=== PATIENT | female | born 1995 | race Caucasian/White ===

== ENCOUNTER → 2018-05-05 09:45 | Outpatient (CLI) | payer MEDICAID, SELFPAY ==
[2018-05-05 09:43] VITALS: BMI 19.3
[2018-05-05 10:34] LABS: Estradiol 28.1 pg/mL; Follicle Stimulating Hormone 6.5 mIU/mL; Prolactin 93.2 ng/mL; Thyroid Stim Hormone (TSH) 1.49 uIU/mL (0.358-3.74)
[2018-05-05 13:00] LABS: HIV - WCH Non-Reactive (Nonreactive)
[2018-05-05 16:31] LABS: Chlamydia Trachomatis by PCR Negative (Negative); Neisserai gonorrhoeae by PCR Negative (Negative); Probe Check PASS; Sample Adequacy Control PASS; Specimen Processing Control PASS
[2018-05-06 11:20] LABS: HEPATITIS B SURFACE AG Negative (Negative); HSV 1 IgG < 0.91 index (0.00-0.90)
[2018-05-07 15:40] LABS: HPV Reflexed? NOT INDICATED
[2018-05-08 02:05] LABS: Rapid Plasmin Reagin (RPR) NONREACTIVE (NONREACTIVE)
== END ==
PROVIDERS: Referring Provider Nurse Practitioner Women's Health; Visit Provider Nurse Practitioner Women's Health
DX: N91.1 Secondary amenorrhea (principal); Z11.3 Encounter for screening for infections with a predominantly sexual mode of transmission; Z12.4 Encounter for screening for malignant neoplasm of cervix
CPT/HCPCS: 36415; 82670; 83001; 84146; 84443; 86592; 86695; 86696; 86703; 87340; 87491; 87591; 87624; 88175; G0145

== ENCOUNTER → 2018-05-12 15:32 | Outpatient (CLI) | payer MEDICAID, SELFPAY ==
[2018-05-05 09:43] VITALS: BMI 19.3
--- NOTE | 2018-05-12 15:33 | MRI_ITS ---
We are attempting to reach Mavis Sheridan to discuss findings. An addendum with communication details will be sent when the communication is complete. STUDY: MRI BRAIN WITHOUT CONTRAST REASON FOR EXAM: Female, 23 years old. Hyperprolactinemia TECHNIQUE: Standardized multiplanar fat and water weighted pulse sequences were obtained. COMPARISON: None. FINDINGS: There is a large 1.5 x 1.2 cm fairly homogeneous mass originating from the left half of the pituitary gland. The mass is bright on T1, isointense to brain on T2, dark on DWI, very bright on T2 FLAIR. The internal carotid artery is well visualized. There the differential diagnosis to consider would be a pituitary macroadenoma with hemorrhage or necrosis, craniopharyngioma, Rathke's cleft cyst, a lipoma. A repeat study with contrast is suggested for The brainstem is normal. The corpus callosum is normal. The 7th and 8th nerve complexes are normal. Both cerebellopontine angles are clear. The cerebellar vermis and lobes are normal. The ventricles, basal cisterns and cortical sulci are normal with no midline shift and no intra or extra-axial hemorrhage or tumor mass. There is no acute infarction. The calvarium is intact. There are no scalp swelling. The vessels at the base of the brain are normal. The orbits, paranasal sinuses and mastoid air cells are normal.. MRI/Brain without Contrast IMPRESSION: A large 1.5 x 1.2 cm fairly homogeneous mass originating from the left half of the pituitary gland. It is bright on T1 and isointense on T2. The differential diagnosis to consider would be a macroadenoma with hemorrhage, a craniopharyngioma or a Rathke's cleft cyst. A lipoma is possible but less likely. A repeat study with contrast is suggested. Electronically Signed: Bert Herman MD at 6:59 EDT Tel , Service support ,
== END ==
PROVIDERS: Referring Provider Obstetrics & Gynecology; Visit Provider Obstetrics & Gynecology
DX: E22.1 Hyperprolactinemia (principal)
CPT/HCPCS: 70551

== ENCOUNTER → 2018-10-23 | Outpatient (CLI) | payer MEDICAID, SELFPAY ==
[2018-10-20 15:15] VITALS: BMI 19.3
--- NOTE | 2018-10-23 11:08 | US_ITS ---
STUDY: ULTRASOUND BREAST - RIGHT REASON FOR EXAM: Female, 23 years old. Palpable lump in the right breast. TECHNIQUE: Axial and longitudinal images of the RIGHT breast were performed with a high resolution ultrasound transducer. COMPARISON: None. FINDINGS: RIGHT Breast: The inferior half of the right breast was examined by ultrasound. There is a homogeneous thyroid glandular tissue. No sonographic abnormality is seen. US/Breast Limited Unilateral IMPRESSION: No sonographic abnormality is seen. ASSESSMENT CATEGORY: BIRADS Category 1: Negative. A letter regarding these results will be sent to the patient by the facility within 30 days. Electronically Signed: Last Humphreys, at 12:24 EDT , Service support ,
== END | disposition home or self-care (01) ==
PROVIDERS: Referring Provider Nurse Practitioner Women's Health; Visit Provider Nurse Practitioner Women's Health
DX: N63.10 Unspecified lump in the right breast, unspecified quadrant (principal)
CPT/HCPCS: 76642

== ENCOUNTER → 2019-05-12 17:07 | Outpatient (CLI) | payer MEDICAID, SELFPAY ==
[2019-04-13 11:09] VITALS: BMI 19.3
--- NOTE | 2019-05-12 17:08 | MRI_ITS ---
STUDY: MRI BRAIN WITH AND WITHOUT CONTRAST REASON FOR EXAM: Female, 24 years old. macroadenoma 1 YR F/U TECHNIQUE: Standardized multiplanar fat and water weighted pulse sequences were obtained. IV 10CC DOTAREM was administered for the contrast portion of the examination. COMPARISON: May 12, 2018 FINDINGS: Normal size of the ventricles and extra-axial spaces for the patient''s age. Normal white matter tracts of the supratentorial brain. Normal bilateral basal ganglia. Normal thalami. There is no extra-axial fluid accumulation. Normal flow voids within the major intracranial circulation suggesting patency by spin echo criteria. Normal venous enhancement. There is no enhancing intra-axial or extra-axial abnormality. There is a tiny nonenhancing nodule in the pituitary on the left measuring approximately 6.3 x 3.5 mm consistent with adenoma. Normal, infundibular stalk, optic chiasm and hypothalamus. Normal tectal plate and pineal gland. Normal midbrain, rachelle and medulla. Normal cerebellum. Normal basal cisterns. Normal bilateral temporal bones. Normal bilateral internal auditory canals. No demonstrated orbital abnormality, within the constraints of a routine brain study. Large mucous retention cyst in left maxillary sinus. Normal calvarium and skull base. Normal visualized soft tissue structures. Normal visualized upper cervical spine. The pituitary adenoma has decreased in size significantly since previous study. MRI/Brain W/WO Contrast IMPRESSION: Persistent adenoma within the pituitary which has decreased in size significantly since previous exam No other significant change Electronically Signed: Syed Clancy MD at 19:36 EDT , Service support ,
== END ==
PROVIDERS: Referring Provider Internal Medicine Endocrinology, Diabetes & Metabolism; Visit Provider Internal Medicine Endocrinology, Diabetes & Metabolism
DX: D35.2 Benign neoplasm of pituitary gland (principal)
CPT/HCPCS: 70553; A9575

== ENCOUNTER → 2019-06-12 | Outpatient (CLI) | payer MEDICAID, SELFPAY ==
[2019-04-13 11:09] VITALS: BMI 19.3
[2019-06-12 09:30] LABS: Absolute Lymphocyte Count 2.93 X10^3/uL (0.83-4.51); Absolute Neutrophil Count 2.5 X10^3/uL (2.0-7.7); Basophil# 0.07 X10^3/uL; Basophil% 1.1 % (0-1); Eosinophil# 0.16 X10^3/uL; Eosinophils% 2.6 % (0-5); Hemoglobin 15.6 g/dL (12.0-15.0); Lymphocyte # 2.93 X10^3/ul (4.0); Lymphocyte % 47.3 % (19-41); Mean Corp Hgb Conc 32.5 g/dL (32-36); Mean Corpuscular Hgb 29.8 pg (27.0-32.0); Mean Corpuscular Volume 91.8 fL (81-99); Mean Platelet Vol. 10.3 fl (6.2-12.0); Monocyte# 0.49 X10^3/uL; Monocyte% 7.9 % (0-10); NRBC Flagged by Analyzer 0 % (0-5); Neutrophil # 2.53 X10^3/uL (2.7-7.7); Neutrophil % 40.9 % (47-70); Platelet Count 226 K/mm3 (150-450); RBC Distribution Width CV 13.7 % (11.6-14.6); RBC Distribution Width SD 45.9 fl (35.1-43.9); Red Blood Count 5.23 M/mm3 (4.2-5.4); White Blood Count 6.2 K/mm3 (4.4-11.0)
[2019-06-12 10:01] LABS: Prolactin 2.7 ng/mL; T4 Free Direct 0.87 ng/dL (0.76-1.46); Thyroid Stim Hormone (TSH) 1.24 uIU/mL (0.358-3.74)
[2019-06-15 05:57] LABS: Insulin Like Growth Factor 276 ng/mL (93-342)
== END | disposition home or self-care (01) ==
PROVIDERS: Referring Provider Internal Medicine Endocrinology, Diabetes & Metabolism; Visit Provider Internal Medicine Endocrinology, Diabetes & Metabolism
DX: E22.0 Acromegaly and pituitary gigantism (principal); E22.1 Hyperprolactinemia; E23.7 Disorder of pituitary gland, unspecified; D35.2 Benign neoplasm of pituitary gland
CPT/HCPCS: 36415; 84146; 84305; 84439; 84443; 85025

== ENCOUNTER 2019-06-17 16:16 | Emergency (ER) | payer MEDICAID, SELFPAY ==
[2019-04-13 11:09] VITALS: BMI 19.3
[2019-06-17 16:17] VITALS: BP 124/84; PULSE 89; RESP 14; TEMP 36.8; O2SAT 100; BMI 18.0
--- NOTE | 2019-06-17 16:34 | ED.VIS.GEN ---
History of Present Illness Chief Complaint: Lower Extremity Injury Informant: Patient Onset: Weeks - 3 weeks Context: Gradual Onset Timing: Waxes and wanes Current Severity: Mild Maximum Severity: Moderate Narrative: Patient presents with pain to the left calf for the past 3 weeks. She is concerned that she may have a blood clot. She denies any swelling to the leg. She denies risk factors for DVT. She denies chest pain or shortness of breath. - Past Medical History (1) Hyperprolactinemia Status: Chronic (2) Pituitary macroadenoma Status: Chronic Past Medical History - Allergies and Home Meds Allergies/Adverse Reactions: Allergies bees Allergy (Uncoded 06/17/19 16:17) Hives Primary Care Physician: Care Physician,No Primary [Primary Care Provider] - Prior records reviewed: Yes Smoking Status: Former smoker Review of Systems General: Denies: Chills, Fever Eyes: Denies: Visual changes - bilaterally ENT: Denies: Bilateral ear pain Cardiovascular: Denies: Chest pain Respiratory: Denies: Dyspnea Gastrointestinal: Denies: Abdominal pain, Nausea, Vomiting, Diarrhea Musculoskeletal: Reports: Extremity Pain. Denies: Swelling Skin: Denies: Rash Neurological: Denies: Headache, Weakness, Parasthesia Hematologic: Denies: Easy bruising, Easy bleeding Allergy: Denies: Uticaria Physical Exam Vital Signs/Narrative: Vital Signs Temp Pulse Resp BP Pulse Ox 06/17/19 16:17 98.3 F 89 14 124/84 H 100 Inital Vital Signs reviewed: Yes General: Well nourished, Well developed Head: Normocephalic ENT: Dry mucous membranes Neck: Supple Cardiovascular: Regular rate, Regular rhythm Respiratory: No distress, CTA bilaterally Abdomen: Soft, Nontender Extremities: - - Mild tenderness to the proximal left posterior calf. No edema. No erythema or cords. Strong distal pulses. No joint tenderness. Full range of motion. Neurological: Alert, Oriented x3, Normal Strength, Normal Sensation Psychological: Normal affect Diagnostic/Tx/Re-eval Impressions Venous Duplex 06/17/19 16:43 IMPRESSION: Normal venous Doppler ultrasound of the lower extremity. Electronically Signed: John Reyna MD at 17:51 EDT Tel , Service support , - Medical Decision Making Venous ultrasound reveals no evidence of DVT. She will be started on anti-inflammatories. She is referred to abelino Ngo in the no doc list for follow-up. ED Disposition - Plan for ED Patient: Disposition: Home or Assisted Living Diagnosis: Strain of calf muscle Instructions: ED Strain Muscle Ext Prescriptions: Naproxen [Naprosyn] 500 mg PO BID PRN #14 tab PRN Reason: Pain Score 4-10/10 Transmission Status: Pending to [id number] Referrals: Sarabjit Omer MD [STAFF PHYSICIAN] - As Needed
--- NOTE | 2019-06-17 16:43 | US_ITS ---
STUDY: VENOUS DOPPLER ULTRASOUND - LEFT LOWER EXTREMITY REASON FOR EXAM: Female, 24 years old. LEFT LEG PAIN TECHNIQUE: Ultrasound evaluation of the deep vein system to include puente-scale imaging and compression was performed. Puente-scale imaging and Doppler sonographic evaluation, including duplex spectral analysis and qualitative color flow sonography, was performed. COMPARISON: None. FINDINGS: Common Femoral Vein: Normal compression, spontaneity and augmentation. Normal color Doppler. Common Femoral Vein/Greater Saphenous Junction: Normal compression, spontaneity and augmentation. Normal color Doppler. Deep Femoral Vein: Normal compression, spontaneity and augmentation. Normal color Doppler. Femoral Proximal: Normal compression, spontaneity and augmentation. Normal color Doppler. Femoral Middle: Normal compression, spontaneity and augmentation. Normal color Doppler. Femoral Distal: Normal compression, spontaneity and augmentation. Normal color Doppler. Popliteal Vein: Normal compression, spontaneity and augmentation. Normal color Doppler. Posterior Tibial Vein: Normal compression, spontaneity and augmentation. Normal color Doppler. Peroneal Vein: Normal compression, spontaneity and augmentation. Normal color Doppler. US/Venous Duplex Imag/Limited/Uni IMPRESSION: Normal venous Doppler ultrasound of the lower extremity. Electronically Signed: John Reyna MD at 17:51 EDT Tel , Service support ,
[2019-06-17 18:02] VITALS: BP 118/74; PULSE 62; RESP 15; O2SAT 98
== END 2019-06-17 18:02 | disposition home or self-care (01) ==
PROVIDERS: Emergency Provider Emergency Medicine
DX: S86.112A Strain of other muscle(s) and tendon(s) of posterior muscle group at lower leg level, left leg, initial encounter (principal); Z87.891 Personal history of nicotine dependence; X58.XXXA Exposure to other specified factors, initial encounter; Y93.89 Activity, other specified; Y92.89 Other specified places as the place of occurrence of the external cause; Y99.8 Other external cause status
CPT/HCPCS: 93971; 99282

== ENCOUNTER → 2019-08-10 | Outpatient (CLI) | payer MEDICAID, SELFPAY ==
[2019-08-10 10:43] LABS: Prolactin 3.3 ng/mL
[2019-08-10 12:43] LABS: Internal QC Validated? YES +Cl - CLEAR BKGD; Pregnancy, Serum, hCG Quali. NEGATIVE Negative
[2019-08-10 13:00] LABS: Estradiol 58.1 pg/mL; Follicle Stimulating Hormone 6.6 mIU/mL; Luteinizing Hormone 34.4 mIU/mL; T4 Free Direct 0.86 ng/dL (0.76-1.46)
[2019-08-11 18:18] LABS: Somatomedin C 269 ng/mL (101-347)
== END | disposition home or self-care (01) ==
LOC: LAB 09:21
PROVIDERS: Referring Provider Internal Medicine Endocrinology, Diabetes & Metabolism; Visit Provider Internal Medicine Endocrinology, Diabetes & Metabolism
DX: D35.2 Benign neoplasm of pituitary gland (principal); E22.1 Hyperprolactinemia; N91.2 Amenorrhea, unspecified
CPT/HCPCS: 36415; 82670; 83001; 83002; 84146; 84305; 84439; 84703

== ENCOUNTER → 2020-02-09 15:40 | Outpatient (CLI) | payer MEDICAID, SELFPAY ==
[2020-02-09 16:00] LABS: Absolute Lymphocyte Count 2.35 X10^3/uL (0.83-4.51); Absolute Neutrophil Count 5.1 X10^3/uL (2.0-7.7); Basophil# 0.07 X10^3/uL; Basophil% 0.9 % (0-1); Eosinophil# 0.03 X10^3/uL; Eosinophils% 0.4 % (0-5); Hematocrit 46.7 % (37-47); Hemoglobin 15.7 g/dL (12.0-15.0); Lymphocyte # 2.35 X10^3/ul (4.0); Mean Corp Hgb Conc 33.6 g/dL (32-36); Mean Corpuscular Volume 89.1 fL (81-99); Monocyte# 0.54 X10^3/uL; Monocyte% 6.7 % (0-10); NRBC Flagged by Analyzer 0 % (0-5); Neutrophil # 5.09 X10^3/uL (2.7-7.7); Neutrophil % 62.8 % (47-70); Platelet Count 300 K/mm3 (150-450); RBC Distribution Width CV 12.8 % (11.6-14.6); RBC Distribution Width SD 42.3 fl (35.1-43.9); Red Blood Count 5.24 M/mm3 (4.2-5.4); White Blood Count 8.1 K/mm3 (4.4-11.0)
[2020-02-09 17:07] LABS: ALB/GLOB Ratio 1.4 RATIO (0.9-2.4); AST(SGOT) 35 U/L (15-37); Alanine Aminotransfer ALT/SGPT 37 U/L (13-56); Albumin, Serum 4.6 g/dL (3.2-5.0); Alkaline Phosphatase 55 U/L (45-117); Anion Gap 10 (5-15); BUN 13 mg/dL (7-18); BUN/Creat Ratio 17.2 RATIO (10-20); Calcium,Total 9.8 mg/dL (8.5-10.1); Chloride 102 mmol/L (98-107); Creatinine, Serum 0.76 mg/dL (0.55-1.02); EST Glomerular Filtration Rate 99 mL/min (>60); Est Glom Filt Rate - Afr Amer 120 mL/min (>60); Estradiol 48.3 pg/mL; Globulin 3.2 g/dL (2.2-4.2); Glucose 96 mg/dL (74-106); Potassium 3.5 mmol/L (3.5-5.1); Protein, Total 7.8 g/dL (6.4-8.2); Sodium Level 137 mmol/L (136-145); T4 Free Direct 1.09 ng/dL (0.76-1.46); Thyroid Stim Hormone (TSH) 1.41 uIU/mL (0.358-3.74)
== END ==
PROVIDERS: PCP Family Medicine; Visit Provider Internal Medicine Endocrinology, Diabetes & Metabolism
DX: E22.1 Hyperprolactinemia (principal); F32.9 Major depressive disorder, single episode, unspecified; F41.9 Anxiety disorder, unspecified; R25.1 Tremor, unspecified
CPT/HCPCS: 36415; 80053; 82670; 84146; 84439; 84443; 85025

== ENCOUNTER → 2020-12-11 15:50 | Outpatient (CLI) | payer MEDICAID, SELFPAY ==
[2020-12-11 19:12] LABS: Prolactin 8.3 ng/mL; Thyroid Stim Hormone (TSH) 1.09 uIU/mL (0.358-3.74)
== END ==
PROVIDERS: PCP Family Medicine; Visit Provider Internal Medicine Endocrinology, Diabetes & Metabolism
DX: E22.1 Hyperprolactinemia (principal)
CPT/HCPCS: 36415; 84146; 84439; 84443

== ENCOUNTER 2021-04-17 09:49 | Outpatient (CLI) | payer MEDICAID, SELFPAY ==
[2021-04-17 11:12] LABS: Prolactin 8.7 ng/mL
[2021-04-18 22:07] LABS: Chlamydia By Nucleic Acid AMP Negative (Negative)
[2021-04-19 19:12] LABS: Gonococcus By Nucleic Acid AMP Negative (Negative)
[2021-04-20 15:25] LABS: HPV Reflexed? NOT INDICATED
== END 2021-04-17 23:59 | disposition home or self-care (01) ==
LOC: LAB 09:52
PROVIDERS: Nurse Practitioner Women's Health; PCP Family Medicine; Referring Provider Internal Medicine Endocrinology, Diabetes & Metabolism; Visit Provider Internal Medicine Endocrinology, Diabetes & Metabolism
DX: Z12.4 Encounter for screening for malignant neoplasm of cervix (principal); Z11.3 Encounter for screening for infections with a predominantly sexual mode of transmission; N76.0 Acute vaginitis
CPT/HCPCS: 36415; 84146; 87070; 87205; 87491; 87591; 88175; G0145

== ENCOUNTER → 2021-08-22 | Outpatient (CLI) | payer MEDICAID, SELFPAY ==
[2021-08-23 22:07] LABS: Chlamydia By Nucleic Acid AMP Negative (Negative)
[2021-08-23 22:23] LABS: Gonococcus By Nucleic Acid AMP Negative (Negative)
== END | disposition home or self-care (01) ==
LOC: LABSPEC 11:40
PROVIDERS: PCP Family Medicine; Visit Provider Nurse Practitioner Women's Health
DX: N76.0 Acute vaginitis (principal); Z11.3 Encounter for screening for infections with a predominantly sexual mode of transmission
CPT/HCPCS: 87070; 87205; 87491; 87591

== ENCOUNTER → 2022-04-18 | Outpatient (CLI) | payer MEDICAID, SELFPAY ==
[2022-04-18 13:16] LABS: Estradiol 66.5 pg/mL; Prolactin 6.5 ng/mL
== END | disposition home or self-care (01) ==
LOC: LAB 11:39
PROVIDERS: PCP Family Medicine; Referring Provider Internal Medicine Endocrinology, Diabetes & Metabolism; Visit Provider Internal Medicine Endocrinology, Diabetes & Metabolism
DX: D35.2 Benign neoplasm of pituitary gland (principal); E22.1 Hyperprolactinemia
CPT/HCPCS: 36415; 82670; 84146

== ENCOUNTER 2022-07-02 10:08 | Outpatient (RCR) | payer MEDICAID, SELFPAY ==
--- NOTE | 2022-07-02 13:48 | BH.MTP_ITS ---
Master Treatment Plan - Patient Information Program Physician:: Dr. Marce Ma Primary Therapist:: Meka MONTES DE OCA - Psychiatric Diagnoses Psychiatric Diagnoses:: Panic disorder F 41.0; Agoraphobia; Social anxiety disorder Diagnosis Code(s):: F 41.0 - Estimated LOS Estimated LOS (in weeks):: 6 Problem/Goal #1 - Problem/Goal #1 Stated Goal:: Pt will reduce anxiety, avoidance, and panic while increasing ability to function on daily basis Description of Barriers: Pt's anxiety and panic disorder have been impacting pt's social, occupational, and familial functioning. Pt is unable to go to stores or go to stores due to anxiety and panic. Pt is not currently connected with outpatient services. Functional Impact: Pt is a 27-year-old female with a history of panic disorder and agoraphobia who was referred to [facility] tx by her instant potato processor at [facility]. Pt reports severe anxiety and agoraphobia for the past two years. Pt has been unable to work, go to social events with friends and family, and she barely leaves her house. Pt endorses panic attacks, fear of panic attacks, social anxiety, avoidance, ruminations, poor sleep, racing thoughts, and isolation. Goal Relevant Strengths/Supports: Pt is motivated to change and enjoys being in nature. - Objectives Objective #1 Stated Objective: Pt will identify 2-3 anxiety triggers and 2 coping skills to use when feeling anxious to manage anxiety as shown by decreasing DSM-5 scores for anxiety. Interventions: Therapist will provide education on anxiety, avoidance behaviors, and maintenance cycles. Therapist will help pt explore personal symptoms and warning signs of anxiety and panic. Therapist will teach pt coping skills to improve emotional regulation, mindfulness, and distress tolerance to help pt cope with anxiety in the moment. Discharge Criteria: Pt will have accomplished this goal when can identify at least 2 triggers and report using 2 coping skills to manage anxiety. Additionally, pt will have accomplished this goal when DSM-5 scores show a reduction for anxiety. Target Date: 08/13/22 Review Date: 07/23/22 Status: open Objective #2 Stated Objective: Pt will reduce avoidance behaviors that reinforce anxiety by setting 1-2 small exposure goals a week to increase socialization, increase mastery, and reduce anxiety over time. Interventions: Through group and individual sessions, pt will learn about the benefits of setting exposure goals to overcome anxiety-producing situations. Therapist will help pt set SMART goals and challenge barriers. Therapist will use cognitive restructuring techniques and help pt gain awareness of negative thoughts that reinforce avoidance behaviors and fear of judgement. Therapist will help pt incorporate mindfulness, opposite action, and self-talk strategies to manage anxiety. Discharge Criteria: Pt will have accomplished this goal when can report accomplishing at least one small exposure goal a week. Additionally, pt will be able to report decreased avoidance behaviors. Target Date: 08/13/22 Review Date: 07/23/22 Status: open Problem/Goal #2 - Problem/Goal #2 Stated Goal:: Pt will decrease depressive symptoms, lack motivation, isolation, and improve self-care. Description of Barriers: Pt's anxiety and panic disorder have been impacting pt's social, occupational, and familial functioning. Pt is unable to go to stores or go to stores due to anxiety and panic. Pt is not currently connected with outpatient services. Functional Impact: Pt is a 27-year-old female with a history of panic disorder and agoraphobia who was referred to [facility] tx by her instant potato processor at [facility]. Pt reports severe anxiety and agoraphobia for the past two years. Pt has been unable to work, go to social events with friends and family, and she barely leaves her house. Pt endorses panic attacks, fear of panic attacks, social anxiety, avoidance, ruminations, poor sleep, racing thoughts, and isolation. Goal Relevant Strengths/Supports: Pt is motivated to change and enjoys being in nature. - Objectives Objective #1 Stated Objective: Pt will learn and utilize 2-3 healthy coping strategies to better manage depressive symptoms and reduce isolation as shown by a decrease of DMS-5 symptoms for depression. Interventions: Through group and individual sessions, therapist will help pt identify triggers and warning signs of depression and guilt including emotional, physical, and behavioral changes. Therapist will teach pt various coping skills to manage symptoms and give pt tangible resources to use to regulate emotions. Therapist will use cognitive restructuring techniques and help pt gain awareness of negative thoughts that reinforce guilt and depression. Therapist will provide psychoeducation on maintenance cycles and help pt learn ways to break unhealthy maintenance cycles. Therapist will help pt incorporate behavioral activation and assist pt in setting SMART goals. Discharge Criteria: Pt will have met this goal when can report learning and using at least 2 coping skills to manage depressive symptoms and reduce isolation. Additionally, pt will have met this goal when pt's DSM-5 scores for depression decrease. Target Date: 08/13/22 Review Date: 07/23/22 Status: open Objective #2 Stated Objective: Pt will reduce anhedonia and improve mood through setting and accomplishing 2-3 behavioral activation goals a week. Interventions: Through group and individual sessions, pt will learn how to set small SMART goals to promote mood stability. Therapist will provide education on maintenance cycles for depression and help pt learn how to break unhealthy maintenance cycles Discharge Criteria: Pt will have accomplished this goal when can report accomplishing at least two behavioral activation goal a week. Target Date: 08/13/22 Review Date: 07/23/22 Status: open
--- NOTE | 2022-07-02 13:48 | BH.COMM ---
Communication Note - Communication with Client Communication Note: Met with patient to complete initial paperwork. Complete [facility] Suicide Screening. Low risk. Denies active SI, plan, or intent. No history of suicide attempts. History of thoughts of killing herself with a gun, but this was two years ago. No SI or thoughts of within the last month per her report. Protective factors. Future-oriented. Consulted with Dr. Fontanez with plan to admit to IOP level of care with dx F41.0
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
--- NOTE | 2022-07-02 13:49 | BH.PSA ---
Development & Family of Origin - Family History Family History: Family History (Last Reviewed 04/18/22 @ 11:[address] Perez Byrne MD) Grandfather Myocardial infarction Suicide Assessment Treatment Plan Recommendations
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
--- NOTE | 2022-07-03 10:05 | BH.SGPN.GN ---
Behaviors/Verbalizations/Mental Status: []Pt alert and oriented, neatly dressed and groomed. Eye contact good. Motor activity appropriate. Speech within normal limits. Affect constricted, mood anxious. Thoughts linear, logical, no signs of hallucinations or delusions. Client Response/Progress/Benefit: []Pt receptive of session, mostly passively engaged throughout AEB taking notes and listening to discussion. Appeared to connect with group topic of cognitive distortions and the impact of thought patterns on mental health, coping behaviors, and relationships. Pt did a lot of observing and note taking, but pt nodded in connection to the distortion of predicting the future. Pt appeared to benefit from gaining insight on distorted thinking patterns and how this impacts overall mental health. Pt?s second day of IOP tx and pt is highly anxious. Will continue IOP tx to prevent decompensation, gain healthy coping skills, and improve daily functioning. Narrative Note: []
--- NOTE | 2022-07-03 11:12 | BH.SGPN.GN ---
Behaviors/Verbalizations/Mental Status: []Eye contact is good. Motor activity is appropriate. Appearance is casual. Speech is WNL. Mood is depressed and anxious. Affect is congruent. Thoughts are linear and logical. No evidence of psychosis. Client Response/Progress/Benefit: []Pt first day in IOP tx, did well to remain an engaged participant AEB providing input during small group discussion and engaging in activity. Activity involved working with peers to answer questions related to psychoeducation on cognitive distortions and practicing reframing distorted thoughts. Pt collaborated with the group to determine the answers. Identified cognitive distortions pt personally struggles with the most as disqualifying the positives, jumping to conclusions, and all or nothing thinking. Able to identify the impact distortions has on pt?s mental health. Benefited from rehearsing ways to challenge/reframe cognitive distortions and by gaining increased insight into examples/definitions of 10 most common cognitive distortions. Will continue IOP to improve anxiety management, challenge distorted thought patterns, and prevent decompensation. Narrative Note: []
[2022-07-03 11:43] VITALS: BP 112/72; PULSE 71
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
--- NOTE | 2022-07-03 12:43 | BH.DR.ITP ---
Initial Treatment Plan Patient Information Visit Information: ADMISSION DATE: EXPECTED LOS: 4-6 weeks Problems/Symptoms Problem #1:: Anxiety Symptom:: Worry, rumination, panic attacks, avoidance, inability to leave the house Problem #2:: Depression Symptom:: Sadness, low energy, decreased concentration
--- NOTE | 2022-07-08 09:00 | BH.SGPN.GN ---
Behaviors/Verbalizations/Mental Status: []Pt alert and oriented, casually dressed and groomed. Eye contact fair. Motor activity appropriate. Speech within normal limits. Affect constricted, mood anxious. Thoughts linear, logical, no signs of hallucinations or delusions. Reviewed pt?s symptom tracker, indicates suicidal thoughts but reports ability to manage thoughts and maintain safety. Pt has chronic suicidal ideation. Client Response/Progress/Benefit: []Pt responded well to session, attentive and receptive to feedback. Client reported mental positive as cleaning and putting up their new chicken coop. Struggled with identifying additional mental positive but able to do so with assistance from therapist. Client agreed coming to IOP today as a mental health positive because she is feeling anxious about returning and wanting to stay home. Client noted her stressor was worried that the chickens would make it through the night because they had found a whole in the fence right before bed. Client stated that stressor was mitigated when she found the chickens okay this morning. Seemed to benefit from support from peers. Pt will continue IOP tx to improve daily functioning, increase healthy coping skills, and prevent decompensation.
--- NOTE | 2022-07-08 10:10 | BH.SGPN.GN ---
Behaviors/Verbalizations/Mental Status: []Pt alert and oriented, casually dressed and groomed. Eye contact good. Motor activity appropriate. Speech within normal limits. Affect constricted, mood anxious and depressed. Thoughts linear, logical, no signs of hallucinations or delusions. Client Response/Progress/Benefit: []Pt was an active participant in group discussion and activity. Attentive during psychoeducation. Along with peers, pt was able to identify barriers to taking action. Identified several symptoms and stressors that she feels are holding her back from progress such as negative self-talk, anxiety, depression, isolation, and ?assuming the worst?.? Stated these things have kept pt from making healthy changes and led to further isolation and avoidance. Pt shared that she wants to begin addressing the impact negative self-talk has had on her ability to take action. Benefited from increased self-awareness of obstacles. Will continue IOP tx to improve anxiety management, promote consistent skill application, and further reduce negative thinking. Narrative Note: []
--- NOTE | 2022-07-08 11:05 | BH.SGPN.GN ---
Behaviors/Verbalizations/Mental Status: []Pt alert and oriented, casually dressed and groomed. Eye contact good. Motor activity appropriate. Speech within normal limits. Affect constricted, mood anxious. Thoughts linear, logical, no signs of hallucinations or delusions. Client Response/Progress/Benefit: []Pt responded well to session, taking notes and participating in worksheet discussion. Pt connected with the zones of action/change and that making sustainable change comes from stepping out of one?s comfort zone into the learning zone. Pt set a goal to gain control over her avoidance and isolation. Pt reported plans to challenge herself to get out at least once this week and go to [facility]. Pt identified using self-talk, breathing exercises, and going with a support. Appeared to benefit from identifying a small goal to benefit mental health. Will continue IOP tx to prevent decompensation, reduce avoidance, and gain distress tolerance skills. Narrative Note: []
--- NOTE | 2022-07-08 14:08 | BH.MDN ---
Multi-Disciplinary Note - Note 30-min Individual Time Started:: 12:00 Date: 07/08/22 Purpose of session/treatment goals addressed:: To work on goal #1 of pt's tx plan. Eye Contact:: Good Motor Activity:: Appropriate Appearance:: Neat Speech:: Soft Mood:: Anxious, Depressed Affect:: Congruent Thoughts:: Linear, Logical, No evidence of hallucinations/delusions noted Staff Interventions:: thought challenging, psychoeducation on: - ERP, warning signs for anxiety, and the cognitive triangle., CBT techniques, mindfulness skills - practiced PMR, strengths perspective, goal setting - started a fear ladder Client Response:: Pt responded well to session, open to meeting with therapist. Pt is still highly anxious in group, which is to be expected, but pt has been consistent with attendance. Pt got chickens over the weekend which was both a positive and stressor. Pt shared her sleep has also been poor because she is anxious to come to IOP. Pt receptive to learning about maintenance cycles, fear ladders, and the cognitive triangle. Pt able to identify her personal warning signs (physical, cognitive, and behavioral) for anxiety. Practiced progressive muscle relaxation in session as well as deep breathing to help with the physical symptoms. Pt also receptive to starting a fear ladder and identified a long-term goal of being able to go to any store alone. Pt has not been leaving her house much at all which impacts her overall functioning and relationships. Pt identified several other goals for her fear ladder such as going into a gas station, going into a store alone, picking up food from a restaurant, and talking to someone in a store. Pt will work on ordering these for homework. Pt encouraged to practice the mindfulness skills for homework as well. Risks/Concerns:: Pt denies any suicidal ideations, plan, or intent as of 07/08/22. Progress Toward Goals/Plan:: Pt's symptoms have not changed since last week, but pt is demonstrating progress by her consistent attendance. Pt receptive to creating a fear ladder to increase exposure and reduce anxiety over time. Pt continues to endorse severe anxiety with fear of having a panic attack, fear of judgement, and fear of being trapped Pt is still isolating, but coming to IOP three times a week has been helping with this. Pt will continue IOP tx to prevent decompensation, improve distress tolerance skills, and reduce avoidance. Time Stopped:: 12:30
--- NOTE | 2022-07-09 09:05 | BH.SGPN.GN ---
Behaviors/Verbalizations/Mental Status: [] Eye contact is good. Motor activity is appropriate. Appearance is casual. Speech is Appropriate. Mood is anxious. Affect is congruent. Thoughts are linear and logical. No evidence of psychosis. Reviewed daily check in sheet and no reports of suicidal ideations or intent. Client Response/Progress/Benefit: [] Pt participated at times during group discussion. Attentive. Emotion for today is ?happy?. Daily symptom tracker notes 05/22 for axniety. Mental health win was ? I went to the store by myself yesterday?. Reports that she was motivated after IOP and decided to start to begin to work on exposure and her fear ladder. Pt has struggled with leaving the house alone and going shopping by herself. She is proud of herself for starting IOP and for slowly making progress. Benefited from group support, encouragement, and feedback. Will continue in IOP to prevent decompensation, improve functioning, and to increase skills to manage intrusive thoughts. Narrative Note: []
--- NOTE | 2022-07-09 10:20 | BH.SGPN.GN ---
Behaviors/Verbalizations/Mental Status: []Pt alert and oriented, casually dressed and groomed. Eye contact good. Motor activity appropriate. Speech tangential. Affect congruent, mood anxious. Thoughts linear, logical, no signs of hallucinations or delusions. Client Response/Progress/Benefit: []Pt participated in group discussions. Active participant in experiential activity. Attentive during psychoeducation. Attentive as peers shared types of social supports and pt identified own as her boyfriend, IOP, two friends, her mom, and hobbies. Attentive as group identified mental health benefits of social support. Contributed as peers worked together to identify obstacles to utilizing support. Pt identified personal barriers as depending on her supports ?too much? and remembering all the support she has available. Benefited from increased awareness of mental health benefits of social support and obstacles that prevent one from utilizing support. Will continue IOP tx to prevent decompensation, gain distress tolerance skills, and reduce avoidance. Narrative Note: []
--- NOTE | 2022-07-09 11:20 | BH.SGPN.GN ---
Behaviors/Verbalizations/Mental Status: []Client alert and oriented, casually dressed and groomed. Eye contact good. Motor activity appropriate. Speech within normal limits. Affect congruent, mood depressed and anxious. Thoughts linear, logical, no signs of hallucinations or delusions. Client Response/Progress/Benefit: [] Client was an active participant throughout AEB contributing to small group discussion, participating in the activity, and taking notes. Client provided input during discussion on the types of support our supports can provide. Able to identify the types of supports provided by current support system and barriers that get in the way of using those supports. Client reported gaining awareness that they could benefit from more informational supports. Shared this will help to improve her understanding of her anxiety and application of skills to better cope. Client identified steps to achieve this as continuing with IOP tx, talk with her mental health providers, and find books on trauma. Client seemed to benefit from identifying the types of support and areas client could benefit from improving. Recommended to continue IOP tx to increase healthy coping, reduce anxiety/avoidance, and improve overall functioning. Narrative Note: []
--- NOTE | 2022-07-11 09:03 | BH.SGPN.GN ---
Behaviors/Verbalizations/Mental Status: []Pt alert and oriented, casually dressed and groomed. Eye contact good. Motor activity appropriate. Speech within normal limits. Affect congruent, mood depressed and anxious. Thoughts linear, logical, no signs of hallucinations or delusions. Reviewed pt?s symptom tracker, no SI, plan, or intent indicated as of this date. Client Response/Progress/Benefit: []Pt responded well to session, attentive and receptive to feedback. Pt shared mental positive as taking time to practice self-care and reports more consistently going for walks near her house. Additional win identified as sticking with IOP tx despite feeling unsure about the group setting initially. Noted overall she has found the tx environment to be supportive. Shared that outside of feeling tired, she does not have a stressor this morning. Seemed to benefit from support from peers and identifying areas pt is making progress in. Pt will continue IOP tx to continue to promote use of healthy coping skills, challenge negative and anxious thinking, and prevent decompensation. Narrative Note: []
--- NOTE | 2022-07-11 10:10 | BH.SGPN.GN ---
Behaviors/Verbalizations/Mental Status: []Eye contact is good. Motor activity is appropriate. Appearance is casual. Speech is Appropriate. Mood is anxious. Affect is congruent. Thoughts are linear and logical. No evidence of psychosis. Client Response/Progress/Benefit: []Pt was an active participant in group discussions. Attentive during psychoeducation. Engaged and provided feedback along with peers on defining anxiety. Along with peers worked together to identify the benefits of anxiety which included; motivates us, helps us prepare, helps us identify danger, and can keep us safe. Participated during interactive discussion on how anxiety impacts one physically, cognitively, and behaviorally. Completed worksheet on how anxiety impacts her physically, cognitively, and behaviorally. Pt shared physically she experiences sweaty palms, cognitively she thinks worst case scenario, and behaviorally she avoids and drinks if she has to be social. Benefited from increase insight into anxiety's benefits and detriments. Will continue in IOP to prevent decompensation, improve mood stability, and reduce avoidance. Narrative Note: []
--- NOTE | 2022-07-11 11:10 | BH.SGPN.GN ---
Behaviors/Verbalizations/Mental Status: []Pt alert and oriented, casually dressed and groomed. Eye contact good. Motor activity appropriate. Speech within normal limits. Affect congruent, mood anxious. Thoughts linear, logical, no signs of hallucinations or delusions. Client Response/Progress/Benefit: []Pt was an active participant in group discussion AEB providing contributions throughout group and listening attentively to others. Attentive during psychoeducation on mindfulness and ways to utilize mindfulness techniques to improve anxiety management. The group practiced deep breathing and the 5-senses during session. Engaged and attentive during group brainstorm of healthy anxiety reduction skills including thought challenging and behavioral changes. Appeared to benefit from practicing in the moment coping skills and increasing repertoire of anxiety management skills. Pt selected wanting to work on using best case, worst case, and most realistic outcome to challenge anxious thoughts. Pt will continue IOP tx to prevent decompensation, improve daily functioning, and reduce avoidance. Narrative Note: []
--- NOTE | 2022-07-16 09:05 | BH.SGPN.GN ---
Behaviors/Verbalizations/Mental Status: [] Eye contact is good. Motor activity is appropriate. Appearance is casual. Speech is Appropriate. Mood is anxious. Affect is congruent. Thoughts are linear and logical. No evidence of psychosis. Reviewed daily check in sheet and no reports of suicidal ideations or intent. Client Response/Progress/Benefit: [] Pt participated when prompted. Emotion for today is ?happy?. Pt has a very brief and superficial check-in. Share that overall her mood has improved. Decreased anxiety and increased confidence. Her mental health wins include leaving the house more by herself. Benefited from group support and praise. Will continue in IOP to maintain gains, improve functioning, and decrease intrusive thoughts Narrative Note: []
--- NOTE | 2022-07-16 11:10 | BH.SGPN.GN ---
Behaviors/Verbalizations/Mental Status: []Client alert and oriented, casually dressed and groomed. Eye contact good. Motor activity appropriate. Speech within normal limits. Affect congruent, mood depressed and anxious. Thoughts linear, logical, no signs of hallucinations or delusions. Client Response/Progress/Benefit: []Client responded well to session, engaged and taking notes. Worked with group to identify characteristics of healthy and unhealthy relationships. Attentive during psychoeducation about characteristics of healthy, unhealthy, and abusive relationships. Client identified healthy areas of a current relationship to include: supporting each other?s goals, feel emotionally validated, and can speak without feeling judged. Shared wanting to work on addressing her over reliance on this relationship by reaching out to other supports more often to begin expanding her emotional support system. Appeared to benefit from identifying areas they are doing well in as well as areas client wants to work on to build healthier relationships. Client to continue IOP to increase healthy coping, improve daily functioning, and prevent decompensation. Narrative Note: []
--- NOTE | 2022-07-16 13:40 | BH.MDN ---
Multi-Disciplinary Note - Note 30-min Individual Time Started:: 12:05 Date: 07/16/22 Purpose of session/treatment goals addressed:: To work on goal #1 of pt's tx plan. Eye Contact:: Good Motor Activity:: Appropriate Appearance:: Neat Speech:: Appropriate Mood:: Anxious Affect:: Congruent Thoughts:: Linear, Logical, No evidence of hallucinations/delusions noted Staff Interventions:: thought challenging, psychoeducation on: - social anxiety and ERP, CBT techniques, mindfulness skills, strengths perspective, goal setting, taught coping skills Client Response:: Pt responded well to session, open to meeting with therapist. Pt shared she had an okay weekend as pt got to be outside with her dog. Pt is still unable to function at her baseline, so she is not spending time with friends and going to events. Pt completed her homework which was to identify steps on her fear ladder. Pt also discussed what her IOP goal could be as pt wants to make it realistic. Pt decided that it could be a good goal to either begin volunteering or apply for a part-time job by the time she completes IOP. Pt completed her fear ladder with low-level anxiety tasks at the bottom up to high-level anxiety tasks at the top. At the top of pt's fear ladder she had have a conversation with someone she knows and going to work. Pt reports that she worries about being trapped in situations, which is why talking to people and having a job triggers so much anxiety. Pt feels that she will not be able to get out of a conversation or leave work. Pt receptive to practicing distress tolerance tolerance and managing anxiety while at IOP. Discussed how working on managing her anxiety and overcoming her fear of embarrassment at IOP can help pt in the work environment. Pt practiced sitting in silence for 15 seconds in session as this was identified as anxiety producing. Pt shared that it made her anxious, but it wasn't as bad as I thought. Pt also practiced deep breathing. Risks/Concerns:: No report of SI or thoughts of . Progress Toward Goals/Plan:: Pt continues to make progress towards her tx goals AEB pt's consistent attendance and increasing participation in group sessions. Pt is still quiet and highly anxious in group, but she is sharing when prompted. Pt followed through with her homework to complete her fear ladder and pt is willing to work on sitting with the uncomfortable at [facility] as well. Pt continues to endorse severe anxiety, avoidance, ruminations, fear of judgement, panic, and a depressed mood. Pt is still unable to function at her baseline. Pt will continue IOP tx to prevent decompensation and gain healthy coping skills to improve functioning. Time Stopped:: 12:35
--- NOTE | 2022-07-17 09:00 | BH.SGPN.GN ---
Behaviors/Verbalizations/Mental Status: [] Eye contact good. Motor activity appropriate. Speech within normal limits. Affect congruent, euthymic. Thoughts linear, logical, no signs of hallucinations or delusions. Reviewed client?s symptom tracker, no risk for suicidal ideation, plan, or intent. Client Response/Progress/Benefit: [] Client responded well to session, attentive and willing to process with group. Client reported mental health positive as going to the store yesterday to face her anxiety. Client stated additional mental health positive as being in IOP. Client stated current stressor as struggling with getting things done around the house. Client reported she easily gets overwhelmed and then she gives up and does nothing. Client receptive to feedback from peers about ideas on how to make chores more manageable and increase productivity. Client appeared to benefit from group support and encouragement. client to continue IOP to increase healthy coping skills, decrease avoidant behavior, and prevent decompensation.
--- NOTE | 2022-07-17 10:10 | BH.SGPN.GN ---
Behaviors/Verbalizations/Mental Status: []Eye contact is good. Motor activity is appropriate. Appearance is casual. Speech is Appropriate. Mood is depressed and anxious. Affect is congruent. Thoughts are linear and logical. No evidence of psychosis. Client Response/Progress/Benefit: []Pt was attentive throughout group discussion and experiential activity, though remaining mostly passive throughout. Actively listening and taking notes during psychoeducation on resilience. Participated in interactive discussion with peers on the definition of resilience and where it comes from. Group identified that resiliency can be impacted by; past experiences, learned behaviors, and current mental health state. Group also worked together to identify the benefits of being resilient and how it is related to mental health. Pt shared that one's ability to be resilient improves or gets easier with time and new experiences. Able to relate experiential activity of group juggle to topics of resilience. Worked well with peers in small group in which they identified factors that contribute to resilience. Benefited from increased awareness of resilience and the factors that contribute to building resilience. Will continue in IOP to prevent decompensation and further promote mood stability, as well as improve ability to manage daily living stressors and further reduce depressive sx. Narrative Note: []
--- NOTE | 2022-07-17 11:10 | BH.SGPN.GN ---
Behaviors/Verbalizations/Mental Status: []Pt alert and oriented, neatly dressed and groomed. Eye contact good. Motor activity appropriate. Speech within normal limits. Affect congruent, mood anxious. Thoughts linear, logical, no signs of hallucinations or delusions Client Response/Progress/Benefit: []Pt responded well to session AEB completing the resilience worksheet provided. Pt participated in the discussion and worked cooperatively with group to identify strategies to enhance each of the components discussed. Pt reports belief they already use resilience trait of??taking care of myself.? Pt shared she tries to practice self-care which has helped pt feel more rashaad. Pt stated they would like to continue to develop resilience trait of ?moving towards my goals.? Pt seemed to benefit from discussing strategies for improving personal resilience and identifying resilience traits pt already possesses. Progress reported in pt?s reducing avoidance of places. Will continue IOP tx to further improve mood stability, reduce avoidance and increase self-confidence. Narrative Note: []
== END 2022-07-17 23:59 ==
LOC: BHIOP 10:08
PROVIDERS: PCP Family Medicine; Referring Provider Psychiatry & Neurology Psychiatry; Visit Provider Psychiatry & Neurology Psychiatry
DX: F41.0 Panic disorder [episodic paroxysmal anxiety] (principal); F40.00 Agoraphobia, unspecified; F41.9 Anxiety disorder, unspecified
CPT/HCPCS: 90792; H2012; H2020; S9480; T1002; 90832

== ENCOUNTER 2022-07-18 07:43 | Outpatient (RCR) | payer MEDICAID, SELFPAY ==
[2022-07-18 00:48] VITALS: BP 112/72; PULSE 71
--- NOTE | 2022-07-24 09:00 | BH.SGPN.GN ---
Behaviors/Verbalizations/Mental Status: [] Eye contact is good. Motor activity is appropriate. Appearance is casual. Speech is Appropriate. Mood is anxious. Affect is congruent. Thoughts are linear and logical. No evidence of psychosis. Reviewed daily check in sheet and no reports of suicidal ideations or intent. Client Response/Progress/Benefit: [] Pt participated at times during the group discussion. Attentive. Daily symptom tracker notes 04/21 for depression. Emotion for today is tired. Mental health win was that she impulsively decided to go to [employer] yesterday with his BF. Due to her social anxiety and significant isolation in the past year this was a very impactful mental health win. States that she has panic a few times however overall the trip was a success. 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 Insight that initially her anxiety was high however it got easier. Progress noted. Benefited from group support, encouragement, and feedback. Will continue in IOP to prevent decompensation, decrease intrusive thoughts, and improve functioning. Narrative Note: []
--- NOTE | 2022-07-24 10:15 | BH.SGPN.GN ---
Behaviors/Verbalizations/Mental Status: []Eye contact is good. Motor activity is appropriate. Appearance is casual. Speech is Appropriate. Mood is anxious. Affect is congruent. Thoughts are linear and logical. No evidence of psychosis. Client Response/Progress/Benefit: []Pt was engaged at times AEB providing input, listening to others, and taking notes. Participated in interactive group discussion on internal and external barriers to mental health progress. Pt described current reality using a mountain metaphor. Pt shared feeling like ?I?m on this constant uphill climb dealing with anxiety, panic, and fear?. Reported desired reality is being on top of her emotions and using healthy coping skills. Pt shared personal barrier to desired realty include self-doubt, what if thoughts, and avoidance. ?Benefited from increased awareness of current barriers to progress as well as current/desired realities. Pt will continue IOP tx to prevent decompensation, increase distress tolerance skills, and improve daily functioning. Narrative Note: []
--- NOTE | 2022-07-24 11:10 | BH.SGPN.GN ---
Behaviors/Verbalizations/Mental Status: []Client alert and oriented, casually dressed and groomed. Eye contact fair. Motor activity appropriate. Speech within normal limits. Affect constricted, mood anxious. Thoughts linear, logical, no signs of hallucinations or delusions. Client Response/Progress/Benefit: []Client an active participant, encouraging peers and contributed as group brainstormed ideas on how to cope with internal barriers that keep clients stuck from moving towards goals. Able to identify barriers to desired reality. Worked with group to identify strategies to help overcome barriers. Identified personal barriers to desired reality. Client wants to work on overcoming the barrier of avoidance of anxious situations by using opposite action to go through her fear ladder. Benefited from group by identifying obstacles and solutions to desired reality. Client to continue IOP to continue working on fear ladder, improve distress tolerance, and prevent decompensation.
--- NOTE | 2022-07-24 12:28 | PCM.BH.PN_ITS ---
Progress Note Progress Note: And history of Present Illness/Interim History: The patient is a 27-year-old single, female with a history of social anxiety, panic attacks and agoraphobia. She is seen in follow-up at the [facility] behavioral health IOP program where I last saw the patient 3 weeks ago. The patient states that she feels she is learning valuable skills in the IOP program. Her panic attacks are less than before occurring about once a week now. She feels she is doing okay overall and feels that her mood is little better and her energy level is a little better but is still difficult for her to feel motivated and accomplish tasks. She remains tired most of the time. She is getting about 8 hours of sleep at night. She denies passive thoughts of , hopelessness, suicidal ideation, homicidal ideation, plan for suicide, hallucinations or delusions. Current Psychiatric Medications: [] Lexapro 20 mg p.o. daily (x5 months); Wellbutrin SR 75 mg p.o. twice daily (on this dose 3 weeks now); Xanax 0. 25 mg p.o. as needed for panic attack in the patient's takes this about 4 times a week overall. Once for panic attack and 3 times she takes it a week in order to allow her self to come to the IOP program. Mental Status Examination: [] Patient is a 27-year-old female who appears normal for stated age and is casually dressed and groomed with good hygiene. She has no psychomotor agitation or retardation and is ambulatory with a normal gait. Eye contact is good and speech is normal rate and rhythm and fluent with no pressure. Mood is anxious. Affect is constricted. Thought process is goal-directed and organized. Thought content: The patient is hopeful that she can improve her anxiety without any changes in medication. There is no evidence of passive thoughts of , plan for suicide, suicidal ideation, homicidal ideation or hallucinations or delusions. There is evidence that the patient is still afraid to leave the house and has significant social anxiety. Reality testing is intact. Judgment is intact. Insight is fair. Impulsivity is low. Diagnoses: [] 1. Panic disorder 2. Agoraphobia 3. Social anxiety disorder 4. Work and primary support issues Plan: [] Patient will continue the IOP program at [facility] as the structure, support, education and group therapy will hopefully prevent worsening of the patient's symptoms. She felt safe during the interview and if it anytime she does not feel safe she will let us know or go to the emergency room. Discussed with the patient increasing the Lexapro to help with her anxiety which remains significant. The patient refuses to increase Lexapro as she would like to leave the medications as is and manage her issues with therapy only. She is afraid that increasing any medication for anxiety will make her more tired. Discussed with the patient that the Wellbutrin will help with depression and give her motivation but is unlikely to help significantly with her anxiety. she will continue to follow-up with her outpatient doctors and I will see the patient in follow-up in 2 weeks.
--- NOTE | 2022-07-25 10:10 | BH.SGPN.GN ---
Behaviors/Verbalizations/Mental Status: [] Eye contact is good. Motor activity is appropriate. Appearance is casual. Speech is Appropriate. Mood is anxious. Affect is congruent. Thoughts are linear and logical. No evidence of psychosis. Client Response/Progress/Benefit: [] Pt participated at times during group discussions. Attentive. Participated in and was engaged during experiential activity. Attentive and participated at times during interactive discussion on what failure means to the group in which peers identified that failure is ... not meeting expectations, not having a desired outcome, and not succeeding in a task. Group was able to identify how fear of failure can lead to inaction, not trying, avoiding, giving up, lowering expectations, and remaining stuck. Participated at times and was attentive during interactive discussion on the role that FOF plays in mental wellness, depression, anxiety, and growth. Able to connect the experiential activity to FOF. Benefited from increased awareness of how the role that FOF plays in mental health and decision-making. Will continue in IOP to prevent decompensation, decreased isolation, and improve functioing. Narrative Note: []
--- NOTE | 2022-07-25 10:11 | BH.MDN ---
Multi-Disciplinary Note - Note 30-min Individual Time Started:: 09:30 Date: 07/25/22 Purpose of session/treatment goals addressed:: To review pt's progress at review and to work on goal #1 of pt's tx plan. Eye Contact:: Good Motor Activity:: Appropriate Appearance:: Casual Speech:: Appropriate Mood:: Euthymic, Anxious Affect:: Full Thoughts:: Linear, Logical, No evidence of hallucinations/delusions noted Staff Interventions:: thought challenging, CBT techniques, mindfulness skills, strengths perspective, reviewed DSM-5, goal setting Client Response:: Pt responded well to session, open to meeting with therapist. Pt stated she has been doing better and she is accomplishing goals from her fear ladder. Pt shared she went to [facility] by herself recent and I almost cried because I didn't think I'd be able to do that again. Pt reports finding the accountability and guidance of the fear ladder highly beneficial. Reviewed pt's DSM-5 scores since admission and pt stated she is noticing a change in mood and functioning. Pt's goal for the upcoming week is to reduce her prescribed Xanax before IOP, continue to share once in group, and to go into a gas station again and pay in monge. Pt shared doing the fear ladder has helped pt feel more confidence and challenge her fear of judgement. Pt stated she has been telling herself that other people are in their own bubble and this has helped pt focus less on what others are doing. Pt also practiced sitting in silence during session and she is now up to 20 seconds. Pt receptive to praise and will continue to work on her exposure goals. Risks/Concerns:: No SI or thoughts of noted. Progress Toward Goals/Plan:: Pt continues to make progress towards her tx goals AEB pt's consistent attendance and increasing participation in group sessions. Pt is becoming more engaged in group sessions and beginning to shared without being prompted. Pt has accomplished several things from her fear ladder and is finding benefit in this so far AEB her reducing depression (50% since admission) and reducing anxiety (25% since admission). Pt continues to endorse severe anxiety, avoidance, ruminations, fear of judgement, and panic. Pt is still unable to function at her baseline, but she is seeing progress. Pt will continue IOP tx to promote mood stability, combat anxious thought patterns and improve daily functioning. Time Stopped:: 10:00
--- NOTE | 2022-07-25 10:12 | BH.MTP_ITS ---
Treatment Plan Review Date of Admission:: 07/02/22 Date of Treatment Plan Review:: 07/25/22 Admitting Diagnoses:: Panic disorder F 41.0; Agoraphobia; Social anxiety disorder Current Diagnoses:: Panic disorder F 41.0; Agoraphobia; Social anxiety disorder Patient's Response to Treatment:: Pt has responded well to treatment AEB pt consistently attending IOP sessions and reduction of overall DSM-5 symptoms by 40% since admission. Pt contributes well during individual sessions and she is becoming more engaged during group sessions. Pt applies coping skills outside of IOP and reports overall mood is improved and that she is working on her fear ladder. Status of Current Problems and Symptoms: Pt continues to struggle with social anxiety, ruminations, avoidance, and negative self-talk. Pt is still not back to functioning at her baseline. Pt is working on facing things that make pt anxious using a fear ladder, so it is to be expected that pt's anxiety scores are not as significantly decreased as her scores for depression. Pt has a goal of not needing her Xanax by the end of IOP, so there is also a chance her anxiety will increase short-term while she is weaning off of this. Problem #1 Problem Name:: Anxiety, avoidance, and panic Status of Goals:: Objective 1-in progress. Pt?s DSM-5 scores for anxiety have decreased by 25% since admission and pt repots she is increasing confidence in her ability to challenge thoughts and manage physical symptoms. Objective 2- in progress. Pt is actively working on her ashley ladder of exposure goals and has been able to accomplish three of her goals so far. Pt has several to go to reach her end of IOP goal. Team Recommendations:: Treatment tx encourages pt to continue working on this treatment goal to further reduce avoidance, increase self-confidence and mastery, and gain positive feedback. Discussed reducing her use of her prescribed Xanax in addition to working on her fear ladder. Problem #2 Problem Name:: depressive symptoms, lack motivation, isolation Status of Goals:: Objective 1- complete with ongoing work encouraged. Pt?s DSM-5 scores for depression have decreased by 50% since admission. Pt reports improved mood and more hopefulness. Objective 2-complete with ongoing work encouraged. Pt is working on increasing self-care, getting out of the house, and she is doing more things independently. Team Recommendations:: Treatment tx encourages pt to continue working on this tx goal as pt has made progress, but she can continue to improve her self- confidence and challenge distortions. Pt is also working on reaching out to supports.
--- NOTE | 2022-07-25 11:10 | BH.SGPN.GN ---
Behaviors/Verbalizations/Mental Status: []Client alert and oriented, casually dressed and groomed. Eye contact good. Motor activity appropriate. Speech within normal limits. Affect congruent, mood anxious. Thoughts linear, logical, no signs of hallucinations or delusions. Client Response/Progress/Benefit: []Client responded well to session, engaged in the experiential activity and attentive throughout group processing. Client reported fear of failure has kept client from achieving goals, maintaining friendships, and having a job. Client completed fear of failure worksheet and was able to identify thoughts and behaviors that reinforce personal fear of failure including: past experiences, avoidance, and predicting the worst will happen. Client participated in small group discussion regarding strategies to overcome fear of failure. Identified wanting to work on positive affirmations, opposite action, and setting realistic expectations. Appeared to benefit from increased knowledge of strategies to combat fear of failure and gaining self-awareness. Client will continue IOP tx to increase self-worth, improve throughout challenging, and to reduce avoidance. Narrative Note: []
--- NOTE | 2022-07-30 09:00 | BH.SGPN.GN ---
Behaviors/Verbalizations/Mental Status: [] Eye contact is fair. Motor activity is appropriate. Appearance is casual. Speech is Appropriate. Mood is anxious. Affect is constricted. Thoughts are linear and logical. No evidence of psychosis. Reviewed daily check in sheet and no reports of suicidal ideations or intent. Client Response/Progress/Benefit: [] Pt engaged in group session AEB sharing thoughts and feelings and listening attentively to others. Pt reported mental health positive as goign outside and painting for the first time in awhile. Pt stated she was able to enjoy herself while engaging in an activity she used to really enjoy. Pt stated additional positive as challenging her anxious thoughts by asking herself what is the worst thing that can happen and what is the best thing that can happen. Pt reported this has been helping her while she works through her fear ladder. Pt reported current stressor as having some physical pain with no known medical cause. Seemed to benefit from support from peers. Will continue in IOP to continue working on fear ladder, continue use of healthy coping, and prevent decompensation.
--- NOTE | 2022-07-30 10:05 | BH.SGPN.GN ---
Behaviors/Verbalizations/Mental Status: []Eye contact is good. Motor activity is appropriate. Appearance is casual. Speech is Appropriate. Mood is dysthymic and anxious. Affect is congruent. Thoughts are linear and logical. No evidence of psychosis. Client Response/Progress/Benefit: []Pt did well to engage and was an active participant in group discussion. Attentive during psychoeducation on the CBT [place] (Thoughts, Behaviors, Emotions). Involved in group discussion on how thoughts and behaviors can contribute to maintaining adverse feelings, such as depression, anxiety, and irritability. Completed worksheet in which pt identified a thought that is keeping them stuck or is in obstacle to increased mental wellness. The thoughts that pt identified were ?something bad is going to happen?, ?I?m going to have a panic attack or embarrass myself?, ?I can?t do this?, and ?what if? thoughts. Shared this maintains anxiety cycle. Pt benefited from increased awareness of the basis of CBT therapy as well as specific thoughts that are impacting pt's progress. Will continue in IOP to improve mood stability and reduce isolation/avoidance, prevent decompensation, and to increase healthy coping skills. Narrative Note: []
--- NOTE | 2022-07-30 11:06 | BH.SGPN.GN ---
Behaviors/Verbalizations/Mental Status: []Pt alert and oriented, neatly dressed and groomed. Eye contact good. Motor activity appropriate. Speech within normal limits. Affect congruent, mood anxious and dysthymic. Thoughts linear, logical, no signs of hallucinations or delusions. Client Response/Progress/Benefit: []Pt responded well to session, contributing to discussion when prompted, and attentive throughout discussion. Pt identified a negative thought that has kept them stuck. Pt's thought was I can?t do this.? Pt reported when they think this way, pt gets anxious and shuts down which results in pt not trying and feeling bad about herself. Pt worked to reframe the thought by finding more rational, realistic ways to look at the thoughts and then processed within group setting. Pt reframed the thought to ?I have done hard things before. I don?t know if I can do this until I try.? Pt appeared to benefit from practicing challenging negative thinking. Pt will continue IOP tx to prevent decompensation, increase self-compassion, and maintain gains made. ? Narrative Note: []
--- NOTE | 2022-08-01 09:00 | BH.SGPN.GN ---
Behaviors/Verbalizations/Mental Status: []Pt alert and oriented, neatly dressed and groomed. Eye contact good. Motor activity appropriate. Speech within normal limits. Affect congruent, mood euthymic and anxious. Thoughts linear, logical, no signs of hallucinations or delusions. Reviewed pt?s symptom tracker, no risk for suicidal ideation, plan, or intent as 08/01/22 Client Response/Progress/Benefit: []Pt responded well to session, attentive and engaged. Pt reports feeling hopeful today as pt successfully took her PRN anxiety medication later today to practice sitting with her anxiety during group. Pt has been working on a fear ladder for exposure and pt wants to eventually not have to take her PRN medication at all. Pt stated she is noticing progress in her increased engagement in group by sharing and that pt is able to go more places alone. Pt's stressor today is that her old boss reached out to pt to get lunch and pt does not know how to respond, so she has been avoiding. Group offered suggestions and feedback on how to handle this stressor which pt appeared to benefit from. Pt will continue IOP tx to promote mood stability, further reduce avoidance, and improve self-confidence. Narrative Note: []
--- NOTE | 2022-08-01 10:05 | BH.SGPN.GN ---
Behaviors/Verbalizations/Mental Status: []Pt alert and oriented, casually dressed and groomed. Eye contact fair. Motor activity appropriate. Speech within normal limits. Affect constricted, mood anxious. Thoughts linear, logical, no signs of hallucinations or delusions. Client Response/Progress/Benefit: []Pt responded well to session AEB contributing to discussion, taking notes, and listening attentively to others. Group discussed the benefits of managed anger and anger as a secondary emotion. Pt completed worksheet on anger triggers and personal warning signs of anger. Pt identified their biggest triggers as rude/unkind people, not being able to function at baseline, and feeling like she's not being heard. Appeared to benefit from increased knowledge of the anger cycle as well as personal triggers. Pt to continue IOP to continue working on fear ladder, continue use of healthy coping skills, and prevent decompensation.
--- NOTE | 2022-08-01 11:05 | BH.SGPN.GN ---
Behaviors/Verbalizations/Mental Status: []Client alert and oriented, casually dressed and groomed. Eye contact good. Motor activity appropriate. Speech within normal limits. Affect constricted, mood anxious. Thoughts linear, logical, no signs of hallucinations or delusions. Client Response/Progress/Benefit: []Pt was engaged throughout AEB contributing to group discussion and self-reflection. Group finished processing cues to anger worksheet. Pt contributed as group brainstormed healthy coping skills for better managing anger which included: music, walking/exercise, taking a break, grounding tools, reflection, and journaling. Pt identified personal anger cycle and reported changing her expectations can interrupt unhealthy anger resposne. Pt appeared to benefit from identifying different techniques to manage anger as well as gaining awareness of potential consequences of unmanaged anger. Pt to continue IOP to decrease anxiety, increase healthy coping skills, and prevent decompensation.
--- NOTE | 2022-08-02 09:02 | BH.SGPN.GN ---
Behaviors/Verbalizations/Mental Status: []Eye contact good. Motor activity appropriate. Speech within normal limits. Affect congruent, mood anxious and content. Thoughts linear, logical, no signs of hallucinations or delusions. Reviewed client?s symptom tracker, no risk for suicidal ideation, plan, or intent as of 08/02/2022. Client Response/Progress/Benefit: []Client responded well to session, attentive and willing to process with group. Identified current mental health wins as managing her anxiety this morning and successfully getting to group without needing to use a Xanax. Expressed however struggling with self-critical thoughts of ?I should?ve been able to do it earlier than this?. Did well to apply self-compassion and challenge these thoughts. 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 Client appeared to benefit from group support and encouragement. Client gave positive feedback to other group members as they shared. Recommended continued IOP tx to continue to increase overall functioning, reduce avoidance, and increase thought challenging. Narrative Note: []
--- NOTE | 2022-08-02 10:10 | BH.SGPN.GN ---
Behaviors/Verbalizations/Mental Status: []Pt alert and oriented, casually dressed and groomed. Eye contact good. Motor activity appropriate. Speech within normal limits. Affect congruent, mood anxious. Thoughts linear, logical, no signs of hallucinations or delusions. Client Response/Progress/Benefit: []Pt was a passive participant in group discussion and more active in experiential activity. Attentive during psychoeducation on possible causes to developing and maintain unhealthy coping skills which can impact mental health. Pt contributed during interactive discussion identifying common unhealthy coping skills and identified personal ones as avoiding, canceling plans, and isolating. Able to make connections between experiential activity (folder towers) and importance of having a solid base of internal and external coping skills. Benefited from increased awareness of internal and external coping skills and identifying unhealthy coping skills. Pt will continue IOP tx to increase confidence, further decrease anxiety and avoidance, and improve daily functioning. ??? Narrative Note: []
--- NOTE | 2022-08-02 11:00 | BH.SGPN.GN ---
Behaviors/Verbalizations/Mental Status: []Pt alert and oriented, casually dressed and groomed. Eye contact good. Motor activity appropriate. Speech within normal limits. Affect congruent, mood anxious. Thoughts linear, logical, no signs of hallucinations or delusions Client Response/Progress/Benefit: []Pt responded well to session, taking notes and contributing. Group discussed the different categories of coping skills which included distraction, emotional release, grounding, self-love, and thought challenging.? Pt participated in creating a coping skills ?menu? from the five categories of coping skills. Pt's coping skill menu included: reading, here and now, exercise, drinking water/engaging in hobbies, and reminding self a thought is a thought not a fact. Appeared to benefit from increasing repertoire of healthy coping skills. Will continue IOP tx to continue working on fear ladder, decreasing anxiety, and prevent decompensation.
--- NOTE | 2022-08-02 14:32 | BH.MDN ---
Multi-Disciplinary Note - Note 45-min Individual Time Started:: 12:00 Date: 08/02/22 Purpose of session/treatment goals addressed:: To work on goal #1 of pt's tx plan and to challenge negative self-talk. Eye Contact:: Good Motor Activity:: Appropriate Appearance:: Casual Speech:: Appropriate, Soft Mood:: Anxious, Other - frustrated Affect:: Congruent Thoughts:: Linear, Other - ruminations, No evidence of hallucinations/delusions noted Staff Interventions:: thought challenging - practiced thought challenging using blount mind, psychoeducation on: - blount mind, CBT techniques, strengths perspective, goal setting, taught coping skills Client Response:: Pt responded well to session, open to meeting with therapist. Pt shared she did not take her Xanax this morning before group which was a significant accomplishment for pt. However, because she did not take it, pt was more anxious, which triggered negative self-talk. Pt shared she feels angry with herself for experiencing the anxiety and she has thoughts of I'm not making progress. Pt processed her frustrations and was receptive to thought challenging. Used blount mind technique to help pt look at her situation with a more balanced lens. Pt noted that four weeks ago she would have never imaged not taking a Xanax before group and she would have completely shut down. Pt also noted progress in her increasing socialization and ability to interact with others. Pt did well with challenging negative self-talk and was encouraged to continuing practicing blount mind. Risks/Concerns:: No SI or thoughts of reported. Progress Toward Goals/Plan:: Pt continues to make progress towards her tx goals AEB pt's self-report of going into stores alone and weaning off of her Xanax. Pt is also reporting less anxiety in social situations that once caused significant anxiety. Pt continues to experience panic symptoms and anxiety, but her symptoms are resolving. Pt is frustrated with herself for having a setback today, which triggered negative self-talk and self-doubt. Pt still does not feel able to get a job, but pt is getting closer to this goal. Pt will continue IOP tx to promote mood stability, further reduce avoidance, and increase self-confidence. Time Stopped:: 12:45
--- NOTE | 2022-08-06 09:02 | BH.SGPN.GN ---
Behaviors/Verbalizations/Mental Status: []Eye contact good. Motor activity appropriate. Speech within normal limits. Affect congruent, mood anxious. Thoughts linear, logical, no signs of hallucinations or delusions. Reviewed client?s symptom tracker, no risk for suicidal ideation, plan, or intent as of 08/06/2022. Client Response/Progress/Benefit: []Client responded well to session, attentive and willing to process with group. Identified current mental health wins as making progress on her ?fear ladder? and accomplishing two of the associated goals. Shared positive self-talk and opposite action aided in her success. Additional win is continuing to make small improvements in her nutrition and increased water intake. Current stressor identified as feeling pressure to find a job and struggling with uncertainty of her ability to be successful in doing so. Responded well to encouragement and suggestions on easing back into employment provided by the group. Client appeared to benefit from group support and encouragement. Recommended continued IOP tx to continue to increase overall functioning, improve stress and anxiety management, and promote mood stability. Narrative Note: []
--- NOTE | 2022-08-06 10:15 | BH.SGPN.GN ---
Behaviors/Verbalizations/Mental Status: []Pt alert and oriented, casually dressed and groomed. Eye contact good. Motor activity appropriate. Speech within normal limits. Affect congruent, mood anxious. Thoughts linear, logical, no signs of hallucinations or delusions. Client Response/Progress/Benefit: []Pt was a passive participant during interactive group discussions, but was taking notes. Attentive during psychoeducation on the six types of boundaries. Pt listened attentively as peers contributed to interactive discussion on defining what a boundary is and group identified challenges to setting boundaries. Group discussed barriers of fear of hurting others, not feeling worth the boundary, and risk of losing relationships. Group reviewed the 6 types of boundaries. Benefited from increased awareness and insight on the importance/benefit to setting health boundaries. Pt sat in the front of the room today which was a significant sign of progress as pt self-reported severe anxiety would keep her from this in the past. Will continue IOP tx to improve mood stability, further decrease avoidance, and improve self-compassion. Narrative Note: []
--- NOTE | 2022-08-06 11:20 | BH.SGPN.GN ---
Behaviors/Verbalizations/Mental Status: []Pt alert and oriented, neatly dressed and groomed. Eye contact good. Motor activity appropriate. Speech within normal limits. Affect flat, mood irritable. Thoughts linear, logical, no signs of hallucinations or delusions. Client Response/Progress/Benefit: []Pt passive participant AEB limited contributions to discussion, however did appear to be listening attentively to peers. Pt attentive during psychoeducation on the different boundary styles. Pt identified she has healthy boundaries in most areas of her life. Stated she has more porous boundaries with time boundaries and rigid with emotional boundaries. Pt was given a handout on strategies for healthy boundary setting. Appeared to benefit from increasing insight to boundary setting and the impacts on mental health. Seemed to benefit from increased awareness of boundary styles and strategies to improve setting boundaries. Will continue IOP tx to continue to decrease avoidance behavior, continue to use healthy coping skills, and prevent decompensation.
--- NOTE | 2022-08-07 09:00 | BH.SGPN.GN ---
Behaviors/Verbalizations/Mental Status: [] Pt alert and oriented, neatly dressed and groomed. Eye contact good. Motor activity appropriate. Speech within normal limits. Affect congruent, mood euthymic. Thoughts linear, logical, no signs of hallucinations or delusions. Reviewed pt?s symptom tracker, no risk for suicidal ideation, plan, or intent 08/07/22 Client Response/Progress/Benefit: []Pt responded well to session, attentive and engaged. Pt reports feeling happy this morning as pt continues to see progress in her ability to manage anxiety. Pt shared she recently went into a store she has been avoiding, went for a hike with her dog, and plans to see her grandmother soon. Pt reflected on her reduced avoidance and how facing anxiety-producing things has helped pt overall. Pt's stressor today is that she is having car issues. Pt appeared to benefit from connecting with peers and gaining supportive feedback. Pt will continue IOP tx to promote mood stability, further increase ability to manage anxiety, and reduce negative thinking patterns. Narrative Note: []
--- NOTE | 2022-08-07 15:36 | BH.MDN ---
Multi-Disciplinary Note - Note 45-min Individual Time Started:: 10:40 Date: 08/07/22 Eye Contact:: Good Motor Activity:: Appropriate Appearance:: Casual Speech:: Soft Mood:: Euthymic Affect:: Congruent Thoughts:: Linear, Logical, No evidence of hallucinations/delusions noted Staff Interventions:: thought challenging, CBT techniques, discharge planning, strengths perspective, goal setting Time Stopped:: 11:25
--- NOTE | 2022-08-14 10:15 | BH.SGPN.GN ---
Behaviors/Verbalizations/Mental Status: [] Client alert and oriented, casually dressed and groomed. Eye contact fair. Motor activity appropriate. Speech within normal limits. Affect constricted, mood anxious. Thoughts linear, logical, no signs of hallucinations or delusions. Client Response/Progress/Benefit: [] Client responded session by being attentive and taking notes. Client did not share input or reflect with group. Group identified the benefits of change which included: personal growth, positive perspective, increased confidence and increased autonomy. Worked with the group to identify barriers to change, which included: uncomfortable emotions such as anxiety, lack of awareness, low motivation, negative support system, and negative thinking. Client attentive in activity where they identified and discussed the emotions related to change. Appear to benefit from increased awareness and understanding of emotions, benefits, and barriers related to change. Will continue IOP tx to continue to decrease anxiety, continue use of healthy skills, and prevent decompensation. Behaviors/Verbalizations/Mental Status: [] Client alert and oriented, casually dressed and groomed. Eye contact fair. Motor activity appropriate. Speech within normal limits. Affect constricted, mood anxious. Thoughts linear, logical, no signs of hallucinations or delusions. Client Response/Progress/Benefit: [] Client responded session by being attentive and taking notes. Client did not share input or reflect with group. Group identified the benefits of change which included: personal growth, positive perspective, increased confidence and increased autonomy. Worked with the group to identify barriers to change, which included: uncomfortable emotions such as anxiety, lack of awareness, low motivation, negative support system, and negative thinking. Client attentive in activity where they identified and discussed the emotions related to change. Appear to benefit from increased awareness and understanding of emotions, benefits, and barriers related to change. Will continue IOP tx to continue to decrease anxiety, continue use of healthy skills, and prevent decompensation.
--- NOTE | 2022-08-14 11:15 | BH.SGPN.GN ---
Behaviors/Verbalizations/Mental Status: []Pt alert and oriented, casually dressed and groomed. Eye contact good. Motor activity appropriate. Speech within normal limits. Affect congruent, mood anxious. Thoughts linear, logical, no signs of hallucinations or delusions. Client Response/Progress/Benefit: [] Pt responded well to session, attentive AEB participating in activity and actively engaging in group discussion. Group processed activity to relate the strategies used to overcome barriers in the activity to managing change in own life. Discussed and set SMART goal in group as it relates to change group members are wanting to make. Pt identified change they want as hanging out with friends or family once a week by herself. Identified being in the preparation/action stage but anxiety can keep pt from following through consistently. Pt stated to get to the action stage consistently, she will need to use opposite action and schedule in advance. Appeared to benefit from identifying a small goal to work towards. Pt will continue IOP tx to further increase self-confidence, further reduce avoidance, and reinforce healthy coping skills. Narrative Note: []
--- NOTE | 2022-08-14 11:59 | PCM.BH.PN_ITS ---
Progress Note Progress Note: History of Present Illness/Interim History: The patient is a 27-year-old single female with a history of social of anxiety panic attacks and agoraphobia. She is seen in follow-up at the [facility] behavioral health IOP program and I last saw the patient 3 weeks ago. According to the staff the patient is responding well to therapy using a fair letter and is able to apply the skills. She is having an easier time leaving the house although it is still not which she would call it easy. She states that her panic attacks are less frequent and occur only about once a week now. Her mood is a little better also and her energy level has improved but is still not where she wants it. She has still some trouble getting motivated and accomplishing tasks at home. Energy level is sometimes low. Sleep is okay at 8 hours a night. She denies passive thoughts of , hopelessness, suicidal ideation, homicidal ideation, plan for suicide, hallucinations or delusions. Current Psychiatric Medications: [] Lexapro 20 mg p.o. daily; Wellbutrin SR 75 mg p.o. twice daily; Xanax 0.25 mg p.o. as needed for panic attack (takes this about 4 times a week). Mental Status Examination: [] The patient is a 27-year-old female who appears normal for stated age and is casually dressed and groomed with good hygiene. She is ambulatory with a normal gait and has no psychomotor agitation or retardation. Eye contact is good and speech is normal rate and rhythm and fluent with no pressure. Mood is euthymic but anxious. Affect is constricted. Thought process is goal-directed and organized. Thought content: The patient is hopeful that she can continue to improve her anxiety without making any changes in medications. There is no evidence of passive thoughts of , plan for suicide, suicidal ideation, homicidal ideation, hallucinations or delusions. She remains afraid to leave the house somewhat. Reality testing is intact. Judgment is intact. Insight is fair and improving. Impulsivity is low. Diagnoses: [] 1. Panic disorder 2. Agoraphobia 3. Social anxiety disorder 4. Work and primary support issues Plan: [] The patient will continue the IOP program at [facility] as the structure, support, education and group therapy will hopefully prevent worsening of the patient's symptoms. She felt safe during the interview and if it anytime she does not feel safe she will let us know or go to the emergency room. The risk, options, possible complications and side effects of the medications were again discussed with the patient and she understands and accepts these. The patient again does not wish and refuses to have any of her medications changed or increased as she wants to work on her issues through therapy with the existing medication doses. She will continue to follow-up with her outpatient providers and I will see the patient in follow-up while she is in the IOP program.
--- NOTE | 2022-08-14 15:23 | BH.MDN ---
Multi-Disciplinary Note Note 45-min Individual: Time Started:: 09:05 Date: 08/14/22 Purpose of session/treatment goals addressed:: To work on goal #1 of pt's tx plan by practicing in the moment grounding and distress tolerance skills while working on exposure therapy. Eye Contact:: Good Motor Activity:: Appropriate Appearance:: Casual Speech:: Soft Mood:: Anxious Affect:: Congruent Thoughts:: Linear, Logical and No evidence of hallucinations/delusions noted Staff Interventions:: thought challenging, CBT techniques, mindfulness skills, discharge planning and goal setting Client Response:: Pt responded well to session, open to meeting with therapist. Pt came in to [facility] today with the goal of not taking her Xanax and pt accomplished this goal. Pt reports that first group is the hardest group for pt without her anxiety med, so pt was willing to have session in an empty first group room. Pt reported feeling anxious, but it was more manageable. Pt used positive self-talk and deep breathing on her drive in today. Pt also has been consistently accomplishing goals on her fear ladder such as going into gas stations, ordering food at restaurants, and even talking to people she knows. Pt is anxious and currently avoiding meeting with her grandmother, but pt is willing to set a goal to meet with her in the next two weeks. Pt shared her biggest worry is that pt's grandmother does not know that pt has been struggling with anxiety and pt is anxious to tell her. Pt stated belief that her grandmother would be understanding and supportive, so it would be helpful in combatting negative thinking and stigma if pt communicated this with grandma. Pt receptive to this and pt receptive to continuing to work on attending IOP tx without Xanax which is pt's goal for the rest of the week. Risks/Concerns:: No SI or thoughts of reported. No HI. Progress Toward Goals/Plan:: Pt continues to make progress towards her tx goals AEB her report of ongoing progress with accomplishing goals on her fear ladder, not taking a Xanax today before coming to IOP, and increased self-confidence. Pt feels she still has work to do on reducing her anxiety, but pt's avoidance and anxiety have significantly decreased since IOP admission. Pt still needs an outpatient therapist and can benefit from reinforcing healthy coping skills, so pt will continue with IOP tx for another week. Time Stopped:: 09:55
--- NOTE | 2022-08-15 09:00 | BH.SGPN.GN ---
Behaviors/Verbalizations/Mental Status: [] Eye contact is good. Motor activity is appropriate. Appearance is casual. Speech is Appropriate. Mood is anxious. Affect is congruent. Thoughts are linear and logical. No evidence of psychosis. Reviewed daily check in sheet and no reports of suicidal ideations or intent. Client Response/Progress/Benefit: [] Pt participated at times during the group discussion. Attentive. Emotion for today is anxious. Daily symptom tracker notes 04/21 for anxiety. Mental health win is that she has shown up to IOP for the third day in a row w/o taking a Xanax before showing up. Discussed how she is attempting to utilizing skills learned in IOP rather than medications to manage her anxiety. Admits that this has been very challenging and has impacted her engagement at times. She shared another mental health win regarding setting up a dentist appointment which is another scenario which is anxiety-producing for her. Progress noted per pt report. Continues to work on her 'fear ladder' and exposure to increase confidence and decrease social anxiety. Benefited from group support, encouragement, and feedback. Will continue in IOP to maintain gains, decrease intrusivce thoughts, and improve functioning. Narrative Note: []
--- NOTE | 2022-08-15 10:15 | BH.SGPN.GN ---
Behaviors/Verbalizations/Mental Status: []Pt alert and oriented, casually dressed and groomed. Eye contact good. Motor activity appropriate. Speech within normal limits. Affect congruent, mood anxious. Thoughts linear, logical, no signs of hallucinations or delusions. Client Response/Progress/Benefit: []Pt receptive to session AEB contributing to discussion, as well listening attentively to others, and taking notes. Worked with group to brainstorm the positive and negative aspects of stress on physical and mental health. Group did well to identify the benefits of stress as well as the impact of distress on performance, relationships, and mental health. Pt identified their personal top stressors as: managing her mental health, vehicle issues, and maintaining relationships with friends and family. Pt seemed to benefit from increased awareness of current stressors and impact stress has on mental health. Pt making progress AEB her reduced anxiety, reduced use of Xanax, and improving self-confidence. Recommended to continue IOP tx to promote gains, increase self-confidence, and further reduce anxiety. ? Narrative Note: []
--- NOTE | 2022-08-15 11:15 | BH.SGPN.GN ---
Behaviors/Verbalizations/Mental Status: [] Eye contact is good. Motor activity is appropriate. Appearance is casual. Speech is Appropriate. Mood is anxious and euthymic. Affect is congruent. Thoughts are linear and logical. No evidence of psychosis. Client Response/Progress/Benefit: []Pt was an active participant in group discussions and experiential activity. Attentive during psychoeducation on the 4 A's (Avoid, adapt, alter, accept) of coping with stress as well as strategies to identify stressors in which one has no control, little control, or a great deal of control over. Shared that she would benefit most from working on adapt in regards to coping with stress of managing her anxiety. Was able to identify the connection between the experimental activity and utilization of stress management skills. Benefited from increased awareness of stress management strategies. Will continue in IOP to maintain progress, prevent decompensation, and to increase healthy coping skill application. Narrative Note: []
--- NOTE | 2022-08-16 09:00 | BH.SGPN.GN ---
Behaviors/Verbalizations/Mental Status: [] Eye contact is fair. Motor activity is appropriate. Appearance is casual. Speech is Appropriate. Mood is anxious. Affect is constricted. Thoughts are linear and logical. No evidence of psychosis. Reviewed daily check in sheet and no reports of suicidal ideations or intent. Client Response/Progress/Benefit: [] Pt participated at times during the group discussion. Attentive. Client stated mental positive as working on her fear ladder today by going into a gas station and coming to [facility] without her Xanax. Client noted additional mental positive as completing yard work yesterday. Noted stressor is feeling anxious because she is not on Xanax this morning. Benefited from group support, encouragement, and feedback. Progress noted as client reporting consistently facing her fear ladder and using skills to manage anxious symptoms without needing her Xanax. Will continue in IOP to prevent decompensation, continue use of skills, and challenge negative thoughts.
--- NOTE | 2022-08-16 10:10 | BH.SGPN.GN ---
Behaviors/Verbalizations/Mental Status: [] Eye contact is fair to good. Alert and oriented. Motor activity is appropriate. Appearance is casual. grooming is appropriate. Speech is Appropriate. Mood is dysthymic. Affect is constricted. Thoughts are linear and logical. No evidence of psychosis or hallucinations. Client Response/Progress/Benefit: []Client passive participate AEB providing no contributions, however did appear to listen attentively to others. The group identified the impact of emotions on communication such as change in tone, body language, shutting down, misperceiving the communication, and reassurance seeking. During group activity, client mostly quiet. Client benefited from session by gaining an increased understanding on the importance of managing emotions to improve daily functioning. Client will continue IOP to maintain gains made, improve anxiety management, and prevent decompensation. Narrative Note: []
--- NOTE | 2022-08-16 11:10 | BH.SGPN.GN ---
Behaviors/Verbalizations/Mental Status: []Pt alert and oriented, neatly dressed and groomed. Eye contact good. Motor activity appropriate. Speech within normal limits. Affect congruent, mood euthymic and anxious. Thoughts linear, logical, no signs of hallucinations or delusions. Client Response/Progress/Benefit: [] Pt engaged in session AEB Pt listening attentively to peers and providing input. Attentive during psychoeducation on 4 zones of regulation. Pt able to identify feelings and behaviors for each zone. Pt identified coping skills one can use to support self in each zone. Pt reports belief they are in the ?green? zone today and pt wants to focus on continuing to create goals and work on her fear ladder to help pt in this zone. Progress noted as pt reports feeling more confident and less anxious. Benefited from increased education on zones of regulation or stages of alertness for emotions and healthy coping skills to use for each zone. Will continue IOP tx to promote the use of healthy coping skills, further improve mood stability, and increase self-confidence. Narrative Note: []
== END 2022-08-16 23:59 ==
LOC: BHIOP 07:43
PROVIDERS: PCP Family Medicine; Referring Provider Psychiatry & Neurology Psychiatry; Visit Provider Psychiatry & Neurology Psychiatry
DX: F41.0 Panic disorder [episodic paroxysmal anxiety] (principal); F40.01 Agoraphobia with panic disorder; F10.91 Alcohol use, unspecified, in remission
CPT/HCPCS: 99213; 99214; H2012; H2020; S9480; 90832; 90834

== ENCOUNTER 2022-08-19 07:15 | Outpatient (RCR) | payer MEDICAID, SELFPAY ==
[2022-08-17 01:34] VITALS: BP 112/72; PULSE 71
--- NOTE | 2022-08-22 09:00 | BH.SGPN.GN ---
Behaviors/Verbalizations/Mental Status: []Pt alert and oriented, disheveled appearance, well groomed. Eye contact good. Motor activity appropriate. Speech within normal limits. Affect flat, mood content but tired. Thoughts linear, logical, no signs of hallucinations or delusions. Reviewed pt?s symptom tracker, no risk for suicidal ideation, plan, or intent as 08/22/22 Client Response/Progress/Benefit: []Pt responded well to session, attentive and engaged. Pt reports feeling tired and a little anxious this morning. Pt stated she is feeling nervous about leaving IOP tx and finding a new mental health provider. Group offered her assurance and reminded pt of her strengths. Pt identified several mental health wins which included plans to go kayaking today and looking up potential outpatient therapists. Pt also shared she continues to work on her fear ladder and will keep doing this even after she discharges. Pt will continue IOP tx for one more day to reinforce healthy coping skills and establish aftercare. Narrative Note: []
--- NOTE | 2022-08-22 10:15 | BH.SGPN.GN ---
Behaviors/Verbalizations/Mental Status: []Client alert and oriented, casual dress, hygiene tended to. Eye contact fair. Motor activity appropriate. Speech within normal limits. Affect constricted, mood anxious. Thoughts linear, logical, no signs of hallucinations or delusions. Client Response/Progress/Benefit: []Client responded well to session, attentive to discussions, taking notes. Did not provide input throughout group discussions. Client worked cooperatively with the group to identify factors that contributed to how we define ourselves which included: upbringing, societal expectations, labels, failures, trauma, shame/guilt, others opinions, and diagnosis. Attentive during group discussion about social and perceived stigma. Client seemed to benefit from increased awareness of how mental health stigma can impact progress and self-worth. Client to continue IOP tx to promote gains, continue to work on fear ladder, and use healthy coping skills.
--- NOTE | 2022-08-22 11:16 | BH.SGPN.GN ---
Behaviors/Verbalizations/Mental Status: []Client alert and oriented, casually dressed and groomed. Eye contact good. Motor activity appropriate. Speech within normal limits. Affect constricted, mood anxious and dysthymic. Thoughts linear, logical, no signs of hallucinations or delusions. Client Response/Progress/Benefit:?[]Client engaged participant AEB client participating in the activity, providing some input during small group discussion, and listening attentively to others. Client appeared to connect with discussion in the benefits of addressing mental health stigma which included: improved relationships, validation, increased happiness, and improved confidence. Group brainstormed strategies to combat social and perceived stigma. ?Client shared one thing she can personally do to combat stigma is to challenge herself to look at the evidence against the stigmatizing language and labels she is feeding into when struggling. Appeared to benefit from increasing awareness of strategies to combat stigma. Will continue IOP tx to continue to reduce anxiety, improve consistent skill application and prevent decompensation. Narrative Note: []
--- NOTE | 2022-08-23 09:00 | BH.SGPN.GN ---
Behaviors/Verbalizations/Mental Status: [] Eye contact is good. Motor activity is appropriate. Appearance is casual. Speech is Appropriate. Mood is anxious. Affect is congruent. Thoughts are linear and logical. No evidence of psychosis. Reviewed daily check in sheet and no reports of suicidal ideations or intent. Client Response/Progress/Benefit: [] Pt participated when prompted. Attentive. Daily symptom tracker notes 04/21 for anxiety. Able to identify mental health wins which included hanging out with friend. Increased socialization and decreased isolation since entering the program. Shared with the group that today is her last day in [facility] level of care. She briefly shared her progress and reports that she benefited most from the psychoeducation groups specifically on anxiety. Overall improved functioning, decreased isolation, and is able to participated in social events. Progress noted. Benefited from group support and praise. Will be discharged from [facility] today. Narrative Note: []
--- NOTE | 2022-08-23 09:12 | BH.IGGP_ITS ---
Aftercare Plan Demographics Treatment End Date:: 08/23/22 Psychiatrist:: Marce Ma Psychiatrist Office #:: [phone] [facility] Therapist:: Meka Mejia Therapist Phone #:: [phone] Medications Home Medications alprazolam 0.25 mg tablet (Xanax) 0.25 mg PO QHS PRN Anxiety 04/18/22 escitalopram oxalate 20 mg tablet (Lexapro) 20 mg PO DAILY 04/18/22 bupropion HCl 75 mg tablet 75 mg PO BID 07/03/22 Plan Details Progress/Aftercare Plan Details:: Mathew has responded well to treatment as evidenced by Mathew consistently attending IOP sessions and his reduction of DSM-5 scores since admission. Mathew was always attentive and receptive to learning during group and individual sessions. Mathew actively applied coping skills outside of IOP, reports overall her mood is improved, and she is functioning better than she was several months ago. Mathew?s overall symptom reduction is 63% since admission with anger decreasing by 100%, depression decreasing by 50%, and anxiety decreasing by 67%. Mathew has increased self- confidence in her ability to manage anxiety overcoming fears. Mathew did well with the fear ladder and has significantly improved her social functioning and reduced avoidance. Mathew will continue seeing her psychiatrist through [facility] and has been referred to [id number] for individual counseling. Strategies for Success:: 1. Opposite action! Continue to break that cycle of anxiety and depression by not letting emotions be the only drivers of your bu s. 2. Remember that thoughts are thoughts NOT facts! You have power in if you give thoughts the time of day or not. 3. self-care! You deserve to take time for you and you also deserve to face the not so fun self-care like sitting with the uncomfortable 4. Self-compassion! You are human and you will make a mistake?BUT that doesn?t mean you are a failure or not good enough. Give yourself credit for all the wonderful things you do. 5. continue working on your fear ladder! You have done so well with it. 6. Practice positive self-talk and keep track of your wins. 7. Remember progress isn?t linear! You may have a setback or bump in the road, but that doesn?t mean you?ve lost all progress. 8. self-reflection and self-awareness. 9. Delay, Distract, Decide 10. Live in the [place]!! Appointments Appointments/Referrals to Other Services:: 1. [id number] referral for outpatient counseling. 2. Dr. Viveros for medication management. Next appointment is in Se ptember. 3. IOP aftercare (if preferred) starting on 08/29/22 from 2:00-3:30pm for up to 8 weeks.
--- NOTE | 2022-08-23 10:10 | BH.SGPN.GN ---
Behaviors/Verbalizations/Mental Status: []Client alert and oriented, casually dressed and groomed. Eye contact good. Motor activity appropriate. Speech within normal limits. Affect congruent, mood anxious, euthymic. Thoughts linear, logical, no signs of hallucinations or delusions. Client Response/Progress/Benefit: []Client receptive to session AEB providing input throughout, listening attentively to others, and taking notes. Attentive throughout psychoeducation on the cognitive triangle and maintenance cycles. Engaged in group discussion reviewing the impact of daily activities and behaviors in either reinforcing unhealthy maintenance cycles and depression or assisting in reducing symptoms (?down? vs ?up? activities). Client identified common ?down? activities they engage in as: staying inside, avoiding self-care, avoiding being active, and not doing chores. Common ?Up? activities client identified included: hiking, walking dog, getting outside near water, camping, and art. Appeared to benefit from increased awareness of current behaviors and impact these have on mental health. Pt has made significant treatment progress and will discharge from [facility] today.
--- NOTE | 2022-08-23 11:15 | BH.SGPN.GN ---
Behaviors/Verbalizations/Mental Status: []Pt alert and oriented, neatly dressed and groomed. Eye contact good. Motor activity appropriate. Speech within normal limits. Affect congruent, mood euthymic. Thoughts linear, logical, no signs of hallucinations or delusions. Client Response/Progress/Benefit: []Pt responded well to session, attentive and engaged in activity. Group shared having patience and being willing to re-evaluate helped the group be success. Group discussed values and the benefits that knowing one's values can have on one's mental health. These included: increasing motivation, resolved cognitive dissonance, and less stress. Pt explored own values and identified physical wellbeing and hobbies as their top two values. Pt set a goal to go on a walk twice a week and limit pop to once a week to live according to values. Pt appeared to benefit from exploring values and creating a weekly goal. Pt will discharge from IOP tx as pt has made significant progress and no longer meets criteria for IOP level of care. Narrative Note: []
--- NOTE | 2022-08-23 14:10 | BH.DS_ITS ---
Discharge Summary Demographics Date of Admission:: 07/02/22 Discharge Date: 08/23/22 Presenting Problems at Admission:: Pt is a 27-year-old female with a history of panic disorder and agoraphobia who was referred to [facility] tx by her medical collector at [facility]. Pt reports severe anxiety and agoraphobia for the past two years. Pt has been unable to work, go to social events with friends and family, and she barely leaves her house. Pt endorses panic attacks, fear of panic attacks, social anxiety, avoidance, ruminations, poor sleep, racing thoughts, and isolation. Discharge Diagnoses:: Panic disorder F 41.0; Agoraphobia; Social anxiety disorder Reason for Discharge:: Pt has accomplished her tx goals AEB pt's overall reduction of DSM-5 scores and self-report of improved functioning. Pt no longer meets criteria for [facility] level of care and will discharge to outpatient counseling. Treatment Progress During Treatment & Response: Pt has responded well to treatment as evidenced by Pt consistently attending IOP sessions and his reduction of DSM-5 scores since admission. Pt was always attentive and receptive to learning during group and individual sessions. Pt actively applied coping skills outside of [facility], reports overall her mood is improved, and she is functioning better than she was several months ago. Pt?s overall symptom reduction is 63% since admission with anger decreasing by 100%, depression decreasing by 50%, and anxiety decreasing by 67%. Pt has increased self-confidence in her ability to manage anxiety overcoming fears. Pt did well with the fear ladder and has significantly improved her social functioning and reduced avoidance. Pt will continue seeing her psychiatrist through [facility] and has been referred to [place] [id number] for individual counseling. Issues Still to be Addressed:: Improving work-related functioning, further increasing self-confidence, reducing negative self-talk, and further reducing avoidance caused by anxiety. Additionally, pt has mentioned issues with lack of motivation, fatigue, and lack of energy that could be medication related. Discharge Recommendations/Instructions:: Pt was referred to [place] [id number] for individual counseling and pt is working on completing the intake paperwork. Pt has a psychiatrist through [facility], Dr. Viveros, and pt sees her again in October. Pt will start [facility] aftercare group on 08/29/22 on a trial basis to see if pt finds benefit. Discharge Handout
--- NOTE | 2022-08-23 14:10 | BH.MDN ---
Multi-Disciplinary Note Note 30-min Individual: Time Started:: 12:05 Date: 08/23/22 Purpose of session/treatment goals addressed:: To address current stressors and discuss strategies to help cope with these stressors. Another goal was to discuss discharge and aftercare. Eye Contact:: Good Motor Activity:: Appropriate Appearance:: Neat Speech:: Appropriate Mood:: Euthymic and Anxious Affect:: Congruent Thoughts:: Linear, Logical and No evidence of hallucinations/delusions noted Staff Interventions:: discharge planning, strengths perspective and reviewed DSM-5 Client Response:: Pt responded well to session, open to meeting with therapist. Pt reflected on her progress and reviewed her DSM-5 scores. Pt shared she still has work to do, but she notices how much her functioning and mood have improved. Pt stated she will continue to work on creating fear ladders to further improve her functioning and confidence. Pt stated her anxiety has decreased so much that I almost get embarrassed by how bad it was. Pt identified strategies to keep pt well and discussed aftercare options. Pt is hesitant, but willing to try [facility] aftercare group and pt is also receptive to filling out paperwork for new pts at [place] [id number]. Pt appeared to benefit from reflecting on her progress and growth over the past six weeks. Risks/Concerns:: No SI or thoughts of . Progress Toward Goals/Plan:: Pt has responded well to treatment as evidenced by Pt consistently attending IOP sessions and his reduction of DSM-5 scores since admission. Pt was always attentive and receptive to learning during group and individual sessions. Pt actively applied coping skills outside of [facility], reports overall her mood is improved, and she is functioning better than she was several months ago. Pt?s overall symptom reduction is 63% since admission with anger decreasing by 100%, depression decreasing by 50%, and anxiety decreasing by 67%. Pt has increased self-confidence in her ability to manage anxiety overcoming fears. Pt will discharge from [facility] tx today. Time Stopped:: 12:25
== END 2022-08-23 12:36 | disposition home or self-care (01) ==
LOC: BHIOP 07:15
PROVIDERS: PCP Family Medicine; Referring Provider Psychiatry & Neurology Psychiatry; Visit Provider Psychiatry & Neurology Psychiatry
DX: F41.0 Panic disorder [episodic paroxysmal anxiety] (principal); F41.9 Anxiety disorder, unspecified
CPT/HCPCS: H2020; S9480; 90832

== ENCOUNTER 2022-09-05 14:19 | Outpatient (RCR) | payer MEDICAID, SELFPAY ==
--- NOTE | 2022-09-05 14:00 | BH.SGPN.GN ---
Behaviors/Verbalizations/Mental Status: []Pt alert and oriented, neatly dressed and groomed. Eye contact good. Motor activity appropriate. Speech within normal limits. Affect congruent, mood euthymic and anxious. Thoughts linear, logical, no signs of hallucinations or delusions. Client Response/Progress/Benefit: []Pt responded well to session, attentive and engaged. Pt reports she has been taking her medications consistently, but she did not have appointments with a counselor or psychiatrist this week. Pt states she has been using sitting with the uncomfortable, deep breathing, and setting goals for her fear ladder to promote gains made in IOP. Pt receptive to discussion and reading of the Chapters of My Life handout. Pt able to connect with the chapters and stated belief she is in chapter 4 which means pt is changing old, unhelpful behaviors, but sometimes still struggles with avoidance and negative thinking. Pt shared to keep moving forward, she wants to remind herself to use opposite action. Pt appeared to benefit from connecting with peers and reflecting on her application of coping skills. Pt will continue IOP aftercare to promote gains made in IOP and reinforce healthy coping skills. Narrative Note: []
--- NOTE | 2022-09-05 14:22 | BH.COMM ---
Communication Note Communication with Client Communication Note: Patient completed IOP and presents today to start relapse prevention group which meets once weekly (1.5 hours) for 8 weeks. Case discussed with Dr. Fontanez with plan to admit with dx of F41.0
--- NOTE | 2022-09-05 15:33 | BH.MTP_ITS ---
Master Treatment Plan Patient Information Program Physician:: Dr. Fontanez Primary Therapist:: Ila Hahn [facility] Psychiatric Diagnoses Psychiatric Diagnoses:: Panic disorder F 41.0; Agoraphobia; Social anxiety disorder Diagnosis Code(s):: F41.0 Estimated LOS Estimated LOS (in weeks):: 8 Problem/Goal #1 Problem/Goal #1 Stated Goal:: client will maintain or see a reduction in symptoms AEB client score on the DSM 5 cross-cutting measure and improve client's daily functioning. Objectives Objective #1: Stated Objective: Client will continue to consistently apply healthy coping skills to maintain progress made in IOP tx. Interventions: Through group therapy, client will review warning signs and triggers as well as healthy coping skills learned in IOP tx to successfully maintain gains while transitioning into outpatient therapy. Discharge Criteria: Client will have accomplished this goal when client's score on the DSM-5 cross-cutting measure has maintained or reduced over a 8 week period. Target Date: 10/31/22 Review Date: 10/03/22 Objective #2: Stated Objective: Client will learn and utilize 2-3 maintenance strategies to prevent decompensation from original IOP DSM-5 scores. Interventions: Through group therapy, client will be provided with education on healthy maintenance behaviors, relapse prevention techniques, and healthy coping strategies. Discharge Criteria: Client will have accomplished this goal when can report using at least 2 maintenance skills to prevent decompensation compared to original IOP DSM-5 scores Target Date: 10/31/22 Review Date: 10/03/22
--- NOTE | 2022-09-12 14:00 | BH.SGPN.GN ---
Behaviors/Verbalizations/Mental Status: []Pt alert and oriented, neatly dressed and groomed. Eye contact good. Motor activity appropriate. Speech within normal limits. Affect congruent, mood euthymic. Thoughts linear, logical, no signs of hallucinations or delusions. Client Response/Progress/Benefit: [] Pt receptive of session, engaged throughout. Pt reports she is consistent with medications but she still has not seen a therapist as pt is waiting to get scheduled. Pt reports getting out in nature, working on her fear ladder, and breathing helped with recent stressors. ?Receptive of discussion on personal accountability and its importance in maintaining mental health stability. Engaged in brainstorming strategies for improving ability to hold themselves accountable. Reported wanting to work on looking for a job this week by researching different jobs online. Pt shared she is dialogue driven, so asking her boyfriend to remind pt will hold her accountable. Pt seemed to benefit from support from peers and increasing understanding of personal accountability benefits and strategies. Will continue IOP aftercare group to maintain gains and prevent decompensation. Narrative Note: []
== END 2022-09-16 23:59 ==
LOC: BHOG 14:19
PROVIDERS: PCP Family Medicine; Referring Provider Psychiatry & Neurology Psychiatry; Visit Provider Psychiatry & Neurology Psychiatry
DX: F41.0 Panic disorder [episodic paroxysmal anxiety] (principal); F40.01 Agoraphobia with panic disorder; F41.8 Other specified anxiety disorders
CPT/HCPCS: 90853

== ENCOUNTER → 2022-09-12 | Outpatient (CLI) | payer MEDICAID, SELFPAY ==
[2022-09-12 17:17] LABS: Prolactin 22.9 ng/mL
== END | disposition home or self-care (01) ==
LOC: LAB 15:27
PROVIDERS: Nurse Practitioner Family; PCP Family Medicine; Referring Provider Internal Medicine Endocrinology, Diabetes & Metabolism; Visit Provider Internal Medicine Endocrinology, Diabetes & Metabolism
DX: E22.1 Hyperprolactinemia (principal)
CPT/HCPCS: 36415; 84146

== ENCOUNTER 2022-09-17 07:14 | Outpatient (RCR) | payer MEDICAID, SELFPAY ==
--- NOTE | 2022-09-26 14:00 | BH.SGPN.GN ---
Behaviors/Verbalizations/Mental Status: []Client alert and oriented, casually dressed and groomed. Eye contact fair to good. Motor activity appropriate. Speech within normal limits. Affect congruent, mood dysthymic and anxious. Thoughts linear, logical, no signs of hallucinations or delusions. Client Response/Progress/Benefit: []Receptive of session, engaged throughout. Pt reports she is continuing to work on finding an outpatient counselor and has been maintaining medication compliance. Noted use of positive self-talk, opposite action, and small exposure goals as coping skills aiding in ongoing mental health maintenance. Engaged and attentive during discussion of vulnerability and benefits of practicing vulnerability. Shared being vulnerable has not been easy for her as she struggles with uncomfortable feelings and fear of embarrassment. Group discussed ways we avoid feeling vulnerable and how this negatively affects mental health and relationships. Appeared to benefit from group support and discussion reflecting on the positive impact vulnerability can have on mental health. Identified plans to challenge herself to go to the park and watch the sunset by herself as a way in which she could practice being vulnerable in the next week. Pt will continue with aftercare tx to maintain gains and prevent decompensation. Narrative Note: []
--- NOTE | 2022-09-26 16:26 | BH.TPR ---
Treatment Plan Review Demographics Date of Admission:: 09/05/22 Date of Treatment Plan Review:: 09/26/22 Admitting Diagnoses:: Panic disorder F 41.0; Agoraphobia; Social anxiety disorder Current Diagnoses:: Panic disorder F 41.0; Agoraphobia; Social anxiety disorder Patient Status Patient's Response to Treatment:: Pt continues to respond well to treatment AEB pt's consistent attendance, ongoing attentiveness and engagement in group discussions, and continued reporting use of skills outside treatment environment. Pt's symptoms are down an additional 47% since IOP admission. Status of Current Problems and Symptoms: Per pt's DSM-5, pt is still experiencing depressive symptoms, feeling nervous/on edge more than half the days, and having issues with sleep. Pt's avoidance is much less, but pt still has not felt ready to apply for jobs. Progress Problem #1: Problem Name:: Pt will maintain or see a reduction in sx Status of Goals:: Obj 1 - complete with ongoing work encouraged. Pt's DSM 5 scores for anxiety have decreased by 42% since IOP admission. Pt reports actively using healthy coping skills. Obj 2 - complete with ongoing work encouraged. Pt had been reporting using opposite action, working on her fear ladder, and spending a lot more time with friends. Team Recommendations:: Recommended client continue IOP aftercare group in addition to attending regular outpatient counseling in order to maintain gains. Pt also recommended to continue working on her fear ladder which has been helping pt reduce avoidance caused by anxiety.
== END 2022-10-17 23:59 ==
LOC: BHOG 07:14
PROVIDERS: PCP Family Medicine; Referring Provider Psychiatry & Neurology Psychiatry; Visit Provider Psychiatry & Neurology Psychiatry
DX: F41.0 Panic disorder [episodic paroxysmal anxiety] (principal); F41.8 Other specified anxiety disorders
CPT/HCPCS: 90853

== ENCOUNTER 2022-10-18 08:07 | Outpatient (RCR) | payer MEDICAID, SELFPAY ==
--- NOTE | 2022-10-24 14:00 | BH.SGPN.GN ---
Behaviors/Verbalizations/Mental Status: []Pt alert and oriented, neatly dressed and groomed. Eye contact good. Motor activity appropriate. Speech within normal limits. Affect congruent, mood euthymic. Thoughts linear, logical, no signs of hallucinations or delusions. Client Response/Progress/Benefit: []Pt receptive of session, engaged throughout. Pt shared she met with all her outpatient providers since last session. Pt has been taking she medications consistently and she reports utilizing healthy coping skills outside of aftercare. These skills included: breathing, opposite action, using positive affirmations, and continuing to work on her fear ladder. Receptive of discussion on sitting with the uncomfortable and emotional urges. Pt contributed to the discussion of distress tolerance and how building distress tolerance can help improve mood stability and resilience. Pt shared she wants to keep building distress tolerance by going into stores and walking out without buying anything. Pt seemed to benefit from support from peers and increasing understanding of distress tolerance. Will discharge from [facility] aftercare as pt has successfully completed the 8 week program and accomplished her tx goals. Narrative Note: []
--- NOTE | 2022-10-24 16:13 | BH.DS_ITS ---
Discharge Summary Demographics Date of Admission:: 09/05/22 Discharge Date: 10/24/22 Presenting Problems at Admission:: Pt discharged from IOP tx and transitioned to IOP aftercare to maintain gains pt made in IOP and to reinforce healthy coping skills. At admission to IOP aftercare, pt continued to report symptoms of depression, anxiety, and panic but of reduced intensity and frequency. Pt also was experiencing stress from not not working and pt was in the process of weanin g off Xanax. Discharge Diagnoses:: Panic disorder F 41.0; Agoraphobia; Social anxiety disorder Reason for Discharge:: Pt has accomplished tx goals AEB ability to maintain mood stability and gains made in IOP. Pt's DSM-5 scores decreased by an additional 73% from IOP admission. Pt will transition to traditional outpatient counseling. Treatment Progress During Treatment & Response: Pt responded well and made progress in IOP aftercare as evidenced by pt's participation in group discussions and self- report of consistently applying coping skills. Pt's overall DSM-5 scores decreased by 73% from IOP admission. Pt?s depression decreased by 75% since original IOP admission, pt's scores for anxiety decreased by 67%, and anger decreased by 100% compared to original IOP scores. Additionally, at discharge Pt was reporting consistently using healthy coping skills, working on their fear ladder goals, and practicing affirmations. Pt also reported increased ability to manage anxiety significantly less avoidance. Issues Still to be Addressed:: Pt can benefit from continuing to work on reducing avoidance, gaining self-confidence, and building healthy supports. Pt's goal is to get back into the work force and pt can benefit from continuing to work on her exposure goals which will help pt find a job. Discharge Recommendations/Instructions:: Pt will continue to see Dr. Viveros for medication management. Pt recently had an appointment on 10/20/22. Pt will also follow up with [facility] for individual counseling. Pt started seeing a therapist last month and most recently saw her therapist last week. Pt will continue seeing her on a biweekly basis. Discharge Handout
== END 2022-10-25 06:30 | disposition home or self-care (01) ==
LOC: BHOG 08:07
PROVIDERS: PCP Family Medicine; Referring Provider Psychiatry & Neurology Psychiatry; Visit Provider Psychiatry & Neurology Psychiatry
DX: F41.0 Panic disorder [episodic paroxysmal anxiety] (principal); F41.8 Other specified anxiety disorders
CPT/HCPCS: 90853

== ENCOUNTER → 2022-11-06 | Outpatient (CLI) | payer MEDICAID, SELFPAY ==
[2022-11-06 16:59] LABS: Hematocrit 43.7 % (37-47); Hemoglobin 14.5 g/dL (12.0-15.0); Mean Corp Hgb Conc 33.2 g/dL (32-36); Mean Corpuscular Volume 90.3 fL (81-99); Mean Platelet Vol. 9.9 fl (6.2-12.0); Platelet Count 296 K/mm3 (150-450); RBC Distribution Width CV 12.6 % (11.6-14.6); RBC Distribution Width SD 41.5 fl (35.1-43.9); RET-HE 32.9 pg (30-35); Red Blood Count 4.84 M/mm3 (4.2-5.4); Reticulocyte Count 1.39 % (0.5-1.5); White Blood Count 8.6 K/mm3 (4.4-11.0)
[2022-11-06 17:27] LABS: Vitamin B12 720 pg/mL (211-911); Vitamin D,25 Hydroxy 60.5 ng/mL
[2022-11-06 19:06] LABS: ALB/GLOB Ratio 1.1 RATIO (0.9-2.4); AST(SGOT) 16 U/L (15-37); Alanine Aminotransfer ALT/SGPT 21 U/L (13-56); Albumin, Serum 3.9 g/dL (3.2-5.0); Alkaline Phosphatase 57 U/L (45-117); Anion Gap 3 (5-15); BUN 17 mg/dL (7-18); BUN/Creat Ratio 22.9 RATIO (10-20); Calcium,Total 9.3 mg/dL (8.5-10.1); Chloride 103 mmol/L (98-107); Creatinine, Serum 0.74 mg/dL (0.55-1.02); EST Glomerular Filtration Rate 99 mL/min (>60); Est Glom Filt Rate - Afr Amer 120 mL/min (>60); Ferritin 74 ng/mL (8-252); Globulin 3.7 g/dL (2.2-4.2); Glucose 108 mg/dL (74-106); Iron 108 ug/dL (50-170); Iron Binding Capacity,Total 347 ug/dL (250-450); PERCENT IRON SATURATION 31.1 % (15.0-55.0); Potassium 4.3 mmol/L (3.5-5.1); Prolactin 20.2 ng/mL; Protein, Total 7.6 g/dL (6.4-8.2); Sodium Level 137 mmol/L (136-145); Thyroid Stim Hormone (TSH) 0.83 uIU/mL (0.358-3.74)
[2022-11-07 08:20] LABS: PTHIN 30.8 pg/mL (18.4-80.1)
== END | disposition home or self-care (01) ==
LOC: LAB 16:31
PROVIDERS: PCP Nurse Practitioner Family; Referring Provider Nurse Practitioner Family; Visit Provider Nurse Practitioner Family
DX: R53.82 Chronic fatigue, unspecified (principal); D35.2 Benign neoplasm of pituitary gland; R63.6 Underweight
CPT/HCPCS: 36415; 80053; 82306; 82607; 82728; 83540; 83550; 83970; 84146; 84443; 85027; 85045

== ENCOUNTER 2023-03-21 20:42 | Emergency (ER) | payer MEDICAID, SELFPAY ==
[2023-03-21 20:43] VITALS: BP 123/95; PULSE 84; RESP 14; TEMP 35.9; O2SAT 99; BMI 20.2
--- NOTE | 2023-03-21 21:01 | EDS_ITS ---
HPI History of Present Illness Chief Complaint: Dental Narrative Narrative: Patient is a 28-year-old female with no significant history presents to the emergency department left-sided jaw swelling. Patient stated started yesterday, she today this morning had left sided wisdom teeth removal. Patient states today she is more swollen, is here for evaluation. She is concerned she has some sort of infection. She denies any fever chills nausea or vomiting. [facility] Medical History Agoraphobia Panic disorder Social anxiety disorder Home Medications alprazolam 0.25 mg tablet (Xanax) 0.25 mg PO QHS PRN Anxiety 04/18/22 [History Last Taken Unknown] escitalopram oxalate 20 mg tablet (Lexapro) 20 mg PO DAILY 04/18/22 [History Last Taken Unknown] bupropion HCl 75 mg tablet 75 mg PO BID 07/03/22 [History Last Taken Unknown] Allergy/AdvReac Type Severity Reaction Status Date / Time bee venom protein (honey bee) Allergy Hives Verified 03/21/23 20:43 Family History Grandfather Myocardial infarction Surgical History History of tonsillectomy Social History Smoking Status: Never smoker alcohol intake: current details: occasionally substance use type: does not use caffeine: Yes what type of physical activity do you participate in: none seatbelt use: always do you feel safe at home: Yes additional social history: 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 Positive for left- sided jaw swelling Cardiovascular: Negative for any chest pain, tightness, palpitations Respiratory: Negative for any cough, sputum production, hemoptysis, dyspnea, dyspnea on exertion, orthopnea Gastrointestinal: Negative for any abdominal pain, nausea, vomiting, diarrhea, constipation, blood in stool, blood in vomit : Negative for any urinary frequency, dysuria, retention, blood in urine Muscle skeletal: Negative for any myalgias, arthralgias, neck pain, back pain Neurological: Negative for any headache, syncope, paresthesias, dizziness Skin: Negative for any rashes, lumps, itching, abrasions, lacerations Psychiatric: Negative for any depression, anxiety, stress, suicidal ideation, homicidal ideation Hematologic: Negative for any easy bruising, excessive bruising, easy bleeding Allergies: Negative for any eczema, hives, rash EXAM Physical Exam Narrative Exam Narrative: Vital signs reviewed. HEET: Head normocephalic atraumatic, TMs clear bilaterally. Posterior pharynx is clear, moist mucous membranes. Nares clear bilaterally. Patient does have s ome swelling to the left lower jaw, internal exam, to the back of the left lower jaw, there is obvious trauma from where the wisdom tooth was extracted. Patient has no trismus. There is no erythema, there is no abscess formation Neck: Supple with no lymphadenopathy or tenderness. No signs of meningismus. Cardiac: Regular rate and rhythm no murmurs gallops or rubs, equal peripheral pulses bilaterally. Respiratory: Lungs clear to auscultation bilaterally. No chest tenderness. Abdomen: Soft, nontender, nondistended. No abdominal bruit or pulsatile masses. No hepatosplenomegaly Extremities: No peripheral edema, no signs of gross trauma or deformity. Active full range of motion of all extremities. Neuro: Cranial nerves II through XII intact, no focal neurological deficits. Skin: Clean dry and intact with no rash, purpura, petechiae, vesicles or pustules. Backs/flank: No CVA tenderness, no midline spinal tenderness, no deformity. Psych: Normal mood and affect. No SI, HI or acute psychosis. Const Vital Signs: 03/21/23 20:43 Temperature 96.7 F L Temperature Source Temporal Pulse Rate 84 Respiratory Rate 14 Blood Pressure 123/95 H Blood Pressure Mean 104 Pulse Ox 99 Oxygen Delivery Method Room Air [facility] Treatment and Re-Evaluation :: Patient appears generally well, patient appears nontoxic, vital signs are stable. Presenting to the emergency department with complaints of left lower jaw pain. Patient had a wisdom tooth extraction today at 9 AM, and she is concerned with the swelling. She is currently on amoxicillin. Differential di agnose include dental abscess, strep throat, peritonsillar abscess, postsurgical swelling. At this time, there is no evidence of any deep tissue infection, no evidence of any Ludwigs Angina. Patient will continue her amoxicillin, I did tell her that she needs to ice. She is happy the plan of care, she will follow-up outpatient, patient stable for discharge. Discharge Plan Triage Chief Complaint: Dental ED Midlevel Provider: Rickey Ramirez ED Provider: Nohemi Grodon Dx/Rx/DC Orders Clinical Impression: H/O wisdom tooth extraction, Dental infection Instructions: ED Dental Abscess Prescriptions: No Action escitalopram oxalate [Lexapro] 20 mg tablet 20 mg PO DAILY alprazolam [Xanax] 0.25 mg tablet 0.25 mg PO QHS PRN (Reason: Anxiety) bupropion HCl [Wellbutrin] 75 mg Tablet 75 mg PO BID Primary Care Provider: Baltazar Trevino [employer] Referrals: Baltazar Trevino NP, [employer]-[facility] [Primary Care Provider] - Activity Restrictions/Additional Instructions: Continue taking antibiotics, ibuprofen, Ensure that you ice, that will decrease most of the swelling. Disposition Disposition: Home, Self Care
--- OUTSIDE RECORDS SUMMARY | 2023-03-21 21:07 | XMS RPT_ITS | CCD ---
Author Name Unknown Address [address] [place] [address] Organization [facility] Care Team Providers Care Educational Administrator Name Role Phone MADIHA FAROOQ Admitting Unavailable MADIHA FAROOQ Attending Unavailable MADIHA FAROOQ Primary Care Unavailable Shreya FUNES, Kyleigh Lutz Primary Care Provider [phone] Shreya FUNES, Kyleigh Lutz Primary Care Provider Shreya FUNES, Kyleigh Lutz Primary Care Provider Shreya FUNES, Kyleigh Lutz Primary Care Provider [phone] T[facility] COPELAND - HOME HEALTH RN, ALLIE Beckford Primary Care Phys [facility] KYLEIGH CASH Primary Care Unavailable SARA HERNANDEZ Attending Unavailable SHREYA, KYLEIGH A Primary Care Unavailable SARA HERNANDEZ Attending Unavailable GEENA CASHREY A Primary Care Unavailable SHREYAGEENA PARKREY A Primary Care Unavailable SHREYA, KYLEIGH A Primary Care Unavailable SHREYA KYLEIGH A Primary Care Unavailable SARA HERNANDEZ Referring Unavailable SHREYA, KYLEIGH A Primary Care Unavailable SARA HERNANDEZ Referring Unavailable SHREYA, KYLEIGH A Primary Care Unavailable SARA HERNANDEZ Referring Unavailable SHREYA, KYLEIGH A Primary Care Unavailable SARA HERNANDEZ Attending Unavailable KYLEIGH CASH A Primary Care Unavailable SARA HERNANDEZ Attending Unavailable SHREYA, KYLEIGH A Primary Care Unavailable SARA HERNANDEZ Attending Unavailable SHREYA KYLEIGH A Primary Care Unavailable SARA HERNANDEZ Attending Unavailable SHREYA, KYLEIGH A Primary Care Unavailable SARA HERNANDEZ Attending Unavailable Allergies Allergy Classification Reported Allergen(s) Allergy Type Date of Onset Reaction(s) Facility (18 sources) Bees; Translations: [BEES] Allergy to substance 06-03-2018 Anaphylaxis [facility] Medications Current Medications Medication Drug Class(es) Dates Sig (Normalized) Sig (Original) ALPRAZolam 0.25 mg oral tablet (9 sources) Benzodiazepine Start: 01-22-2023 End: 02-21-2023 take 1 tablet by mouth once daily as needed ALPRAZolam (XANAX) 0.25 mg tablet Indications: Panic disorder with agoraphobia Take 1 tablet by mouth once daily as needed (panic symptoms) for up to 30 days. 30 tablet 0 01/22/2023 02/21/2023 Active Completed/Discontinued Medications Medication Drug Class(es) Dates Sig (Normalized) Sig (Original) busPIRone hydrochloride 5 mg oral tablet (6 sources) Start: 12-18-2020 End: 08-22-2021 take 1 tablet by mouth twice daily busPIRone (BUSPAR) 5 mg tablet Take 1 tablet by mouth twice daily. 60 tablet 5 08/22/2021 Active Problems Active Problems Problem Classification Problem Date Documented Da te Episodic/Chronic Adjustment disorders (18 sources) Adjustment disorder with anxious mood; Translations: [Adjustment disorder with anxiety] Onset: 01-12-2016 06-13-2020 Chronic Anxiety disorders (20 sources) Panic disorder without agoraphobia; Translations: [Panic disorder [episodic paroxysmal anxiety]] Onset: 01-12-2016 06-13-2020 Chronic Disorders of teeth and jaw (1 source) Infection of tooth; Translations: [Periapical abscess without sinus] 08-26-2022 Episodic Immunizations and screening for infectious disease (3 sources) Encounter for screening for other viral diseases; Translations: [Encounter for screening for other viral diseases] Onset: 12-11-2019 Episodic Malaise and fatigue (1 source) Fatigue 10-24-2022 Episodic Miscellaneous mental health disorders (1 source) 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 10-24-2022 Chronic Mood disorders (6 sources) Recurrent major depression in partial remission; Translations: [Major depressive disorder, recurrent, in partial remission] Onset: 12-18-2022 12-18-2022 Chronic Mycoses (1 source) Pityriasis versicolor; Translations: [Pityriasis versicolor] Episodic Other aftercare (1 source) Patient encounter status; Translations: [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] Episodic Other and unspecified benign neoplasm (1 source) 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 Episodic Past or Other Problems Problem Classification Problem Date Documented Da te Episodic/Chronic Neoplasms of unspecified nature or uncertain behavior (18 sources) Neoplasm of pituitary gland; Translations: [Neoplasm of unspecified behavior of endocrine glands and other parts of nervous system] Onset: 12-18-2020 12-18-2020 Episodic Other aftercare (1 source) 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; Translations: [Encounter for long-term (current) use of medications] Onset: 07-10-2022 Episodic Results Test Name Value Interpretation Reference Range Facil ity Vital Signs Date Time Vital Sign Value Performing Clinician Cesar bishop 11-04-2022 10:13-0400 Body temperature 97.59 [degF] Ct Yu APRN.HOME HEALTH RN Work Phone: [facility] 11-04-2022 10:13-0400 Body weight 48.[address] Yu APRN.HOME HEALTH RN Work Phone: [facility] 11-04-2022 10:13-0400 Diastolic blood pressure 62 mm[Hg] Ct Yu APRN.HOME HEALTH RN Work Phone: [facility] 11-04-2022 10:13-0400 Heart rate 88 /min Ct Yu APRN.HOME HEALTH RN Work Phone: [facility] 11-04-2022 10:13-0400 Respiratory rate 16 /min Ct Yu APRN.HOME HEALTH RN Work Phone: [facility] 11-04-2022 10:13-0400 SaO2% (BldA) [Mass fraction] 98 % Ct Yu APRN.HOME HEALTH RN Work Phone: [facility] 11-04-2022 10:13-0400 Systolic blood pressure 94 mm[Hg] Ct Yu APRN.HOME HEALTH RN Work Phone: [facility] 08-26-2022 11:53-0400 Body temperature 97.9 [degF] Didi Mendoza APRN.HOME HEALTH RN Work Phone: [facility] 08-26-2022 11:53-0400 Body weight 48.26 kg Didi Praisler-Wood SCREW MACHINE OPERATOR SWISS TYPE.HOME HEALTH RN Work Phone: [facility] 08-26-2022 11:53-0400 Diastolic blood pressure 78 mm[Hg] Didi Praisler-Wood SCREW MACHINE OPERATOR SWISS TYPE.HOME HEALTH RN Work Phone: [facility] 08-26-2022 11:53-0400 Heart rate 90 /min Didi Praisler-Wood SCREW MACHINE OPERATOR SWISS TYPE.HOME HEALTH RN Work Phone: [facility] 08-26-2022 11:53-0400 Respiratory rate 21 /min Didi Praisler-Wood SCREW MACHINE OPERATOR SWISS TYPE.HOME HEALTH RN Work Phone: [facility] 08-26-2022 11:53-0400 SaO2% (BldA) [Mass fraction] 98 % Didi Praisler-Wood SCREW MACHINE OPERATOR SWISS TYPE.HOME HEALTH RN Work Phone: [facility] 08-26-2022 11:53-0400 Systolic blood pressure 98 mm[Hg] Didi Praisler-Wood SCREW MACHINE OPERATOR SWISS TYPE.HOME HEALTH RN Work Phone: [facility] 01-23-2022 09:21-0500 Body weight 49.9 kg Sara Rajguru SCREW MACHINE OPERATOR [employer] TYPE.HOME HEALTH RN Work Phone: [facility] 01-23-2022 09:21-0500 Diastolic blood pressure 66 mm[Hg] Sara Rajguru SCREW MACHINE OPERATOR [employer] TYPE.HOME HEALTH RN Work Phone: [facility] 01-23-2022 09:21-0500 Heart rate 80 /min Sara Rajguru SCREW MACHINE OPERATOR SWISS TYPE.HOME HEALTH RN Work Phone: [facility] 01-23-2022 09:21-0500 Systolic blood pressure 102 mm[Hg] Sara Rajguru SCREW MACHINE OPERATOR SWISS TYPE.HOME HEALTH RN Work Phone: [facility] 12-19-2021 11:17-0400 Body weight 48.53 kg Sara Rajguru SCREW MACHINE OPERATOR SWISS TYPE.HOME HEALTH RN Work Phone: [facility] 12-19-2021 11:17-0400 Diastolic blood pressure 70 mm[Hg] Sara Rajguru SCREW MACHINE OPERATOR SWISS TYPE.HOME HEALTH RN Work Phone: [facility] 12-19-2021 11:17-0400 Heart rate 80 /min Sara Hernandez APRN.HOME HEALTH RN Work Phone: [facility] 12-19-2021 11:17-0400 Systolic blood pressure 112 mm[Hg] Sara Hernandez APRN.HOME HEALTH RN Work Phone: [facility] 08-22-2021 12:17-0400 Body temperature 98.29 [degF] Heidy Tariq PA-C Work Phone: [facility] 08-22-2021 12:17-0400 Body weight 49.9 kg Heidy Tariq PA-C Work Phone: [facility] 08-22-2021 12:17-0400 Diastolic blood pressure 70 mm[Hg] Heidy Tariq PA-C Work Phone: [facility] 08-22-2021 12:17-0400 Heart rate 76 /min Heidylondon Tariq PA-C Work Phone: [facility] 08-22-2021 12:17-0400 Respiratory rate 16 /min Heidy Tariq PA-C Work Phone: [facility] 08-22-2021 12:17-0400 Systolic blood pressure 102 mm[Hg] Heidy Tariq PA-C Work Phone: [facility] Encounters Encounter Date Encounter Type Care Provider Facility Start: 03-03-2023 End: 03-03-2023 ambulatory KYLEIGH CASH Facility:[facility] Start: 02-06-2023 End: 02-07-2023 ambulatory KYLEIGH CASH Facility:[facility] Start: 02-06-2023 End: 02-06-2023 ambulatory Sara Hernandez APRN.HOME HEALTH RN Work Phone: Psychiatry Procedures Date Procedure Procedure Detail Performing Clinician Start: 11-04-2022 STREP A MOLECULAR (POC) Didi Mendoza APRN.HOME HEALTH RN Work Phone: Start: 05-24-2022 Follow-up visit Follow Up SARA HERNANDEZ Start: 09-21-2021 Adult depression scr eening assessment Sara Hernandez SCREW MACHINE OPERATOR SWISS TYPE.HOME HEALTH RN Work Phone: Start: 08-22-2021 Adult depression scr eening assessment Heidy Tariq PA-C Work Phone: Start: 04-19-2020 Adult depression scr eening assessment Heidy Tariq PA-C Work Phone: Tonsillectomy CHARBEL GILLESPIE RN-HOME HEALTH RN Plan of Treatment Date Care Activity Detail Author Start: 10-18-2022 Influenza vaccination [facility] Start: 09-21-2022 Adult depression screening assessment DEPRESSION SCREENING [facility] Start: 08-22-2022 Adult depression screening assessment DEPRESSION SCREENING [facility] Start: 05-24-2022 End: 07-24-2022 25-hydroxyvitamin D3 [Mass/volume] in Serum or Plasma VITAMIN D 25 HYDROXY Lab Routine Encounter for long-term (current) use of medications Expected: 05/24/2022, Expires: 07/24/2022 [facility] Work Phone: Immunizations Immunization Date Immunization Notes Care Provider Jose Guadalupe perez 01-25-2014 hepatitis B pediatri c vaccine CHARBEL MEDEL SCREW MACHINE OPERATOR SWISS TYPE-HOME HEALTH RN [facility] 01-25-2014 hepatitis B vaccine, pediatric or pediatric/adolescent dosage Heidy Tariq PA-C Work Phone: [facility] 07-17-2012 Meningococcal, MCV4, unspecified conjugate formulation(groups A, C, Y and W-135) Heidy Tariq PA-C Work Phone: [facility] 09-23-2007 Meningococcal, MCV4, unspecified conjugate formulation(groups A, C, Y and W-135) Heidy Tariq PA-C Work Phone: [facility] Work Phone: 09-23-2007 tetanus toxoid, redu niecy diphtheria toxoid, and acellular pertussis vaccine, adsorbed Heidy Tariq PA-C Work Phone: [facility] Work Phone: 12-21-2004 influenza virus vaccine, unspecified formulation Heidy MANZO-C Work Phone: [facility] Work Phone: 05-15-2000 diphtheria, tetanus toxoids and acellular pertussis vaccine Heidy MANZO-C Work Phone: [facility] Work Phone: 05-15-2000 measles, mumps and rubella virus vaccine Heidy MANZO-C Work Phone: [facility] Work Phone: 05-15-2000 measles/mumps/rubell a virus vaccine CHARBEL MEDEL SCREW MACHINE OPERATOR SWISS TYPE-HOME HEALTH RN [facility] 05-03-1996 diphtheria, tetanus toxoids and acellular pertussis vaccine Heidy Tariq PA-C Work Phone: [facility] Work Phone: 05-03-1996 haemophilus influenz ae type b vaccine, HbOC conjugate Heidy MANZO-C Work Phone: [facility] Work Phone: 05-03-1996 trivalent poliovirus vaccine, live, oral Heidy Tariq PA-C Work Phone: [facility] Work Phone: 02-09-1996 measles, mumps and rubella virus vaccine Heidy MEYERC Work Phone: [facility] Work Phone: 01-31-1996 Chicken Pox (disease) [place] MANZO-C Work Phone: [facility] 1995 DTP-Haemophilus influenzae type b conjugate vaccine Ct Yu SCREW MACHINE OPERATOR SWISS TYPE.HOME HEALTH RN Work Phone: [facility] Work Phone: 1995 haemophilus influenz ae type b vaccine, HbOC conjugate Heidy MANZO-C Work Phone: [facility] Work Phone: 1995 hepatitis B vaccine, pediatric or pediatric/adolescent dosage Heidy Tariq PA-C Work Phone: [facility] Work Phone: 1995 Tetramune Heidy Robinso n PA-C Work Phone: [facility] Work Phone: 1995 trivalent poliovirus vaccine, live, oral Heidy Tariq PA-C Work Phone: [facility] Work Phone: 1995 DTP-Haemophilus influenzae type b conjugate vaccine Ct Yu APRN.HOME HEALTH RN Work Phone: [facility] Work Phone: 1995 haemophilus influenz ae type b vaccine, HbOC conjugate Heidy Tariq PA-C Work Phone: [facility] Work Phone: 1995 Tetramune Heidy Robinso n PA-C Work Phone: [facility] Work Phone: 1995 trivalent poliovirus vaccine, live, oral Heidy Tariq PA-C Work Phone: [facility] Work Phone: 1995 DTP-Haemophilus influenzae type b conjugate vaccine Ct Yu APRN.HOME HEALTH RN Work Phone: [facility] Work Phone: 1995 haemophilus influenz ae type b vaccine, HbOC conjugate Heidy Tariq PA-C Work Phone: [facility] Work Phone: 1995 hepatitis B vaccine, pediatric or pediatric/adolescent dosage Heidy Tariq PA-C Work Phone: [facility] Work Phone: 1995 Tetramune Heidy Robinso n PA-C Work Phone: [facility] Work Phone: 1995 trivalent poliovirus vaccine, live, oral Heidy Tariq PA-C Work Phone: [facility] Work Phone: 1995 hepatitis B vaccine, pediatric or pediatric/adolescent dosage Heidy Tariq PA-C Work Phone: [facility] Work Phone: Payers Date Payer Category Payer Medicaid [id number] 2016 Medicaid [employer] [place] [id number] 2016-Present [phone] [facility] [id number] [place] [id number] Medicaid [id number] 2016 Medicaid [id number] 1995 Unknown [id number] Unknown [id number] Social History Date Type Detail Facility Start: 12-21-2010 End: 07-27-2022 Tobacco smoking status NHIS Never smoked tobacco [facility] Start: 08-14-2020 End: 08-22-2021 Alcohol intake Current non-drinker of alcohol (finding) [facility] Start: 03-08-2020 History SDOH Alcohol Frequency 4 [facility] Start: 03-08-2020 History SDOH Alcohol Std Drinks 3 [facility] Start: 03-08-2020 History SDOH Alcohol Binge 2 [facility] Start: 03-08-2020 History SDOH Social Connections Anabaptism 1 [facility] Start: 03-08-2020 History SDOH Social Connections Living 8 [facility] Start: 03-08-2020 History SDOH Stress 5 [facility] Start: 03-08-2020 Education 14 [facility] Start: 1995 Sex Assigned At Female [facility] Start: 07-29-2021 End: 12-19-2021 Exposure to SARS-CoV-2 (event) Not sure [facility] Start: 12-21-2010 End: 07-27-2022 Tobacco use and exposure Smokeless tobacco non-user [facility] Work Phone: Start: 09-21-2021 End: 11-04-2022 Alcohol intake Current drinker of alcohol (finding) [facility] Start: 09-21-2021 History SDOH Alcohol Comment occasionally [facility] Start: 06-28-2022 End: 08-26-2022 History of Social function [facility] Start: 06-28-2022 End: 08-26-2022 Tobacco use panel [facility] Adult Depression Screening Assessment 1 [facility] Start: 01-26-2020 Gender identity Identifies as female gender (finding) [facility] Do you belong to any clubs or organizations such as caodaism groups, [employer], [employer] or athletic groups, or school groups? No [facility] Are you now , , , , never or living with a partner? Living with partner [facility] How often to you hav e a drink containing alcohol? 2-3 time sa week [facility] How many standard dr inks containing alcohol do you have on a typical day? 5 or 6 [facility] How often do you hav e 6 or more drinks on 1 occasion? Less than monthly [facility] Do you feel stress - tense, restless, nervous, or anxious, or unable to sleep at night because your mind is troubled all the time - these days [OSQ] Very much [facility] (I/We) worried wheth er (my/our) food would run out before (I/we) got money to buy more. DK or Refused [facility] At any time in the p ast 12 months, were you homeless or living in custodial [including now]? Yes [facility] Sex Assigned At Sex [facility] Clinical Notes 08-08-2021 to 03-03-2023 Sara Hernandez APRN.HOME HEALTH RN - 02/06/2023 9:46 AM ESTTelephone Encounter - Sara Hernandez APRN.HOME HEALTH RN - 01/22/2023 9:23 AM ESTRSara gan APRN.HOME HEALTH RN - 12/12/2022 9:02 AM EDTPatient Instructions Note Date & Type Note Facility 03-03-2023 Note HNO ID: [id number] Author: SARA HERNANDEZ APRN.HOME HEALTH RN Service: ? Author Type: Nurse Practitioner Type: Progress Notes Filed: 03/07/2023 18:50 Note Text: FOLLOW UP - PSYCHIATRIC PROGRESS NOTE Visit Type:Virtual Visit utilizing two-way audio and video for at least a portion of the visit. Consent for virtual visit obtained verbally. Confidentiality limitations with virtual visits reviewed with the patient and guardian, if present, who have accepted the risk verbally prior to proceeding with encounter. I have communicated my name and active licensure. The patient's identity and physical location were verified at the time of this visit. Either the patient or their legal support representative has been informed of the risks and benefits of -- and alternatives to -- treatment through a remote evaluation and consents to proceed with the evaluation remotely. Reason for Visit: Outpatient follow-up and safety monitoring of previously prescribed psychiatric medication, psychotherapy or other treatment CC: Follow up for psychiatric medication management HPI: Treatment plan from last visit on 12/12/2022: 1. Continue Wellbutrin and Lexapro at the same dose. 2. Utilize Xanax for overwhelming anxiety or panic symptoms. Did not request a refill at this appointment. 3. Encouraged patient to explore opportunities that get her out of the house and look into working again. 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 4. Schedule an appointment for individual psychotherapy. Today Mathew shares that I am good . She has been getting out there more. Anxiety is improving. Exposure therapy has been helpful. 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 Consistent in taking her Wellbutrin and Lexapro. Denies any side effects. Wellbutrin helps with mood and energy. Denies interference with appetite and sleep. She starts therapy at the counseling center on March 21. Has limited the use of xanax to once or twice a month. She went to her endocrine appointment without it. Restarted Cabergoline as her prolactin levels are increasing. May need to have an MRI in the future. Is being monitored for possible pituitary tumor. Has been applying for jobs on [employer]. Has gotten some phone calls. Gets anxious about calling them back. 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 Shares that she enjoyed that Risks and benefits of the medication, including any black box warnings, were discussed with the patient. Interval Progress: Improved PATIENT DATA: Generalized Anxiety Disorder Scale (ROSS-7) ROSS - 7 SCORES 12/11/2022 02/06/2023 03/03/2023 ROSS-7 Score 5 5 4 (0-4) minimal anxiety, (5-9) mild anxiety, (10-14) moderate anxiety, (15-21) severe anxiety Patient Health Questionnaire (PHQ-9) PHQ-9 12/11/2022 02/06/2023 03/03/2023 Score 4 6 4 (0-4) minimal depression, (5-9) mild depression, (10-14) moderate depression, (15-19) moderately severe depression, (20-27) severe depression PROMIS Global Health PROMIS Global Health - (T-Scores - the mean of general population = 50. Five points is a clinically meaningful difference.) 05/24/2022 11/06/2022 02/06/2023 Physical T-Score 50.8 50.8 50.8 Mental T-Score 33.8 41.1 31.3 PAST MEDICAL HISTORY Diagnosis Date Adjustment disorder with anxious mood 01/12/2016 ROSS (generalized anxiety disorder) 01/26/2020 History of chicken pox reported at age 1 Panic disorder without agoraphobia 01/12/2016 Varicella reported at age 1 PAST SURGICAL HISTORY Procedure Laterality Date TONSILLECTOMY AND ADENOIDECTOMY Current Outpatient Medications Medication Sig Dispense Refill buPROPion (WELLBUTRIN) 75 mg tablet Take 1 tablet by mouth two times a day. 60 tablet 0 escitalopram oxalate (LEXAPRO) 20 mg tablet Take 1 tablet by mouth once daily. 90 tablet 0 ketoconazole (NIZORAL) 2 % cream Apply twice daily to affected areas 60 g 11 ketoconazole (NIZORAL) 2 % shampoo Apply to body 3x weekly. Lather and let sit 5 min before rinsing. 120 mL 11 No current facility-administered medications for this visit. ROS: See HPI PFSH: See HPI VITAL SIGNS: There were no vitals filed for this visit. MENTAL STATUS EXAM: CONSTITUTIONAL: Well groomed, Appropriately dressed ORIENTATION: Person, Place, Time and Situation MEMORY: Recent intact, Remote intact, Immediate intact CONCENTRATION: Normal MOOD: euthymic AFFECT: Full and appropriate to topic SPEECH : Clear AND distinct LANGUAGE : Normal ASSOCIATIONS: Intact THOUGHT PROCESS : Logical, Coherent, and Rational PROGRESSION : There was no evidence of disturbance in thought perception or progression. FUND OF KNOWLEDGE : Appropriate and Adequate SUICIDE: None HOMICIDE: None DATA REVIEWED: Psychiatric scales and Electronic medical record DIAGNOSIS: PRIMARY: Panic disorder with agoraphobia Secondary : MDD, recurrent, in partial remissio (more content not included)... [facility] 02-20-2023 Note HNO ID: [id number] Author: BRENDA HURTADO LPN Service: ? Author Type: LICENSED NURSE Type: Progress Notes Filed: 02/21/2023 18:29 Note Text: Scan on 02/20/2023 11:26 AM by Provider, JAYCEE Portillo: Consultation - Endocrinology [facility] 02-06-2023 Note HNO ID: [id number] Author: Sara Hernandez APRN.CNP Service: ? Author Type: Nurse Practitioner Type: Progress Notes Filed: 02/06/2023 9:47 AM Note Text: Patient did not log in for her virtual visit with the provider today. She did not answer her phone when she was contact prior to the appointment. [facility] 02-06-2023 History of Presen t illness Narrative Patient did not log in for her virtual visit with the provider today. She did not answer her phone when she was contact prior to the appointment. documented in this encounter [facility] 01-22-2023 Miscellaneous Notes This patient gave consent to this Medical E/Visit Advice Message and is aware that it may result in a bill to their insurance, as well as the possibility of receiving a bill for a copay and/or deductible. They are an established patient, but are not seeking information exclusively about a problem treated during an in person or video visit in the last seven days. I did not recommend an in person or video visit within seven days of my reply. See the [employer] message reply for my assessment and plan. I spent a total of 15 minutes reviewing the patient's prior medical records and current request for medical advice, prescribing medications or ordering tests (if applicable), replying to the patient, and documenting the encounter. documented in this encounter [facility] 12-12-2022 Note HNO ID: [id number] Author: Sara Hernandez APRN.CNP Service: ? Author Type: Nurse Practitioner Type: Progress Notes Filed: 12/18/2022 10:25 AM Note Text: FOLLOW UP - PSYCHIATRIC PROGRESS NOTE Visit Type:Virtual Visit utilizing two-way audio and video for at least a portion of the visit. Consent for virtual visit obtained verbally. Confidentiality limitations with virtual visits reviewed with the patient and guardian, if present, who have accepted the risk verbally prior to proceeding with encounter. I have communicated my name and active licensure. The patient's identity and physical location were verified at the time of this visit. Either the patient or their legal support representative has been informed of the risks and benefits of -- and alternatives to -- treatment through a remote evaluation and consents to proceed with the evaluation remotely. Reason for Visit: Outpatient follow-up and safety monitoring of previously prescribed psychiatric medication, psychotherapy or other treatment CC: Anxiety and mood HPI: Today Mathew shares that things have been better since restarting Wellbutrin. Denies any concerns with her sleep. Shares that her mood has improved but continues to struggle with motivation. Denies changes in appetite. Has noticed that anxiety has increased this week. Unsure of the trigger. She has not left her house much as she is done with IOP. Doesn't have a lot of reasons to leave the house. Gets anxious and needs to push herself more. She has seen a psychiatrist and therapist virtually [facility] that she was not a good fit with the psychiatrist there due to them wanting to change her medications and starting her on an anti-psychotic. Will see if she can just do therapy there. Things are going well in her relationship. She does have a car. She would like to feel more comfortable going to stores. She is interested in starting a job. She gets anxious when she thinks about it. 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 Has reduced her use of xanax significantly. Uses it about 2 times a month to manage panic situations. Risks and benefits of the medication, including any black box warnings, were discussed with the patient. PDMP report was reviewed and found to be appropriate without any signs of misuse or diversion. Interval Progress: Slightly improved PATIENT DATA: Generalized Anxiety Disorder Scale (ROSS-7) ROSS - 7 SCORES 06/27/2022 11/06/2022 12/11/2022 ROSS-7 Score 11 5 5 (0-4) minimal anxiety, (5-9) mild anxiety, (10-14) moderate anxiety, (15-21) severe anxiety Patient Health Questionnaire (PHQ-9) PHQ-9 06/27/2022 11/06/2022 12/11/2022 Score 9 9 4 (0-4) minimal depression, (5-9) mild depression, (10-14) moderate depression, (15-19) moderately severe depression, (20-27) severe depression PROMIS Global Health PROMIS Global Health - (T-Scores - the mean of general population = 50. Five points is a clinically meaningful difference.) 01/22/2022 05/24/2022 11/06/2022 Physical T-Score 47.7 50.8 50.8 Mental T-Score 31.3 33.8 41.1 PAST MEDICAL HISTORY Diagnosis Date Adjustment disorder with anxious mood 01/12/2016 ROSS (generalized anxiety disorder) 01/26/2020 History of chicken pox reported at age 1 Panic disorder without agoraphobia 01/12/2016 Varicella reported at age 1 PAST SURGICAL HISTORY Procedure Laterality Date TONSILLECTOMY AND ADENOIDECTOMY Current Outpatient Medications Medication Sig Dispense Refill buPROPion SR (WELLBUTRIN SR) 200 mg 12 hr tablet Take 1 tablet by mouth once daily. 30 tablet 1 escitalopram oxalate (LEXAPRO) 20 mg tablet Take 1 tablet by mouth once daily. 90 tablet 0 ketoconazole (NIZORAL) 2 % cream Apply twice daily to affected areas 60 g 11 ketoconazole (NIZORAL) 2 % shampoo Apply to body 3x weekly. Lather and let sit 5 min before rinsing. 120 mL 11 No current facility-administered medications for this visit. ROS: GENERAL: Negative for malaise, significant weight loss and fever. HEENT: No changes in hearing or vision, no nose bleeds or other nasal problems. RESPIRATORY: Negative for cough, wheezing and shortness of breath. CARDIOVASCULAR: Negative for chest pain, leg swelling and palpitations. GI: Negative for abdominal discomfort, blood in stools or black stools. : Negative for dysuria, frequency and incontinence. MUSCULOSKELETAL: Negative for joint pain or swelling, back pain, and muscle pain. SKIN: Negative for lesions, rash, and itching. HEMATOLOGY/LYMPHOLOGY Negative for prolonged bleeding, bruising easily, and swollen nodes. ENDOCRINE: Negative for cold or heat intolerance, polyuria, polydipsia and goiter. NEURO: Negative for headaches, syncope, seizures and paralysis. PFSH: See HPI VITAL SIGNS: There were no vitals filed for this visit. MENTAL STATUS EXAM: CONSTITUTIONAL: Casually dressed ORIENTATION: Person, Place, Time and (more content not included)... [facility] 12-12-2022 History of Presen t illness Narrative FOLLOW UP - PSYCHIATRIC PROGRESS NOTE Visit Type:Virtual Visit utilizing two-way audio and video for at least a portion of the visit. Consent for virtual visit obtained verbally. Confidentiality limitations with virtual visits reviewed with the patient and guardian, if present, who have accepted the risk verbally prior to proceeding with encounter. I have communicated my name and active licensure. The patient's identity and physical location were verified at the time of this visit. Either the patient or their legal support representative has been informed of the risks and benefits of -- and alternatives to -- treatment through a remote evaluation and consents to proceed with the evaluation remotely. Reason for Visit: Outpatient follow-up and safety monitoring of previously prescribed psychiatric medication, psychotherapy or other treatment CC: Anxiety and mood HPI: Today Mathew shares that things have been better since restarting Wellbutrin. Denies any concerns with her sleep. Shares that her mood has improved but continues to struggle with motivation. Denies changes in appetite. Has noticed that anxiety has increased this week. Unsure of the trigger. She has not left her house much as she is done with IOP. Doesn't have a lot of reasons to leave the house. Gets anxious and needs to push herself more. She has seen a psychiatrist and therapist virtually [facility] that she was not a good fit with the psychiatrist there due to them wanting to change her medications and starting her on an anti-psychotic. Will see if she can just do therapy there. Things are going well in her relationship. She does have a car. She would like to feel more comfortable going to stores. She is interested in starting a job. She gets anxious when she thinks about it. 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 Has reduced her use of xanax significantly. Uses it about 2 times a month to manage panic situations. Risks and benefits of the medication, including any black box warnings, were discussed with the patient. PDMP report was reviewed and found to be appropriate without any signs of misuse or diversion. Interval Progress: Slightly improved PATIENT DATA: Generalized Anxiety Disorder Scale (ROSS-7) ROSS - 7 SCORES 06/27/2022 11/06/2022 12/11/2022 ROSS-7 Score 11 5 5 (0-4) minimal anxiety, (5-9) mild anxiety, (10-14) moderate anxiety, (15-21) severe anxiety Patient Health Questionnaire (PHQ-9) PHQ-9 06/27/2022 11/06/2022 12/11/2022 Score 9 9 4 (0-4) minimal depression, (5-9) mild depression, (10-14) moderate depression, (15-19) moderately severe depression, (20-27) severe depression PROMIS Global Health PROMIS Global Health - (T-Scores - the mean of general population = 50. Five points is a clinically meaningful difference.) 01/22/2022 05/24/2022 11/06/2022 Physical T-Score 47.7 50.8 50.8 Mental T-Score 31.3 33.8 41.1 PAST MEDICAL HISTORY Diagnosis Date Adjustment disorder with anxious mood 01/12/2016 ROSS (generalized anxiety disorder) 01/26/2020 History of chicken pox reported at age 1 Panic disorder without agoraphobia 01/12/2016 Varicella reported at age 1 PAST SURGICAL HISTORY Procedure Laterality Date TONSILLECTOMY & ADENOIDECTOMY <AGE 12 age 5 Current Outpatient Medications Medication Sig Dispense Refill buPROPion SR (WELLBUTRIN SR) 200 mg 12 hr tablet Take 1 tablet by mouth once daily. 30 tablet 1 escitalopram oxalate (LEXAPRO) 20 mg tablet Take 1 tablet by mouth once daily. 90 tablet 0 ketoconazole (NIZORAL) 2 % cream Apply twice daily to affected areas 60 g 11 ketoconazole (NIZORAL) 2 % shampoo Apply to body 3x weekly. Lather and let sit 5 min before rinsing. 120 mL 11 No current facility-administered medications for this visit. ROS: GENERAL: Negative for malaise, significant weight loss and fever. HEENT: No changes in hearing or vision, no nose bleeds or other nasal problems. RESPIRATORY: Negative for cough, wheezing and shortness of breath. CARDIOVASCULAR: Negative for chest pain, leg swelling and palpitations. GI: Negative for abdominal discomfort, blood in stools or black stools. : Negative for dysuria, frequency and incontinence. MUSCULOSKELETAL: Negative for joint pain or swelling, back pain, and muscle pain. SKIN: Negative for lesions, rash, and itching. HEMATOLOGY/LYMPHOLOGY Negative for prolonged bleeding, bruising easily, and swollen nodes. ENDOCRINE: Negative for cold or heat intolerance, polyuria, polydipsia and goiter. NEURO: Negative for headaches, syncope, seizures and paralysis. PFSH: See HPI VITAL SIGNS: There were no vitals filed for this visit. MENTAL STATUS EXAM: CONSTITUTIONAL: Casually dressed ORIENTATION: Person, Place, Time and Situation MEMORY: Recent intact, Remote intact, Immediate intact CONCENTRATION: Normal MOOD: euthymic AFFECT: Full and appropriate to topic SPEECH : Clear & distinct LANGUAGE : Normal ASSOCIATIONS: Intact THOUGHT PROCESS : Logical, Coherent, and Rational PROGRESSION : There was no evidence of disturbance in thought perception or progression. FUND OF KNOWLEDGE : Appropriate and Adequate SUICIDE: None HOMICIDE: None DATA REVIEWED: Psychiatric scales and Electronic medical record DIAGNOSIS: Panic disorder with agoraphobia MDD, recurrent, in partial remission GAF: -70-61 Some mild symptoms or some difficulty in social, occupational, or school functioning, but generally functioning pretty well. TREATMENT PLAN: 1. Continue Wellbutrin and Lexapro at the same dose. 2. Utilize Xanax for overwhelming anxiety or panic symptoms. Did not request a refill at this appointment. 3. Encouraged patient to explore opportunities that get her out of the house and look into working again. 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 4. Schedule an appointment for individual psychotherapy. MEDICATION CHANGES: Current medication regimen unchanged. Follow Up: 2 months I spent a total of 28 minutes on the date of the service which included preparing to see the patient, [id number] patient care, completing clinical documentation, obtaining and/or reviewing separately obtained history, ordering medications, tests, or procedures, independently interpreting results (not separately reported), and communicating results to the patient/family/caregiver. ADD ON PSYCHOTHERAPY CODE : No SIGNATURE: Sara Hernandez APRN.CNP PATIENT NAME: Mathew Glover DATE: December 12, 2022 TIME: 9:02 AM documented in this encounter [facility] 11-06-2022 Note HNO ID: [id number] Author: Sara Hernandez APRN.CNP Service: ? Author Type: Nurse Practitioner Type: Progress Notes Filed: 11/06/2022 10:28 PM Note Text: PSYC FOLLOW UP - PSYCHIATRIC PROGRESS NOTE DIAGNOSIS: Panic disorder with agoraphobia History of ADHD GAF: -70-61 Some mild symptoms or some difficulty in social, occupational, or school functioning, but generally functioning pretty well. TREATMENT PLAN: Restart Wellbutrin and change it to sustained release dose. Continue Lexapro at the same dose. Utilize xanax as needed for overwhelming episodes of anxiety and panic. Start individual psychotherapy. Follow up in 4 weeks. Medication Update: Wellbutrin 200 mg SR - take 1 tablet once every morning. Continue Lexapro at the same dose. Utilize Xanax as needed to manage overwhelming episodes of anxiety. The effects and side effects of all the medications were reviewed in detail with the patient. PDMP report was reviewed and found to be appropriate without any signs of misuse or diversion. Patient is in agreement with the treatment plan and aware to reach out with any questions, concerns, or worsening of symptoms prior to the next appointment. CC: Follow up for psychiatric medication management. With the patient consent, visit was performed virtually. I have communicated my name and active licensure. The patient's identity and physical location were verified at the time of this visit. Either the patient or their legal support representative has been informed of the risks and benefits of -- and alternatives to -- treatment through a remote evaluation and consents to proceed with the evaluation remotely. HPI: Mathew Glover is a 27 year old Female with a history of panic disorder and ADHD presenting today for follow-up. Date of last visit: 06/28/2022 Plan from last visit: Start Wellbutrin to address her concerns regarding mood and motivation. Continue Lexapro at the same dose. Utilize xanax as needed for severe anxiety and panic symptoms. Start IOP at [facility]. Send an update in 1 week via [employer] regarding the addition of Wellbutrin. Follow up in October Today Mathew shares that she has been doing better. She completed IOP and after care. It got better going after each visit. She saw another provider at [place] [address]. She was still feeling fatigued and so they took her off Wellbutrin. She feels that it was helpful for her energy now that she has not taken it for 4 weeks. Her mood feels good but she is not as motivated. Would like to restart Wellbutrin. She had to reschedule her therapy intake at [place] [address] due to being ill. She has been physically sick for the last 3 weeks. She has been able to reduce her reliance on xanax. She has learned a breathing technique that has been helpful. Interval Progress: Slightly improved Risks and benefits of the medication, including any black box warnings, were discussed with the patient. Social History: See HPI PATIENT DATA: Generalized Anxiety Disorder Scale (ROSS-7) ROSS - 7 SCORES 05/24/2022 06/27/2022 11/06/2022 ROSS-7 Score 10 11 5 (0-4) minimal anxiety, (5-9) mild anxiety, (10-14) moderate anxiety, (15-21) severe anxiety Patient Health Questionnaire (PHQ-9) PHQ-9 05/24/2022 06/27/2022 11/06/2022 Score 9 9 9 (0-4) minimal depression, (5-9) mild depression, (10-14) moderate depression, (15-19) moderately severe depression, (20-27) severe depression ROS: See HPI General: Negative for fever, malaise, unintentional weight loss HEENT: Negative for recent changes in vision or hearing, no nasal drainage Respiratory: Negative for cough, wheezing or SOB Cardiovascular: Negative for chest pain GI: Negative for nausea, vomiting, change in bowel habits MUSCULOSKELETAL: Negative for acute back or joint pain SKIN: Negative for rash NEURO: Negative for headaches, seizures, focal neurological deficits All other systems negative. VITAL SIGNS: BP Temp Pulse Resp SpO2 MENTAL STATUS EXAMINATION: Appearance: Appropriately groomed, appears stated age Behavior: Appropriately engaged Psychomotor: No psychomotor agitation Cognition Level of Consciousness: Awake and alert. No fluctuation in wakefulness. Orientation: Grossly oriented Memory: Intact Attention/Concentration: Good Fund of Knowledge: Able to demonstrate an awareness of current events. Mood: Euthymic Affect: Congruent to mood Speech/Language: Appropriate tone, prosody, jacquie, phonetics, and syntax Thought Form: Goal-directed. No loosening of associations. Thought Content: No delusions noted or endorsed. Perceptual Disturbances: Did not appear to respond to auditory stimuli. Safety: Suicidal Ideations: No suicidal ideation, intent or plan. Homicidal Ideations: No homicidal ideation, intent or plan. Insight: Appropriate Judgment: Appropriate I spent a total of 28 minutes on the date of the service which included prepari (more content not included)... [facility] 11-04-2022 Note HNO ID: [id number] Author: Ct Yu APRN.HOME HEALTH RN Service: ? Author Type: Nurse Practitioner Type: Progress Notes Filed: 11/04/2022 10:33 AM Note Text: SUBJECTIVE: Mathew Glover is a 27 year old female. Who presents today with sore throat, congestion cough, lost voice. She dies any fever. She has taken dayquil and nyquil. She has been exposed to others who are sick. She is here today for strep testing. HPI PAST MEDICAL HISTORY Diagnosis Date Adjustment disorder with anxious mood 01/12/2016 ROSS (generalized anxiety disorder) 01/26/2020 History of chicken pox reported at age 1 Panic disorder without agoraphobia 01/12/2016 Varicella reported at age 1 FAMILY HISTORY Problem Relation Age of Onset Anxiety disorder Mother Cancer Maternal Grandmother cervical Social History Tobacco Use Smoking status: Never Smokeless tobacco: Never Substance Use Topics Alcohol use: Yes Comment: occasionally Drug use: No ALLERGIES Allergen Reactions Bees Anaphylaxis Current Outpatient Medications Medication Sig Dispense Refill escitalopram oxalate (LEXAPRO) 20 mg tablet Take 1 tablet by mouth once daily. 90 tablet 0 ketoconazole (NIZORAL) 2 % cream Apply twice daily to affected areas 60 g 11 ketoconazole (NIZORAL) 2 % shampoo Apply to body 3x weekly. Lather and let sit 5 min before rinsing. 120 mL 11 buPROPion (WELLBUTRIN) 75 mg tablet Take 1 tablet by mouth twice daily. (Patient not taking: Reported on 11/04/2022) 60 tablet 3 No current facility-administered medications for this visit. OBJECTIVE: BP 94/62 Pulse 88 Temp 36.4 ?C (97.6 ?F) Resp 16 Wt 49 kg (108 lb) LMP (LMP Unknown) SpO2 98% BMI 19.75 kg/m? ROS: All systems reviewed and are otherwise negative Constitutional: Well developed, well nourished, AANDO X3. ENT: Head is atraumatic, airway patent, mucosal membranes moist, pink, no exudate, no peritonsillar abscess, kelly TM clear with no signs of infection Neck: full ROM, no meningeal signs Cardiac: heart tones regular rate and rhythm Respiratory: lung CTA : no CVA tenderness MS: moves all extremities, no deformities noted Neuro: GCS 15 no focal deficits Skin: warm and dry with out rash, lesion or ecchymosis Psych: alert appropriate, speech clear Diagnostic testing: Strep testing is negative MDM: Patient presented to the [facility] today for strep testing. Vital signs were evaluated and found to be within normal limits. Mathew Glover was in no acute distress. Her strep test is negative. We have discussed over the counter medications to use for viral pharyngitis. They will follow-up with their family doctor in the next 2-3 days. If symptoms worsen they will go straight to the emergency department for further evaluation and treatment. They voiced understanding of the plan of care and are in agreement. ASSESSMENT/PLAN: 1. Sore throat - ICD9: 462, ICD10: J02.9 - STREP A MOLECULAR (POC) Ct Yu APRN.[facility] 11-04-2022 History of Presen t illness Narrative SUBJECTIVE: Mathew Glover is a 27 year old female. Who presents today with sore throat, congestion cough, lost voice. She dies any fever. She has taken dayquil and nyquil. She has been exposed to others who are sick. She is here today for strep testing. HPI PAST MEDICAL HISTORY Diagnosis Date Adjustment disorder with anxious mood 01/12/2016 ROSS (generalized anxiety disorder) 01/26/2020 History of chicken pox reported at age 1 Panic disorder without agoraphobia 01/12/2016 Varicella reported at age 1 FAMILY HISTORY Problem Relation Age of Onset Anxiety disorder Mother Cancer Maternal Grandmother cervical Social History Tobacco Use Smoking status: Never Smokeless tobacco: Never Substance Use Topics Alcohol use: Yes Comment: occasionally Drug use: No ALLERGIES Allergen Reactions Bees Anaphylaxis Current Outpatient Medications Medication Sig Dispense Refill escitalopram oxalate (LEXAPRO) 20 mg tablet Take 1 tablet by mouth once daily. 90 tablet 0 ketoconazole (NIZORAL) 2 % cream Apply twice daily to affected areas 60 g 11 ketoconazole (NIZORAL) 2 % shampoo Apply to body 3x weekly. Lather and let sit 5 min before rinsing. 120 mL 11 buPROPion (WELLBUTRIN) 75 mg tablet Take 1 tablet by mouth twice daily. (Patient not taking: Reported on 11/04/2022) 60 tablet 3 No current facility-administered medications for this visit. OBJECTIVE: BP 94/62 Pulse 88 Temp 36.4 C (97.6 F) Resp 16 Wt 49 kg (108 lb) LMP (LMP Unknown) SpO2 98% BMI 19.75 kg/m ROS: All systems reviewed and are otherwise negative Constitutional: Well developed, well nourished, A&O X3. ENT: Head is atraumatic, airway patent, mucosal membranes moist, pink, no exudate, no peritonsillar abscess, kelly TM clear with no signs of infection Neck: full ROM, no meningeal signs Cardiac: heart tones regular rate and rhythm Respiratory: lung CTA : no CVA tenderness MS: moves all extremities, no deformities noted Neuro: GCS 15 no focal deficits Skin: warm and dry with out rash, lesion or ecchymosis Psych: alert appropriate, speech clear Diagnostic testing: Strep testing is negative MDM: Patient presented to the [facility] today for strep testing. Vital signs were evaluated and found to be within normal limits. Mathew Glover was in no acute distress. Her strep test is negative. We have discussed over the counter medications to use for viral pharyngitis. They will follow-up with their family doctor in the next 2-3 days. If symptoms worsen they will go straight to the emergency department for further evaluation and treatment. They voiced understanding of the plan of care and are in agreement. ASSESSMENT/PLAN: 1. Sore throat - ICD9: 462, ICD10: J02.9 - STREP A MOLECULAR (POC) Ct Yu APRN.HOME HEALTH RN documented in this encounter [facility] 08-26-2022 Note HNO ID: [id number] Author: Didi Mendoza APRN.CNP Service: ? Author Type: Nurse Practitioner Type: Progress Notes Filed: 08/26/2022 12:07 PM Note Text: Subjective Dental Problem Associated symptoms include headaches. Pertinent negatives include no chills, fever or rash. Mathew Glover is a 27 year old female who presents with dental pain for the past week. She has been having trouble with her right upper wisdom tooth for the past year on and off, it has been hurting consistently for the past week. She has had right upper jaw pain and headache. She rates her pain 8/10. She has taken advil for pain. She has not had a fever. Review of Systems Constitutional: Negative for chills and fever. HENT: Negative for ear pain. See HPI Skin: Negative for rash. Neurological: Positive for headaches. BP 98/78 Pulse 90 Temp 36.6 ?C (97.9 ?F) Resp 21 Wt 48.3 kg (106 lb 6.4 oz) LMP (LMP Unknown) SpO2 98% BMI 19.46 kg/m? PAST MEDICAL HISTORY Diagnosis Date Adjustment disorder with anxious mood 01/12/2016 ROSS (generalized anxiety disorder) 01/26/2020 History of chicken pox reported at age 1 Panic disorder without agoraphobia 01/12/2016 Varicella reported at age 1 PAST SURGICAL HISTORY Procedure Laterality Date TONSILLECTOMY AND ADENOIDECTOMY ALLERGIES Bees MEDICATIONS escitalopram oxalate (LEXAPRO) 20 mg tablet Take 1 tablet by mouth once daily. buPROPion (WELLBUTRIN) 75 mg tablet Take 1 tablet by mouth twice daily. ketoconazole (NIZORAL) 2 % cream Apply twice daily to affected areas ketoconazole (NIZORAL) 2 % shampoo Apply to body 3x weekly. Lather and let sit 5 min before rinsing. FAMILY HISTORY Problem Relation Age of Onset Anxiety disorder Mother Cancer Maternal Grandmother cervical Social History Tobacco Use Smoking status: Never Smokeless tobacco: Never Substance Use Topics Alcohol use: Yes Comment: occasionally Drug use: No Objective Physical Exam Vitals and nursing note reviewed. Constitutional: Appearance: Normal appearance. HENT: Right Ear: Tympanic membrane, ear canal and external ear normal. Left Ear: Tympanic membrane, ear canal and external ear normal. Mouth/Throat: Mouth: Mucous membranes are moist. Pharynx: No oropharyngeal exudate or posterior oropharyngeal erythema. Skin: General: Skin is warm and dry. Findings: No erythema or rash. Neurological: Mental Status: She is alert. ASSESSMENT/PLAN: 1. Dental infection - ICD9: 522.4, ICD10: K04.7 - AMOXICILLIN 875 MG TABLET - Follow-up with your dentist as soon as possible. - Discussed red flags and need for immediate medical evaluation if any occur. - Discussed supportive care treatment with fluids, rest and analgesia. - Discussed expected course of illness Didi Mendoza APRN.ALONZO [facility] 08-26-2022 Instructions Didi Mendoza APRN.CNP - 08/26/2022 12:07 PM EDT ASSESSMENT/PLAN: 1. Dental infection - ICD9: 522.4, ICD10: K04.7 - AMOXICILLIN 875 MG TABLET - Follow-up with your dentist as soon as possible. - Discussed red flags and need for immediate medical evaluation if any occur. - Discussed supportive care treatment with fluids, rest and analgesia. - Discussed expected course of illness Didi Mendoza APRN.ALONZO TOOTHACHE: Your exam shows that your toothache is probably due to tooth decay and infection. Poor dental care is the main cause of this problem. Swelling and redness around a painful tooth often means you have a dental abscess. Pain medicine and antibiotics can help reduce symptoms, but you will need to see a dentist within the next few days to have your problem properly treated. Fillings or root canal work may be needed to save your tooth. If the problem is severe, your tooth may need to be pulled. Please return here right away if you have a fever over 101F, can t swallow, or develop severe swelling. documented in this encounter [facility] 08-26-2022 History of Presen t illness Narrative Images from the original note were not included. Subjective Dental Problem Associated symptoms include headaches. Pertinent negatives include no chills, fever or rash. Mathew Glover is a 27 year old female who presents with dental pain for the past week. She has been having trouble with her right upper wisdom tooth for the past year on and off, it has been hurting consistently for the past week. She has had right upper jaw pain and headache. She rates her pain 8/10. She has taken advil for pain. She has not had a fever. Review of Systems Constitutional: Negative for chills and fever. HENT: Negative for ear pain. See HPI Skin: Negative for rash. Neurological: Positive for headaches. BP 98/78 Pulse 90 Temp 36.6 C (97.9 F) Resp 21 Wt 48.3 kg (106 lb 6.4 oz) LMP (LMP Unknown) SpO2 98% BMI 19.46 kg/m PAST MEDICAL HISTORY Diagnosis Date Adjustment disorder with anxious mood 01/12/2016 ROSS (generalized anxiety disorder) 01/26/2020 History of chicken pox reported at age 1 Panic disorder without agoraphobia 01/12/2016 Varicella reported at age 1 PAST SURGICAL HISTORY Procedure Laterality Date TONSILLECTOMY & ADENOIDECTOMY <AGE 12 age 5 ALLERGIES Bees MEDICATIONS escitalopram oxalate (LEXAPRO) 20 mg tablet Take 1 tablet by mouth once daily. buPROPion (WELLBUTRIN) 75 mg tablet Take 1 tablet by mouth twice daily. ketoconazole (NIZORAL) 2 % cream Apply twice daily to affected areas ketoconazole (NIZORAL) 2 % shampoo Apply to body 3x weekly. Lather and let sit 5 min before rinsing. FAMILY HISTORY Problem Relation Age of Onset Anxiety disorder Mother Cancer Maternal Grandmother cervical Social History Tobacco Use Smoking status: Never Smokeless tobacco: Never Substance Use Topics Alcohol use: Yes Comment: occasionally Drug use: No Objective Physical Exam Vitals and nursing note reviewed. Constitutional: Appearance: Normal appearance. HENT: Right Ear: Tympanic membrane, ear canal and external ear normal. Left Ear: Tympanic membrane, ear canal and external ear normal. Mouth/Throat: Mouth: Mucous membranes are moist. Pharynx: No oropharyngeal exudate or posterior oropharyngeal erythema. Skin: General: Skin is warm and dry. Findings: No erythema or rash. Neurological: Mental Status: She is alert. ASSESSMENT/PLAN: 1. Dental infection - ICD9: 522.4, ICD10: K04.7 - AMOXICILLIN 875 MG TABLET - Follow-up with your dentist as soon as possible. - Discussed red flags and need for immediate medical evaluation if any occur. - Discussed supportive care treatment with fluids, rest and analgesia. - Discussed expected course of illness Didi Mendoza APRN.HOME HEALTH RN documented in this encounter [facility] 07-27-2022 Note HNO ID: [id number] Author: Lorenzo Diaz MD Service: ? Author Type: Physician Type: Progress Notes Filed: 07/27/2022 10:57 AM Note Text: Patient presents with: Throat Problem: Pt reported throat, neck, ear pain x1 wk. HPI: Feeling right sore throat for 1 week. Positive symptoms: Sore throat, right Earache, some Rhinorrhea, Negative symptoms: Cough, Sinus pressure, Fever, Malaise, Fatigue, Vomiting, Diarrhea, OTC: none. PAST MEDICAL HISTORY Diagnosis Date Adjustment disorder with anxious mood 01/12/2016 ROSS (generalized anxiety disorder) 01/26/2020 History of chicken pox reported at age 1 Panic disorder without agoraphobia 01/12/2016 Varicella reported at age 1 MEDICATIONS: Current Outpatient Medications Medication Sig escitalopram oxalate (LEXAPRO) 20 mg tablet Take 1 tablet by mouth once daily. ALPRAZolam (XANAX) 0.25 mg tablet Take 1 tablet by mouth once daily as needed (panic symptoms) for up to 30 days. buPROPion (WELLBUTRIN) 75 mg tablet Take 1 tablet by mouth twice daily. ketoconazole (NIZORAL) 2 % cream Apply twice daily to affected areas ketoconazole (NIZORAL) 2 % shampoo Apply to body 3x weekly. Lather and let sit 5 min before rinsing. No current facility-administered medications for this visit. ALLERGIES: ALLERGIES Allergen Reactions Bees Anaphylaxis VITALS: BP 118/70 Pulse 98 Temp 36.8 ?C (98.2 ?F) (Tympanic) Resp 18 Wt 47.4 kg (104 lb 9.6 oz) LMP (LMP Unknown) SpO2 97% BMI 19.13 kg/m? PHYSICAL EXAM: GEN: Pleasant, in no acute distress. HEENT: PERRL, EOMI, conjunctiva clear Ears: canals clear. TMs without erythema, bulge, or effusion Sinuses: non-tender frontal sinus, non-tender maxillary sinuses Throat: moist mucous membranes, mild erythema, no exudate Neck: supple, no thyromegaly, no lymphadenopathy HEART: regular rate and rhythm, no murmurs LUNGS: clear to auscultation, no wheezes or crackles, no increased WOB ASSESSMENT/PLAN: 1. Sore throat - ICD9: 462, ICD10: J02.9 - STREP A MOLECULAR (POC) - negative. - suspect viral pharyngitis with referred pain to the ear. - Discussed supportive care treatment with rest, cold medicine, and analgesia. Lorenzo Diaz MD [facility] 07-10-2022 Note HNO ID: [id number] Author: Hafsa Bonner LPN Service: ? Author Type: ? Type: Progress Notes Filed: 07/10/2022 10:17 AM Note Text: Patient presents for EKG per Sara Hernandez CNP. Denies any problems at this time. Tolerated procedure well. Hafsa Bonner LPN [facility] 06-28-2022 Note HNO ID: [id number] Author: Sara Hernandez APRN.ALONZO Service: ? Author Type: Nurse Practitioner Type: Progress Notes Filed: 06/30/2022 10:28 PM Note Text: PSYC FOLLOW UP - PSYCHIATRIC PROGRESS NOTE DIAGNOSIS: Panic disorder with agoraphobia History of ADHD per patient GAF: -70-61 Some mild symptoms or some difficulty in social, occupational, or school functioning, but generally functioning pretty well. TREATMENT PLAN: Start Wellbutrin to address her concerns regarding mood and motivation. Continue Lexapro at the same dose. Utilize xanax as needed for severe anxiety and panic symptoms. Start IOP at [facility]. Send an update in 1 week via [employer] regarding the addition of Wellbutrin. Follow up in October Medication Update: Wellbutrin 75 mg - take 1 tablet twice daily at 7 am and 3 pm. 2. Continue the rest of the psychiatric medications at the same dose. The effects and side effects of all the medications were reviewed in detail with the patient. PDMP report was reviewed and found to be appropriate without any signs of misuse or diversion. Patient is in agreement with the treatment plan and aware to reach out with any questions, concerns, or worsening of symptoms prior to the next appointment. The patient does not have a history of seizures. CC: Follow up regarding anxiety With the patient consent, visit was performed virtually. I have communicated my name and active licensure. The patient's identity and physical location were verified at the time of this visit. Either the patient or their legal support representative has been informed of the risks and benefits of -- and alternatives to -- treatment through a remote evaluation and consents to proceed with the evaluation remotely. HPI: Mathew Glover is a 27 year old Female with a history of Panic disorder presenting today for follow-up. Date of last visit: 05/24/2022 Plan from last visit: Continue Lexapro at the same dose. Utilize Xanax as needed to help with anxiety and panic symptoms symptoms. Complete monitoring lab work and EKG prior to the next appointment. Contact [facility] to start visits there at least twice a week. Continue individual psychotherapy with current provider. Follow up in 4 to 6 weeks. Today Mathew shares that things have been going well. She completed her intake for [facility] at [place]. She starts that program on Friday. She made it through the intake but had to utilize the xanax. She will be doing it three days a week. I think it will be helpful, obviously I am really nervous . She takes her Lexapro every day. She utilizes xanax rarely to help with anxiety. She has been feeling that over the past month, she has noticed lack of motivation. Does not wish to decrease Lexapro as it has helped with anxiety. Discussed wanting to start a stimulant such as Adderall. She was diagnosed with ADHD in elementary school. Mom tried natural stuff and they recommended medication but mother didn't want patient to use medications at the young age. Mother has been diagnosed with ADHD and takes Adderall. Her sleep is still not the greatest . It takes her a couple hours for her to fall asleep and she struggled with interrupted sleep. Interval Progress: Slightly improved Risks and benefits of the medication, including any black box warnings, were discussed with the patient. Social History: See HPI PATIENT DATA: Generalized Anxiety Disorder Scale (ROSS-7) ROSS - 7 SCORES 03/22/2022 05/24/2022 06/27/2022 ROSS-7 Score 10 10 11 (0-4) minimal anxiety, (5-9) mild anxiety, (10-14) moderate anxiety, (15-21) severe anxiety Patient Health Questionnaire (PHQ-9) PHQ-9 03/22/2022 05/24/2022 06/27/2022 Score 5 9 9 (0-4) minimal depression, (5-9) mild depression, (10-14) moderate depression, (15-19) moderately severe depression, (20-27) severe depression ROS: General: Negative for fever, malaise, unintentional weight loss HEENT: Negative for recent changes in vision or hearing, no nasal drainage Respiratory: Negative for cough, wheezing or SOB Cardiovascular: Negative for chest pain GI: Negative for nausea, vomiting, change in bowel habits MUSCULOSKELETAL: Negative for acute back or joint pain SKIN: Negative for rash NEURO: Negative for headaches, seizures, focal neurological deficits All other systems negative. VITAL SIGNS: BP Temp Pulse Resp SpO2 MENTAL STATUS EXAMINATION: Appearance: Appropriately groomed, appears stated age Behavior: Appropriately engaged Psychomotor: No psychomotor agitation Cognition Level of Consciousness: Awake and alert. No fluctuation in wakefulness. Orientation: Grossly oriented Memory: Intact Attention/Concentration: Good Fund of Knowledge: Able to demonstrate an awareness of current events. Mood: Mildly anxious Affect: Congruent to mood Speech/Language: Appropriate tone, prosody, jacquie, phonetics, and syntax Thought Form: Goal-di (more content not included)... [facility] 06-28-2022 History of Presen t illness Narrative Images from the original note were not included. PSYC FOLLOW UP - PSYCHIATRIC PROGRESS NOTE DIAGNOSIS: Panic disorder with agoraphobia History of ADHD per patient GAF: -70-61 Some mild symptoms or some difficulty in social, occupational, or school functioning, but generally functioning pretty well. TREATMENT PLAN: Start Wellbutrin to address her concerns regarding mood and motivation. Continue Lexapro at the same dose. Utilize xanax as needed for severe anxiety and panic symptoms. Start IOP at [facility]. Send an update in 1 week via [employer] regarding the addition of Wellbutrin. Follow up in October Medication Update: Wellbutrin 75 mg - take 1 tablet twice daily at 7 am and 3 pm. 2. Continue the rest of the psychiatric medications at the same dose. The effects and side effects of all the medications were reviewed in detail with the patient. PDMP report was reviewed and found to be appropriate without any signs of misuse or diversion. Patient is in agreement with the treatment plan and aware to reach out with any questions, concerns, or worsening of symptoms prior to the next appointment. The patient does not have a history of seizures. CC: Follow up regarding anxiety With the patient consent, visit was performed virtually. I have communicated my name and active licensure. The patient's identity and physical location were verified at the time of this visit. Either the patient or their legal support representative has been informed of the risks and benefits of -- and alternatives to -- treatment through a remote evaluation and consents to proceed with the evaluation remotely. HPI: Mathew Glover is a 27 year old Female with a history of Panic disorder presenting today for follow-up. Date of last visit: 05/24/2022 Plan from last visit: Continue Lexapro at the same dose. Utilize Xanax as needed to help with anxiety and panic symptoms symptoms. Complete monitoring lab work and EKG prior to the next appointment. Contact [facility] to start visits there at least twice a week. Continue individual psychotherapy with current provider. Follow up in 4 to 6 weeks. Today Mathew shares that things have been going well. She completed her intake for [facility] at [place]. She starts that program on Friday. She made it through the intake but had to utilize the xanax. She will be doing it three days a week. I think it will be helpful, obviously I am really nervous . She takes her Lexapro every day. She utilizes xanax rarely to help with anxiety. She has been feeling that over the past month, she has noticed lack of motivation. Does not wish to decrease Lexapro as it has helped with anxiety. Discussed wanting to start a stimulant such as Adderall. She was diagnosed with ADHD in elementary school. Mom tried natural stuff and they recommended medication but mother didn't want patient to use medications at the young age. Mother has been diagnosed with ADHD and takes Adderall. Her sleep is still not the greatest . It takes her a couple hours for her to fall asleep and she struggled with interrupted sleep. Interval Progress: Slightly improved Risks and benefits of the medication, including any black box warnings, were discussed with the patient. Social History: See HPI PATIENT DATA: Generalized Anxiety Disorder Scale (ROSS-7) ROSS - 7 SCORES 03/22/2022 05/24/2022 06/27/2022 ROSS-7 Score 10 10 11 (0-4) minimal anxiety, (5-9) mild anxiety, (10-14) moderate anxiety, (15-21) severe anxiety Patient Health Questionnaire (PHQ-9) PHQ-9 03/22/2022 05/24/2022 06/27/2022 Score 5 9 9 (0-4) minimal depression, (5-9) mild depression, (10-14) moderate depression, (15-19) moderately severe depression, (20-27) severe depression ROS: General: Negative for fever, malaise, unintentional weight loss HEENT: Negative for recent changes in vision or hearing, no nasal drainage Respiratory: Negative for cough, wheezing or SOB Cardiovascular: Negative for chest pain GI: Negative for nausea, vomiting, change in bowel habits MUSCULOSKELETAL: Negative for acute back or joint pain SKIN: Negative for rash NEURO: Negative for headaches, seizures, focal neurological deficits All other systems negative. VITAL SIGNS: BP Temp Pulse Resp SpO2 MENTAL STATUS EXAMINATION: Appearance: Appropriately groomed, appears stated age Behavior: Appropriately engaged Psychomotor: No psychomotor agitation Cognition Level of Consciousness: Awake and alert. No fluctuation in wakefulness. Orientation: Grossly oriented Memory: Intact Attention/Concentration: Good Fund of Knowledge: Able to demonstrate an awareness of current events. Mood: Mildly anxious Affect: Congruent to mood Speech/Language: Appropriate tone, prosody, jacquie, phonetics, and syntax Thought Form: Goal-directed. No loosening of associations. Thought Content: No delusions noted or endorsed. Perceptual Disturbances: Did not appear to respond to auditory stimuli. Safety: Suicidal Ideations: No suicidal ideation, intent or plan. Homicidal Ideations: No homicidal ideation, intent or plan. Insight: Appropriate Judgment: Appropriate I spent a total of 28 minutes on the date of the service which included preparing to see the patient, [id number] patient care, completing clinical documentation, and counseling and educating the patient/family/caregiver, ordering medications/labs. Sara Hernandez APRN.[facility] June 28, 2022 10:06 AM This note was partially generated using [employer] voice recognition system. Note was reviewed for accuracy. There may be minor misspellings or grammar miscues with [employer] voice recognition. documented in this encounter [facility] 05-24-2022 Note HNO ID: [id number] Author: Sara Hernandez APRN.ALONZO Service: ? Author Type: Nurse Practitioner Type: Progress Notes Filed: 05/24/2022 11:01 AM Note Text: PSYC FOLLOW UP - PSYCHIATRIC PROGRESS NOTE DIAGNOSIS: Panic disorder with agoraphobia None GAF: -70-61 Some mild symptoms or some difficulty in social, occupational, or school functioning, but generally functioning pretty well. TREATMENT PLAN: Continue Lexapro at the same dose. Utilize Xanax as needed to help with anxiety and panic symptoms symptoms. Complete monitoring lab work and EKG prior to the next appointment. Contact [facility] to start visits there at least twice a week. Continue individual psychotherapy with current provider. Follow up in 4 to 6 weeks. The effects and side effects of all the medications were reviewed in detail with the patient. PDMP report was reviewed and found to be appropriate without any signs of misuse or diversion. Patient is in agreement with the treatment plan and aware to reach out with any questions, concerns, or worsening of symptoms prior to the next appointment. * CC: Follow up regarding anxiety With the patient consent, visit was performed virtually. I have communicated my name and active licensure. The patient's identity and physical location were verified at the time of this visit. Either the patient or their legal support representative has been informed of the risks and benefits of -- and alternatives to -- treatment through a remote evaluation and consents to proceed with the evaluation remotely. HPI: Mathew Glover is a 27 year old Female with a history of panic disorder presenting today for follow-up. Date of last visit: 03/29/2022 Plan from last visit: Increase Lexapro to address her panic and anxiety symptoms. Utilize Xanax only as needed. Patient did not request a refill at this appointment. Continue individual psychotherapy weekly. Consider the in person IOP at [facility]. Discussed engaging in bedtime yoga to help in improving her sleep quality. Follow up in 2 months Today Mathew shares that she is doing well. Feels that things are getting better in terms of her anxiety and depression. She has been pushing herself more to go outside. She is trying to get herself to stores which was very anxiety provoking before and she is trying to expose herself more to it. She is engaged in psychotherapy every 2 weeks. She has been able to get her car back. We discussed starting the IOP at [facility]. Patient wonders if she would be able to tolerate that. Provided referral information. She is going to make it a goal to call them and try at least 2 days a week. Denies any side effects from the Lexapro increase. Denies any concerns with her sleep or appetite. Drinks beer about 2 days a week. Discussed interaction of Lexapro and alcohol. Interval Progress: Slightly improved Risks and benefits of the medication, including any black box warnings, were discussed with the patient. Social History: See HPI PATIENT DATA: Generalized Anxiety Disorder Scale (ROSS-7) ROSS - 7 SCORES 01/22/2022 03/22/2022 05/24/2022 ROSS-7 Score 12 10 10 (0-4) minimal anxiety, (5-9) mild anxiety, (10-14) moderate anxiety, (15-21) severe anxiety Patient Health Questionnaire (PHQ-9) PHQ-9 01/22/2022 03/22/2022 05/24/2022 Score 9 5 9 (0-4) minimal depression, (5-9) mild depression, (10-14) moderate depression, (15-19) moderately severe depression, (20-27) severe depression ROS: General: Negative for fever, malaise, unintentional weight loss HEENT: Negative for recent changes in vision or hearing, no nasal drainage Respiratory: Negative for cough, wheezing or SOB Cardiovascular: Negative for chest pain GI: Negative for nausea, vomiting, change in bowel habits MUSCULOSKELETAL: Negative for acute back or joint pain SKIN: Negative for rash NEURO: Negative for headaches, seizures, focal neurological deficits All other systems negative. VITAL SIGNS: BP Temp Pulse Resp SpO2 MENTAL STATUS EXAMINATION: Appearance: Appropriately groomed, appears stated age Behavior: Appropriately engaged Psychomotor: No psychomotor agitation Cognition Level of Consciousness: Awake and alert. No fluctuation in wakefulness. Orientation: Grossly oriented Memory: Intact Attention/Concentration: Good Fund of Knowledge: Able to demonstrate an awareness of current events. Mood: Euthymic Affect: Congruent to mood Speech/Language: Appropriate tone, prosody, jacquie, phonetics, and syntax Thought Form: Goal-directed. No loosening of associations. Thought Content: No delusions noted or endorsed. Perceptual Disturbances: Did not appear to respond to auditory stimuli. Safety: Suicidal Ideations: No suicidal ideation, intent or plan. Homicidal Ideations: No homicidal ideation, intent or plan. Insight: Appropriate Judgment: Appropriate I spent a total of 28 minutes on the date of the service [facility] (more content not included)... [facility] 05-24-2022 History of Presen t illness Narrative Images from the original note were not included. PSYC FOLLOW UP - PSYCHIATRIC PROGRESS NOTE DIAGNOSIS: Panic disorder with agoraphobia None GAF: -70-61 Some mild symptoms or some difficulty in social, occupational, or school functioning, but generally functioning pretty well. TREATMENT PLAN: Continue Lexapro at the same dose. Utilize Xanax as needed to help with anxiety and panic symptoms symptoms. Complete monitoring lab work and EKG prior to the next appointment. Contact [facility] to start visits there at least twice a week. Continue individual psychotherapy with current provider. Follow up in 4 to 6 weeks. The effects and side effects of all the medications were reviewed in detail with the patient. PDMP report was reviewed and found to be appropriate without any signs of misuse or diversion. Patient is in agreement with the treatment plan and aware to reach out with any questions, concerns, or worsening of symptoms prior to the next appointment. * CC: Follow up regarding anxiety With the patient consent, visit was performed virtually. I have communicated my name and active licensure. The patient's identity and physical location were verified at the time of this visit. Either the patient or their legal support representative has been informed of the risks and benefits of -- and alternatives to -- treatment through a remote evaluation and consents to proceed with the evaluation remotely. HPI: Mathew Glover is a 27 year old Female with a history of panic disorder presenting today for follow-up. Date of last visit: 03/29/2022 Plan from last visit: Increase Lexapro to address her panic and anxiety symptoms. Utilize Xanax only as needed. Patient did not request a refill at this appointment. Continue individual psychotherapy weekly. Consider the in person IOP at [facility]. Discussed engaging in bedtime yoga to help in improving her sleep quality. Follow up in 2 months Today Mathew shares that she is doing well. Feels that things are getting better in terms of her anxiety and depression. She has been pushing herself more to go outside. She is trying to get herself to stores which was very anxiety provoking before and she is trying to expose herself more to it. She is engaged in psychotherapy every 2 weeks. She has been able to get her car back. We discussed starting the IOP at [facility]. Patient wonders if she would be able to tolerate that. Provided referral information. She is going to make it a goal to call them and try at least 2 days a week. Denies any side effects from the Lexapro increase. Denies any concerns with her sleep or appetite. Drinks beer about 2 days a week. Discussed interaction of Lexapro and alcohol. Interval Progress: Slightly improved Risks and benefits of the medication, including any black box warnings, were discussed with the patient. Social History: See HPI PATIENT DATA: Generalized Anxiety Disorder Scale (ROSS-7) ROSS - 7 SCORES 01/22/2022 03/22/2022 05/24/2022 ROSS-7 Score 12 10 10 (0-4) minimal anxiety, (5-9) mild anxiety, (10-14) moderate anxiety, (15-21) severe anxiety Patient Health Questionnaire (PHQ-9) PHQ-9 01/22/2022 03/22/2022 05/24/2022 Score 9 5 9 (0-4) minimal depression, (5-9) mild depression, (10-14) moderate depression, (15-19) moderately severe depression, (20-27) severe depression ROS: General: Negative for fever, malaise, unintentional weight loss HEENT: Negative for recent changes in vision or hearing, no nasal drainage Respiratory: Negative for cough, wheezing or SOB Cardiovascular: Negative for chest pain GI: Negative for nausea, vomiting, change in bowel habits MUSCULOSKELETAL: Negative for acute back or joint pain SKIN: Negative for rash NEURO: Negative for headaches, seizures, focal neurological deficits All other systems negative. VITAL SIGNS: BP Temp Pulse Resp SpO2 MENTAL STATUS EXAMINATION: Appearance: Appropriately groomed, appears stated age Behavior: Appropriately engaged Psychomotor: No psychomotor agitation Cognition Level of Consciousness: Awake and alert. No fluctuation in wakefulness. Orientation: Grossly oriented Memory: Intact Attention/Concentration: Good Fund of Knowledge: Able to demonstrate an awareness of current events. Mood: Euthymic Affect: Congruent to mood Speech/Language: Appropriate tone, prosody, jacquie, phonetics, and syntax Thought Form: Goal-directed. No loosening of associations. Thought Content: No delusions noted or endorsed. Perceptual Disturbances: Did not appear to respond to auditory stimuli. Safety: Suicidal Ideations: No suicidal ideation, intent or plan. Homicidal Ideations: No homicidal ideation, intent or plan. Insight: Appropriate Judgment: Appropriate I spent a total of 28 minutes on the date of the service which included preparing to see the patient, [id number] patient care, completing clinical documentation, and counseling and educating the patient/family/caregiver, ordering medications/labs. Sara Hernandez APRN.CNP May 24, 2022 10:35 AM This note was partially generated using Sanswire voice recognition system. Note was reviewed for accuracy. There may be minor misspellings or grammar miscues with Sanswire voice recognition. documented in this encounter [facility] 03-29-2022 Note HNO ID: [id number] Author: Sara Hernandez APRN.CNP Service: ? Author Type: Nurse Practitioner Type: Progress Notes Filed: 03/29/2022 10:27 AM Note Text: PSYC FOLLOW UP - PSYCHIATRIC PROGRESS NOTE DIAGNOSIS: Panic disorder with agoraphobia None GAF: -60-51 Moderate symptoms or moderate difficulty in social, occupational or school functioning. TREATMENT PLAN: Increase Lexapro to address her panic and anxiety symptoms. Utilize Xanax only as needed. Patient did not request a refill at this appointment. Continue individual psychotherapy weekly. Consider the in person IOP at [facility]. Discussed engaging in bedtime yoga to help in improving her sleep quality. Follow up in 2 months Medication Update: Lexapro 20 mg - take 1 tablet once daily. Utilize Xanax only as needed. The effects and side effects of all the medications were reviewed in detail with the patient. PDMP report was reviewed and found to be appropriate without any signs of misuse or diversion. Patient is in agreement with the treatment plan and aware to reach out with any questions, concerns, or worsening of symptoms prior to the next appointment. CC: Follow up regarding anxiety With the patient consent, visit was performed virtually. HPI: Mathew Glover is a 27 year old Female with a history of panic disorder presenting today for follow-up. Date of last visit: 01/23/2022 Plan from last visit: Increase Lexapro to address anxiety symptoms. Discontinue Hydroxyzine due to side effects related to morning grogginess. Utilize Xanax as needed for overwhelming episodes of anxiety and panic. Did not request a refill at this visit. Start individual psychotherapy. Has an intake on Friday. Consider in person IOP at [facility] if requiring additional therapeutic support. Encouraged to incorporate more physical activity into her routine. Follow up in 2 months. Today Mathew shares that she is doing well. She has tolerated the increase in Lexapro. Her night sweats have reduced and don't occur every night. Her anxiety has improved since the last visit. She has been talking to a counselor and that has helped. She sees them weekly at [facility]. She is unsure if she is ready for IOP yet. She still struggles going out to stores. She has pushed herself more. Experiences panic symptoms when she goes. She does not have a car in the last month due to it being in the shop. She would like to do some more exposure therapy. Discussed increasing Lexapro to help more with anxiety and panic symptoms. She has only been using her xanax once a week to manage her panic symptoms. Denies changes in her appetite. She struggles with falling and staying asleep. She is getting around 5 to 6 hours of sleep. She wakes up in the middle of the night and then it is hard for her to go back to sleep. She has tried stretching at night and noticed it helping mildly. Open to trying bedtime yoga to help with stretching and relaxation. Interval Progress: Slightly improved Risks and benefits of the medication, including any black box warnings, were discussed with the patient. Social History: See HPI PATIENT DATA: Generalized Anxiety Disorder Scale (ROSS-7) ROSS - 7 SCORES 12/19/2021 01/22/2022 03/22/2022 ROSS-7 Score 20 12 10 (0-4) minimal anxiety, (5-9) mild anxiety, (10-14) moderate anxiety, (15-21) severe anxiety Patient Health Questionnaire (PHQ-9) PHQ-9 12/19/2021 01/22/2022 03/22/2022 Score 17 9 5 (0-4) minimal depression, (5-9) mild depression, (10-14) moderate depression, (15-19) moderately severe depression, (20-27) severe depression ROS: General: Negative for fever, malaise, unintentional weight loss HEENT: Negative for recent changes in vision or hearing, no nasal drainage Respiratory: Negative for cough, wheezing or SOB Cardiovascular: Negative for chest pain GI: Negative for nausea, vomiting, change in bowel habits MUSCULOSKELETAL: Negative for acute back or joint pain SKIN: Negative for rash NEURO: Negative for headaches, seizures, focal neurological deficits All other systems negative. VITAL SIGNS: BP Temp Pulse Resp SpO2 MENTAL STATUS EXAMINATION: Appearance: Appropriately groomed, appears stated age Behavior: Appropriately engaged Psychomotor: No psychomotor agitation Cognition Level of Consciousness: Awake and alert. No fluctuation in wakefulness. Orientation: Grossly oriented Memory: Intact Attention/Concentration: Good Fund of Knowledge: Able to demonstrate an awareness of current events. Mood: Anxious Affect: Congruent to mood Speech/Language: Appropriate tone, prosody, jacquie, phonetics, and syntax Thought Form: Goal-directed. No loosening of associations. Thought Content: No delusions noted or endorsed. Perceptual Disturbances: Did not appear to respond to auditory stimuli. Safety: Suicidal Ideations: No suicidal ideation, intent or plan. Homicidal Ideations: No homicidal leighton (more content not included)... [facility] 03-29-2022 Instructions Sara Hernandez APRN.CNP - 03/29/2022 10:26 AM EST Mohan Carmona, It was good to talk with you today. Below is a summary of the plan that we discussed during your appointment for reference. Of course, if you have any questions or concerns do not hesitate to reach out to me via a message or call. Sara Weinstein APRN.CNP PLAN AND FOLLOW UP: YOU SHOULD SEEK IMMEDIATE MEDICAL ATTENTION AT THE NEAREST EMERGENCY DEPARTMENT OR BY CALLING 911, IF ANY OF THE FOLLOWING OCCURS: - New or worsening thoughts of harming yourself (suicidal thoughts) or others (homicidal thoughts) - Not feeling safe at home or worrying about your ability to remain safe at home If you are having thoughts of harming yourself or others, then you can: - Call the National Suicide Hotline at 4-436-HTGSRLI ( ) or 1-403-563-TALK (3251) - Text 8COPE to 923625 Medication Update: Lexapro 20 mg - take 1 tablet once daily. Utilize Xanax only as needed. Next appointment: --Schedule in 6 to 8 weeks or sooner if needed -- You may call the department appointment line at [phone] to schedule your appointment. -- Please call my nurse Shakila at [phone] or send me a message in [employer] with any questions or concerns between appointments. documented in this encounter [facility] 03-29-2022 History of Presen t illness Narrative Images from the original note were not included. PSYC FOLLOW UP - PSYCHIATRIC PROGRESS NOTE DIAGNOSIS: Panic disorder with agoraphobia None GAF: -60-51 Moderate symptoms or moderate difficulty in social, occupational or school functioning. TREATMENT PLAN: Increase Lexapro to address her panic and anxiety symptoms. Utilize Xanax only as needed. Patient did not request a refill at this appointment. Continue individual psychotherapy weekly. Consider the in person IOP at [facility]. Discussed engaging in bedtime yoga to help in improving her sleep quality. Follow up in 2 months Medication Update: Lexapro 20 mg - take 1 tablet once daily. Utilize Xanax only as needed. The effects and side effects of all the medications were reviewed in detail with the patient. PDMP report was reviewed and found to be appropriate without any signs of misuse or diversion. Patient is in agreement with the treatment plan and aware to reach out with any questions, concerns, or worsening of symptoms prior to the next appointment. CC: Follow up regarding anxiety With the patient consent, visit was performed virtually. HPI: Mathew Glover is a 27 year old Female with a history of panic disorder presenting today for follow-up. Date of last visit: 01/23/2022 Plan from last visit: Increase Lexapro to address anxiety symptoms. Discontinue Hydroxyzine due to side effects related to morning grogginess. Utilize Xanax as needed for overwhelming episodes of anxiety and panic. Did not request a refill at this visit. Start individual psychotherapy. Has an intake on Friday. Consider in person IOP at [facility] if requiring additional therapeutic support. Encouraged to incorporate more physical activity into her routine. Follow up in 2 months. Today Mathew shares that she is doing well. She has tolerated the increase in Lexapro. Her night sweats have reduced and don't occur every night. Her anxiety has improved since the last visit. She has been talking to a counselor and that has helped. She sees them weekly at [facility]. She is unsure if she is ready for IOP yet. She still struggles going out to stores. She has pushed herself more. Experiences panic symptoms when she goes. She does not have a car in the last month due to it being in the shop. She would like to do some more exposure therapy. Discussed increasing Lexapro to help more with anxiety and panic symptoms. She has only been using her xanax once a week to manage her panic symptoms. Denies changes in her appetite. She struggles with falling and staying asleep. She is getting around 5 to 6 hours of sleep. She wakes up in the middle of the night and then it is hard for her to go back to sleep. She has tried stretching at night and noticed it helping mildly. Open to trying bedtime yoga to help with stretching and relaxation. Interval Progress: Slightly improved Risks and benefits of the medication, including any black box warnings, were discussed with the patient. Social History: See HPI PATIENT DATA: Generalized Anxiety Disorder Scale (ROSS-7) ROSS - 7 SCORES 12/19/2021 01/22/2022 03/22/2022 ROSS-7 Score 20 12 10 (0-4) minimal anxiety, (5-9) mild anxiety, (10-14) moderate anxiety, (15-21) severe anxiety Patient Health Questionnaire (PHQ-9) PHQ-9 12/19/2021 01/22/2022 03/22/2022 Score 17 9 5 (0-4) minimal depression, (5-9) mild depression, (10-14) moderate depression, (15-19) moderately severe depression, (20-27) severe depression ROS: General: Negative for fever, malaise, unintentional weight loss HEENT: Negative for recent changes in vision or hearing, no nasal drainage Respiratory: Negative for cough, wheezing or SOB Cardiovascular: Negative for chest pain GI: Negative for nausea, vomiting, change in bowel habits MUSCULOSKELETAL: Negative for acute back or joint pain SKIN: Negative for rash NEURO: Negative for headaches, seizures, focal neurological deficits All other systems negative. VITAL SIGNS: BP Temp Pulse Resp SpO2 MENTAL STATUS EXAMINATION: Appearance: Appropriately groomed, appears stated age Behavior: Appropriately engaged Psychomotor: No psychomotor agitation Cognition Level of Consciousness: Awake and alert. No fluctuation in wakefulness. Orientation: Grossly oriented Memory: Intact Attention/Concentration: Good Fund of Knowledge: Able to demonstrate an awareness of current events. Mood: Anxious Affect: Congruent to mood Speech/Language: Appropriate tone, prosody, jacquie, phonetics, and syntax Thought Form: Goal-directed. No loosening of associations. Thought Content: No delusions noted or endorsed. Perceptual Disturbances: Did not appear to respond to auditory stimuli. Safety: Suicidal Ideations: No suicidal ideation, intent or plan. Homicidal Ideations: No homicidal ideation, intent or plan. Insight: Appropriate Judgment: Appropriate I spent a total of 28 minutes on the date of the service which included preparing to see the patient, [id number] patient care, completing clinical documentation, and counseling and educating the patient/family/caregiver, ordering medications/labs. Sara Hernandez APRN.CNP March 29, 2022 10:02 AM This note was partially generated using [employer] voice recognition system. Note was reviewed for accuracy. There may be minor misspellings or grammar miscues with [employer] voice recognition. documented in this encounter [facility] 01-23-2022 Instructions Sara Hernandez APRN.CNP - 01/23/2022 9:48 AM EST Mohan Carmona, It was good to talk with you today. Below is a summary of the plan that we discussed during your appointment for reference. Of course, if you have any questions or concerns do not hesitate to reach out to me via a message or call. Sara Weinstein APRN.CNP PLAN AND FOLLOW UP: YOU SHOULD SEEK IMMEDIATE MEDICAL ATTENTION AT THE NEAREST EMERGENCY DEPARTMENT OR BY CALLING 911, IF ANY OF THE FOLLOWING OCCURS: - New or worsening thoughts of harming yourself (suicidal thoughts) or others (homicidal thoughts) - Not feeling safe at home or worrying about your ability to remain safe at home If you are having thoughts of harming yourself or others, then you can: - Call the National Suicide Hotline at 9-308-WTSMEJM ( ) or 1-324-843-TALK (0538) - Text 3IOPE to 356810 Medication Update: Lexapro 10 mg - take 1 and half tablet once daily. Continue Xanax at the same dose as needed. Next appointment: --Schedule in 2 months or sooner if needed -- You may call the department appointment line at [phone] to schedule your appointment. -- Please call my nurse Shakila at [phone] or send me a message in [employer] with any questions or concerns between appointments. documented in this encounter [facility] 01-23-2022 History of Presen t illness Narrative Images from the original note were not included. PSYC FOLLOW UP - PSYCHIATRIC PROGRESS NOTE DIAGNOSIS: Panic disorder with agoraphobia None GAF: -60-51 Moderate symptoms or moderate difficulty in social, occupational or school functioning. TREATMENT PLAN: Increase Lexapro to address anxiety symptoms. Discontinue Hydroxyzine due to side effects related to morning grogginess. Utilize Xanax as needed for overwhelming episodes of anxiety and panic. Did not request a refill at this visit. Start individual psychotherapy. Has an intake on Friday. Consider in person IOP at [facility] if requiring additional therapeutic support. Encouraged to incorporate more physical activity into her routine. Follow up in 2 months. Medication Update: Lexapro 10 mg - take 1 and half tablet once daily. Continue Xanax at the same dose as needed. The effects and side effects of all the medications were reviewed in detail with the patient. She is in agreement with the treatment plan and aware to reach out with any questions, concerns, or worsening of symptoms prior to the next appointment. PDMP report was reviewed and found to be appropriate without any signs of misuse or diversion. CC: Anxiety HPI: Mathew Glover is a 26 year old Female with a history of panic disorder with agoraphobia presenting today for follow-up. Date of last visit: 12/19/2021 Plan from last visit: Stop Prozac due to side effects and lack of efficacy. Utilize Lexapro instead to help with panic symptoms. Continue to Utilize Xanax only as needed for overwhelming episodes of anxiety. Increase Hydroxyzine to help with anxiety and sleep difficulties. Schedule an appointment for individual psychotherapy. Consider the inperson IOP at [facility]. Practice the 1 to 5 breathing technique. Incorporate yoga into her routine to help with energy and anxiety. Today Mathew shares that her mood is better. She is feeling happier. She has tolerated Lexapro. Notices that she experiences some night sweats. She has noticed improvement in her anxiety too. She has been able to decrease the use of the Xanax. Continues to struggle with anxiety and panic symptoms. She was anxious coming to the appointment by herself. She has been interested again in engaging in crafts. She has been feeling groggy and tired with the increase in hydroxyzine. Continues to struggle with sleep without it. Has used Zquil in the past and that has been beneficial. She has a history of pituitary tumor and her periods are irregular. She has not been able to incorporate more physical activity in her daily routine as much as she would have liked. Identifies this weather as a barrier. She has been able to find a therapist. Will start working with the therapist next week at [facility]. Interval Progress: Improved Risks and benefits of the medication, including any black box warnings, were discussed with the patient. Social History: See HPI PATIENT DATA: Generalized Anxiety Disorder Scale (ROSS-7) ROSS - 7 SCORES 12/04/2021 12/19/2021 01/22/2022 ROSS-7 Score 19 20 12 (0-4) minimal anxiety, (5-9) mild anxiety, (10-14) moderate anxiety, (15-21) severe anxiety Patient Health Questionnaire (PHQ-9) PHQ-9 12/04/2021 12/19/2021 01/22/2022 Score 14 17 9 (0-4) minimal depression, (5-9) mild depression, (10-14) moderate depression, (15-19) moderately severe depression, (20-27) severe depression ROS: General: Negative for fever, malaise, unintentional weight loss HEENT: Negative for recent changes in vision or hearing, no nasal drainage Respiratory: Negative for cough, wheezing or SOB Cardiovascular: Negative for chest pain GI: Negative for nausea, vomiting, change in bowel habits MUSCULOSKELETAL: Negative for acute back or joint pain SKIN: Negative for rash NEURO: Negative for headaches, seizures, focal neurological deficits All other systems negative. VITAL SIGNS: BP 102/66 (01/23/22920) Temp Pulse 80 (01/23/22920) Resp SpO2 MENTAL STATUS EXAMINATION: Appearance: Appropriately groomed, appears stated age Behavior: Appropriately engaged Psychomotor: No psychomotor agitation Cognition Level of Consciousness: Awake and alert. No fluctuation in wakefulness. Orientation: Grossly oriented Memory: Intact Attention/Concentration: Good Fund of Knowledge: Able to demonstrate an awareness of current events. Mood: Anxious Affect: Congruent to mood Speech/Language: Appropriate tone, prosody, jacquie, phonetics, and syntax Thought Form: Goal-directed. No loosening of associations. Thought Content: No delusions noted or endorsed. Perceptual Disturbances: Did not appear to respond to auditory stimuli. Safety: Suicidal Ideations: No suicidal ideation, intent or plan. Homicidal Ideations: No homicidal ideation, intent or plan. Insight: Appropriate Judgment: Appropriate I spent a total of 26 minutes on the date of the service which included preparing to see the patient, [id number] patient care, completing clinical documentation, and counseling and educating the patient/family/caregiver, ordering medications/labs. Sara Hernandez APRN.CNP January 23, 2022 9:23 AM This note was partially generated using [employer] voice recognition system. Note was reviewed for accuracy. There may be minor misspellings or grammar miscues with [employer] voice recognition. documented in this encounter [facility] 12-19-2021 Instructions Sara Hernandez APRN.CNP - 12/19/2021 12:01 PM EDT Mohan Carmona, It was good to talk with you today. Below is a summary of the plan that we discussed during your appointment for reference. Of course, if you have any questions or concerns do not hesitate to reach out to me via a message or call. Js, Sara Hernandez APRN.ALONZO PLAN AND FOLLOW UP: YOU SHOULD SEEK IMMEDIATE MEDICAL ATTENTION AT THE NEAREST EMERGENCY DEPARTMENT OR BY CALLING 911, IF ANY OF THE FOLLOWING OCCURS: - New or worsening thoughts of harming yourself (suicidal thoughts) or others (homicidal thoughts) - Not feeling safe at home or worrying about your ability to remain safe at home If you are having thoughts of harming yourself or others, then you can: - Call the National Suicide Hotline at 8-251-FQPZXSC ( ) or 8-003-988-TALK (1339) - Text 4HOPE to 751062 Medication Update: Stop Prozac. 2. Lexapro (escitalopram) 10 mg - take 1/2 tablet for 2 days and then take 1 tablet once daily after that 3. Hydroxzyine 50 mg - take 1 tablet at bedtime. 4. Utilize Xanax only as needed for overwhelming episodes of panic. Next appointment: --Schedule in 4 weeks or sooner if needed -- You may call the department appointment line at [phone] to schedule your appointment. -- Please call my nurse Shakila at [phone] or send me a message in [employer] with any questions or concerns between appointments. documented in this encounter [facility] 12-19-2021 History of Presen t illness Narrative Images from the original note were not included. PSYC FOLLOW UP - PSYCHIATRIC PROGRESS NOTE DIAGNOSIS: Panic disorder with agoraphobia None GAF: -50-41 Serious symptoms or any serious impairment in social, occupational or school functioning. TREATMENT PLAN: Stop Prozac due to side effects and lack of efficacy. Utilize Lexapro instead to help with panic symptoms. Continue to Utilize Xanax only as needed for overwhelming episodes of anxiety. Increase Hydroxyzine to help with anxiety and sleep difficulties. Schedule an appointment for individual psychotherapy. Consider the inperson IOP at [facility]. Practice the 1 to 5 breathing technique. Incorporate yoga into her routine to help with energy and anxiety. Medication Update: Stop Prozac. 2. Lexapro (escitalopram) 10 mg - take 1/2 tablet for 2 days and then take 1 tablet once daily after that 3. Hydroxzyine 50 mg - take 1 tablet at bedtime. 4. Utilize Xanax only as needed for overwhelming episodes of panic. The effects and side effects of all the medications were reviewed in detail with the patient. She is in agreement with the treatment plan and aware to reach out with any questions, concerns, or worsening of symptoms prior to the next appointment. PDMP report was reviewed and found to be appropriate without any signs of misuse or diversion. CC: Anxiety HPI: Mathew Glover is a 26 year old Female with a history of panic disorder with agoraphobia presenting today for follow-up. Date of last visit: 10/23/2021 Plan from last visit: Start Prozac 20 mg to help with panic and anxiety symptoms. Discontinue Buspar due to lack of efficacy and inability to tolerate during the day time. Utilize Xanax only as needed for increased episodes of panic Take 20 mg of Atarax to help with anxiety and sleep at bedtime Follow up in a month Today Mathew was accompanied for this appointment by her boyfriend. Mathew feels that her anxiety has gotten worse since her last visit. She is less tired during the day. She feels more awake but not motivated. She has noticed that she has some burning in her arm at times. She feels that she is not being as creative as she was. Continues to struggle with panic attacks. Unable to go to stores alone. Able to go with her boyfriend's support if he is present. She is waking up shaky. Hydroxyzine at this low dose is not helping with her sleep like it used it. Benadryl has been more helpful. Does not wish to try a higher dose of Prozac and would rather try another SSRI. Uses the Xanax as needed to manage her panic attacks. Reports somatic symptoms of anxiety such as sweating, shakiness, difficulty swallowing, and heart palpitations. She has been trying breathing exercises. Discussed working on the 1 to 5 breathing exercise and incorporating yoga. Denies concerns with appetite. Interval Progress: Slightly worse Risks and benefits of the medication, including any black box warnings, were discussed with the patient. Social History: See HPI PATIENT DATA: Generalized Anxiety Disorder Scale (ROSS-7) ROSS - 7 SCORES 12/04/2021 12/04/2021 12/19/2021 ROSS-7 Score 19 19 20 (0-4) minimal anxiety, (5-9) mild anxiety, (10-14) moderate anxiety, (15-21) severe anxiety Patient Health Questionnaire (PHQ-9) PHQ-9 12/04/2021 12/04/2021 12/19/2021 Score 14 14 17 (0-4) minimal depression, (5-9) mild depression, (10-14) moderate depression, (15-19) moderately severe depression, (20-27) severe depression ROS: General: Negative for fever, malaise, unintentional weight loss HEENT: Negative for recent changes in vision or hearing, no nasal drainage Respiratory: Negative for cough, wheezing or SOB Cardiovascular: Negative for chest pain GI: Negative for nausea, vomiting, change in bowel habits MUSCULOSKELETAL: Negative for acute back or joint pain SKIN: Negative for rash NEURO: Negative for headaches, seizures, focal neurological deficits All other systems negative. VITAL SIGNS: BP 112/70 (12/19/21 1117) Temp Pulse 80 (12/19/21 1117) Resp SpO2 MENTAL STATUS EXAMINATION: Appearance: Appropriately groomed, appears stated age Behavior: Appropriately engaged Psychomotor: No psychomotor agitation Cognition Level of Consciousness: Awake and alert. No fluctuation in wakefulness. Orientation: Grossly oriented Memory: Intact Attention/Concentration: Good Fund of Knowledge: Able to demonstrate an awareness of current events. Mood: Anxious Affect: Congruent to mood Speech/Language: Appropriate tone, prosody, jacquie, phonetics, and syntax Thought Form: Goal-directed. No loosening of associations. Thought Content: No delusions noted or endorsed. Perceptual Disturbances: Did not appear to respond to auditory stimuli. Safety: Suicidal Ideations: No suicidal ideation, intent or plan. Homicidal Ideations: No homicidal ideation, intent or plan. Insight: Appropriate Judgment: Appropriate I spent a total of 36 minutes on the date of the service which included preparing to see the patient, [id number] patient care, completing clinical documentation, and counseling and educating the patient/family/caregiver, ordering medications/labs. Sara Hernandez APRN.HOME HEALTH RN December 19, 2021 11:18 AM This note was partially generated using [employer]wire voice recognition system. Note was reviewed for accuracy. There may be minor misspellings or grammar miscues with [employer] voice recognition. documented in this encounter [facility] 11-13-2021 Instructions Elizabeth Donald MD - 11/13/2021 7:39 AM EDT Tinea Versicolor Introduction Tinea versicolor is a common skin condition due to overgrowth of a normal skin surface yeast. This overgrowth results in uneven skin color and scaling that can be unsightly and sometimes itch. The yeast normally lives in the pores of the skin and thrives in oily areas such as the neck, upper chest, and back. What does tinea versicolor look like? Tinea versicolor has small, scaly [id number] or diallo-to-dark spots which can be scattered over the upper arms, chest and back. They may sometimes appear on the neck and the face. On light skin, tinea versicolor may be faint or can appear as diallo-to-pink spots, while on dark skin tinea versicolor may be light or dark. The fungus grows slowly and prevents the skin from tanning normally. As the rest of the skin tans in the sun, the pale spots, which are affected by the yeast, become more noticeable, especially on dark skin. What are the symptoms? Tinea versicolor usually produces few symptoms. Occasionally, there is some slight itching that is more intense when a person gets hot. Who gets this rash? Most people get tinea versicolor when they are teenagers or young adults. It is rare in the elderly and children, except in tropical climates where it can occur at any age. Both dark and light skinned people are equally prone to its development. People with oily skin may be more susceptible than those with naturally dry skin. The yeast is normally present in small numbers on everyone's skin. Anyone can develop an overgrowth of yeast. During the summer months when the temperature and humidity are high, the yeast can increase. The excess yeast on the skin prevents the normal pigmentation process, resulting in light and dark spots. In tropical countries with continuous high heat and high humidity, people can have these spots year round. In other climates, the spots generally fade in the cooler and geological drafter months of the year. Why some people get tinea versicolor and others do not is unclear. In tropical countries with continuous high heat and high humidity, people can have these spots year round. In other climates, the spots generally fade in the cooler and geological drafter months of the year. How is it diagnosed? Although the light or dark colored spots can resemble other skin conditions, tinea versicolor can be easily recognized by a porcelain enameling supervisor. In most cases, the appearance of the skin is diagnostic, but a simple examination of the fine scales scraped from the skin can confirm the diagnosis. Scales are lightly scraped onto a slide and examined under a microscope for the presence of the yeast. A special light may help to make the diagnosis by showing a yellow green color where the skin is affected. How is it treated? Tinea versicolor is treated with topical or oral medications. Topical treatment includes special cleansers including some shampoos, creams, or lotions applied directly to the skin. Several oral medications have been used successfully to treat tinea versicolor. Because of possible side effects, or interactions with other medications, the use of these prescription medicines should be supervised by your porcelain enameling supervisor. After any form of treatment, the uneven color of the skin may remain several months after the yeast has been eliminated until the skin repigments normally. Tinea versicolor may recur. Special lotions or washes may decrease episodes when used once or twice a month, especially during warm humid months of the year. Each patient is treated by the porcelain enameling supervisor according to the severity and location of the disease, the climate, and the desire of the patient. It s important to remember that the yeast is easy to kill, but it can take weeks or months for the skin to regain its normal color. documented in this encounter [facility] 11-13-2021 History of Presen t illness Narrative Department of Dermatology Elizabeth Donald MD 11/13/2021 CC: This patient is a 26 year old female. Patient presents with: Dermatitis: Neck, back ,abdomen flaky spots that itchy x 3-4 months HPI: Presents today along with mom for initial evaluation of a rash on the neck, back, and abdomen that is itchy and has been going on for the past 3-4 months. -Pt has no other concerns at this time. -Personal history of skin cancer: No -History of blistering sunburns:No -Family history of skin cancer: No -History of joint replacements: No -Pacemaker or defibrillator: No -Need for antibiotics before dental procedures: No SOC: Social History Tobacco Use Smoking status: Never Smokeless tobacco: Never Substance Use Topics Alcohol use: Yes Comment: occasionally Drug use: No MEDS: Current outpatient prescriptions: Current Outpatient Medications on File Prior to Visit Medication Sig hydrOXYzine HCl (ATARAX) 10 mg tablet Take 1 tablet by mouth three times daily as needed for anxiety. FLUoxetine (PROZAC) 20 mg capsule Take 1 capsule by mouth once daily. ALPRAZolam (XANAX) 0.25 mg tablet Take 1 tablet by mouth once daily as needed (panic symptoms) for up to 30 days. cabergoline (DOSTINEX) 0.5 mg tablet Take 1 tablet by mouth every Friday and Friday. No current facility-administered medications on file prior to visit. ALLERGY: ALLERGIES Allergen Reactions Bees Anaphylaxis PAST MEDICAL HISTORY: No chronic skin disease or skin cancer FAMILY HISTORY: No chronic skin disease or skin cancer REVIEW OF SYSTEMS: Patient feels well and denies any recent fevers, chills, or nightsweats. Skin: rash PHYSICAL EXAM: The patient is a pleasant female in no distress. Patient is healthy, well developed, well nourished and in otherwise good health. she is alert and oriented x 3. A skin exam was done of the chest, back, abdomen, bilateral upper extremities, and bilateral lower extremities. Hypopigmented scaly thin plaques on neck, chest, upper back Impression/Assessment/Plan Tinea versicolor - Discussed the diagnosis, pathogenesis, and expected clinical course. Tinea versicolor is a superficial mycosis due to overgrowth of malessezia species and may cause hypo- or hyperpigmented rash, typically on the chest and back. It is most commonly seen in warm climates or during the summer months and may recur after clearance. - Start ketoconazole shampoo to the chest and back 3x weekly. Leave on 5-10 minutes then rinse. Rx ketoconazole 2% cream BID to affected areas on face/neck/body. - Reviewed that pigmentation may take months to normalize even after clearance of yeast - Reviewed possible recurrence and shampoo should be continued for maintenance -ordered AST/ALT today, if WNL will prescribe fluconazole 200 mg once weekly x 4 weeks. Discussed side effects including liver toxicity, increase in QTc interval. The patient is seen and examined by Dr. Donald and the following reflects his/her service. Scribed by Marisela Martines CMA I, Elizabeth Donald MD, agree with the Chief Complaint, ROS, and Past Histories independently gathered by the clinical ground support equipment assembler, Marisela Martines CMA, and the remaining scribed note accurately describes my personal service to the patient. November 13, 2021 7:28 AM Marisela Donald MD documented in this encounter [facility] 09-21-2021 Instructions Sara Hernandez APRN.[facility] - 09/21/2021 9:35 AM EDT Mohan Carmona, It was good to meet and talk with you today. Below is a summary of the plan that we discussed during your appointment for reference. Of course, if you have any questions or concerns do not hesitate to reach out to me via a message or call. Best, Sara Hernandez SCREW MACHINE OPERATOR SWISS TYPE.HOME HEALTH RN PLAN AND FOLLOW UP: YOU SHOULD SEEK IMMEDIATE MEDICAL ATTENTION AT THE NEAREST EMERGENCY DEPARTMENT OR BY CALLING 911, IF ANY OF THE FOLLOWING OCCURS: - New or worsening thoughts of harming yourself (suicidal thoughts) or others (homicidal thoughts) - Not feeling safe at home or worrying about your ability to remain safe at home If you are having thoughts of harming yourself or others, then you can: - Call the National Suicide Hotline at 6-402-SQVXCSN ( ) or 0-781-722-TALK (4393) - Text 4HBGM to 672945 Medication Update: - Prozac (fluoxetine) 10 mg - take 1 capsule once daily. - Xanax 0.25 mg - take 1 tablet once daily only as needed for severe panic symptoms. - Hydroxyzine 10 mg - take 1 tablet at bedtime to help with anxiety and sleep difficulties. - Continue Buspar at the same dose. Next appointment: October 19 at 2:30 pm Virtual -- You may call the department appointment line at [phone] to schedule your appointment. -- Please call my nurse Shakila at [phone] or send me a message in [employer] with any questions or concerns between appointments. documented in this encounter [facility] 09-21-2021 History of Presen t illness Narrative Images from the original note were not included. PSYC NEW - PSYCHIATRIC ASSESSMENT Patient was seen for an initial evaluation. With the patient consent, visit was performed virtually. All information is from Patient report except when noted. This evaluation is NOT intended for forensic, disability or child custody purposes. AGE: [age] year old RACE: White MARITAL STATUS: Significant other. The relationship has been on and off for 6 years. They are understanding of her anxiety concerns. Denies stress in the relationship. Does not have any children. OCCUPATION: Unemployed, not seeking work. She would like to work but anxiety prevents her from working. Her best friend started a [employer] business and she has asked the patient to come work for her. She did that for a short time but then her friend moved. REFERRAL SOURCE: PCP - Dr. Cash CHIEF COMPLAINT: I just have really bad anxiety and I am trying to get that under control. HPI: Today Mathew shares that I have always had pretty bad anxiety especially socially . Her best friend 5 years ago. That caused the worsening of symptoms. She had a hard time traveling in cars as she felt trapped. It has gotten better. A couple years ago her anxiety worsened due to the COVID-19 pandemic. It is hard for her to talk to others and leave the house. Does find herself engaging in catastrophic thinking. Does report physical symptoms of anxiety such as shaking, difficulty breathing, heart palpitations, and feeling like she would pass out. When she is having a panic attack, it is hard for her to swallow or eat. Mathew shares that she has tried to expose herself to her fears such as talking to others, going in the store with others, and breathing techniques. It is very hard for her to talk to someone and virtual visits can be challenging but are easier than in person visits. Last talked to Dr.Susan Alma Boogie a month ago. Zoloft was prescribed by her PCP but it made her anxious and depressed at the dose of 50 mg. Currently taking buspar 5 mg BID. Feels that she has been on the Buspar for a while but it makes her dizzy. I am scared to take another medication like Zoloft . Hydroxyzine makes her feel tired and does not help if she is having a panic attack. Has taken xanax in the past to help with panic attacks. Linn that it took an hour to start working. She would use it to decrease her anxiety about going to appointments. Panic attacks occurs about 2 times a week. She knows that sleep impacts her panic symptoms. Sleep: difficulty staying asleep, difficulty falling asleep. Hydroxyzine does help with her sleep difficulties. Interest: Interest but anxiety interferes and then her interest decreases Guilt: a bit - feels guilty that she is not able to be a good friend by showing up for baby showers and helping her friends. Energy: low Concentration: poor Appetite: good Psychomotor Activity: psychomotor activity was WNL. 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 Self Mutilation: Denies PAST MEDICAL HISTORY Diagnosis Date Adjustment disorder with anxious mood 01/12/2016 ROSS (generalized anxiety disorder) 01/26/2020 History of chicken pox reported at age 1 Panic disorder without agoraphobia 01/12/2016 Varicella reported at age 1 PAST SURGICAL HISTORY Procedure Laterality Date TONSILLECTOMY & ADENOIDECTOMY <AGE 12 age 5 Current Outpatient Medications Medication Sig Dispense Refill busPIRone (BUSPAR) 5 mg tablet Take 1 tablet by mouth twice daily. 60 tablet 5 hydrOXYzine HCl (ATARAX) 10 mg tablet Take 1 tablet by mouth three times daily as needed for Anxiety. 90 tablet 1 cabergoline (DOSTINEX) 0.5 mg tablet Take 1 tablet by mouth every Friday and Friday. 30 tablet 3 No current facility-administered medications for this visit. VITAL SIGNS: There were no vitals filed for this visit. ROS: All other systems negative. PSYCHIATRIC HISTORY: Prior Diagnosis: Anxiety Disorder Prior Provider: No prior psychiatrist Therapist: Previously followed by Dr. Stefania Boogie Current Skills Trainer: no Last Hospitalization: Denies hospitalization. ECT: no Previous Discontinued Psychiatric Med Trials: See HPI SUBSTANCE USE HISTORY: Nicotine: None Caffeine: Coffee, 3 cups/month Alcohol: 2 times a week. Drinks 3 beers each time. Marijuana: Has tried it before 3 years ago but it gave her panic attacks. Cocaine: No history of use or dependence Opiods: No history of use or dependence SPIRITUALITY: None PFSH: Mathew Glover is the oldest of 2 siblings. Okay relationship with brother. The patient was born and raised in [place], [place]. She completed High school. She described her childhood as stressful. She did not get along with her mother. They used to argue a lot. She got kicked out at the age of 17. She then moved in with her boyfriend. Her relationship with mother has improved. Her relationship with dad is okay. The patient lives with her boyfriend. She has a dog. Service: None Legal: Pt. denied any past legal history FAMILY PSYCHIATRIC HISTORY: Dad- Anxiety Brother- Anxiety Mother - Anxiety PATIENT DATA: Generalized Anxiety Disorder Scale (ROSS-7) ROSS - 7 SCORES 09/21/2021 ROSS-7 Score 21 (0-4) minimal anxiety, (5-9) mild anxiety, (10-14) moderate anxiety, (15-21) severe anxiety Patient Health Questionnaire (PHQ-9) PHQ-9 01/17/2020 04/19/2020 09/21/2021 Score 12 10 11 (0-4) minimal depression, (5-9) mild depression, (10-14) moderate depression, (15-19) moderately severe depression, (20-27) severe depression PROMIS Global Health PROMIS Global Health - (T-Scores - the mean of general population = 50. Five points is a clinically meaningful difference.) 01/17/2020 09/21/2021 Physical T-Score 50.8 42.3 Mental T-Score 31.3 21.2 MENTAL STATUS EXAMINATION: Appearance: Casually dressed and Appears younger than stated age Behavior: Behaves appropriately during the encounter Social relatedness: Anxious/Nervousness Speech/Language: The patient demonstrates appropriate tone, prosody, jacquie, phonetics, and syntax Mood: Anxious Affect: Full and appropriate to topic Orientation: Person, Place, Time and Situation Associations: Intact and linear Hallucinations: None Delusions: None Suicidal Ideation: No suicidal ideation, intent or plan. Homicidal Ideation: No homicidal ideation, intent or plan. Insight: Appropriate Judgment: Appropriate DIAGNOSIS: PRIMARY: Anxiety Disorder Panic Disorder - With Agoraphobia SECONDARY: None GAF: -50-41 Serious symptoms or any serious impairment in social, occupational or school functioning. PLAN: 1. Start Prozac to help with her panic symptoms. 2. Utilize xanax only as needed for increased episodes of panic. 3. Continue Buspar at the same dose. Consider discontinuing this at the next appointment if patient is able to tolerate Prozac. 4. Encouraged patient to utilize hydroxyzine at bedtime to help with her sleep difficulties. Medication Update: - Prozac (fluoxetine) 10 mg - take 1 capsule once daily. - Xanax 0.25 mg - take 1 tablet once daily only as needed for severe panic symptoms. - Hydroxyzine 10 mg - take 1 tablet at bedtime to help with anxiety and sleep difficulties. - Continue Buspar at the same dose. The effects and side effects of all the medications were reviewed in detail with the patient. She is in agreement with the treatment plan and aware to reach out with any questions, concerns, or worsening of symptoms prior to the next appointment. PDMP report was reviewed and found to be appropriate without any signs of misuse or diversion. DISPOSITION: Follow up in 4 weeks. I spent a total of 90 minutes on the date of the service which included preparing to see the patient, [id number] patient care, completing clinical documentation, obtaining and/or reviewing separately obtained history, counseling and educating the patient/family/caregiver, ordering medications, tests, or procedures, communicating with other HCPs (not separately reported), independently interpreting results (not separately reported), and communicating results to the patient/family/caregiver. ADD ON PSYCHOTHERAPY CODE : No SIGNATURE: Sara Hernandez APRN.CNP PATIENT NAME: Mathew Glover DATE: September 21, 2021 TIME: 8:35 AM PAGER : documented in this encounter [facility] 08-22-2021 Miscellaneous Notes BEHAVIORAL HEALTH SOCIAL WORK CONSULT NOTE Service Date: August 22, 2021 Patient was identified by name and Patient: Mathew [place] [id number] (home) [phone] (cell) PCP: Kyleigh Cash MD [address] [place] [id number] Patient identified for [facility] from: PCP (Zhou Minaya) Reason for referral: Resources Behavioral Health Resources: Psychiatry med management (anxiety) [facility] encounter type: Telephone Encounter Assessment: [facility] received a consult from Zhou Minaya, for psychiatry, to address/tx anxiety [facility] reviewed Pt's chart/insurance [facility] contacted Pt -Pt was seen by Stefania Boogie PhD on 06-27-21 -[facility] contacted Sara Hernandez CNP, due to concerns insurance may not pay for assessment if Pt had been evaluated by PhD -Sara stated Pt can be directly schedule with her SW contacted HO Jhaveri, and requested she contact Pt to sched an appt with Sara Hernandez CNP -Pt reported she saw counselor x1 -talked on the phone another time -does not have f/u appt due to her anxiety -would like to cont with counselor -interested in seeing psych spindle repairer for meds Pt was informed HO Jhaveri, will be contacting her to sched appt with psych [facility]. No further contact is indicated at this time -sent [facility] for Pt to have contact info if she needs further assistance. Medications: Current Outpatient Medications on File Prior to Visit Medication Sig busPIRone (BUSPAR) 5 mg tablet Take 1 tablet by mouth twice daily. hydrOXYzine HCl (ATARAX) 10 mg tablet Take 1 tablet by mouth three times daily as needed for Anxiety. cabergoline (DOSTINEX) 0.5 mg tablet Take 1 tablet by mouth every Friday and Friday. No current facility-administered medications on file prior to visit. Curbside: No Screening Tools: No Substance Use / Abuse: No Outcome / Plan / Referrals: Attempts to Outreach: 1 attempt Referral made: Psychiatry - Internal Psychiatry-Internal referral type: Medication Management Final Disposition: Resources given (08-22-21 Pt was informed HO Jhaveri will be reaching out to sched appt with Sara Hernandez CNP) Patient Discharged?: Yes Patient reported that caregiver was able to meet their needs today?: Yes Internal Referrals : Yes -Patient advised of treatment options available at [facility]. Patient was informed that they will be moving on for further evaluation if seeking treatment within the [facility] [facility] Reason for External Referrals : N/A Intervention: Supportive Listening Provided referral information Resources Provided: Medication Management Time Spent: 15 minutes TAVON Villa documented in this encounter [facility] 08-22-2021 History of Presen t illness Narrative Chief Complaint Patient presents with: Refill Request HPI Mathew Glover is a 26 year old female who presents here today for Chronic Medical Conditions.. Patient with hx of ROSS, panic attacks, pituitary tumor-seeing endo. She still having anxiety. Is in counseling but hasn't gone recently. buspar is helping some but she still having panic attacks. Struggles with going out on her own. hesitant to try medications due to her anxiety. Past medical history, appointments, medications, allergies reviewed. Previous Medical History PAST MEDICAL HISTORY Diagnosis Date Adjustment disorder with anxious mood 01/12/2016 ROSS (generalized anxiety disorder) 01/26/2020 History of chicken pox reported at age 1 Panic disorder without agoraphobia 01/12/2016 Varicella reported at age 1 Previous Surgical History PAST SURGICAL HISTORY Procedure Laterality Date TONSILLECTOMY & ADENOIDECTOMY <AGE 12 age 5 Family History FAMILY HISTORY Problem Relation Age of Onset Cancer Maternal Grandmother cervical Patient Allergies ALLERGIES Allergen Reactions Bees Anaphylaxis Current Medications Current Outpatient Medications on File Prior to Visit Medication Sig busPIRone (BUSPAR) 5 mg tablet Take 1 tablet by mouth twice daily. hydrOXYzine HCl (ATARAX) 10 mg tablet Take 1 tablet by mouth three times daily as needed for Anxiety. cabergoline (DOSTINEX) 0.5 mg tablet Take 1 tablet by mouth every Friday and Friday. No current facility-administered medications on file prior to visit. Social History Social History Tobacco Use Smoking status: Never Smoker Smokeless tobacco: Never Used Substance Use Topics Alcohol use: No Drug use: No Review of Symptoms REVIEW OF SYSTEMS GENERAL: No weight loss, malaise or fevers NECK: Negative for lumps, goiter, pain and significant neck swelling RESPIRATORY: Negative for cough, hemoptysis, wheezing, COPD, dyspnea or shortness of breath CARDIOVASCULAR: +palpitations with anxiety. Negative for chest pain, leg swelling, hypertension, CHF NEURO: No history of headaches, syncope, paralysis, seizures or tremors EXAM: BP 102/70 (BP Site: Left Arm, BP Position: Sitting, BP Cuff Size: Regular Adult) Pulse 76 Temp 36.8 C (98.3 F) Resp 16 Wt 49.9 kg (110 lb) LMP 08/01/2021 (Approximate) BMI 20.12 kg/m General Appearance: Well appearing, alert, in no acute distress, well-hydrated, well nourished.. Neck: Supple, no adenopathy; thyroid symmetric, normal size, no bruits. Lungs: Lungs clear to auscultation. No wheezing, rhonchi, rales.. Heart: RRR without murmur, gallop, or rubs. No ectopy. Extremities: No deformities, edema, skin discoloration, clubbing or cyanosis. Good capillary refill. . Peripheral Pulses: Normal. PSYCH: Appearance: well dressed well groomed, cooperative and pleasant Behavior: good eye contact Speech: fluent and coherent Mood: anxious Affect: constricted Perceptions: none Thought process: perseverative Thought Content: normal Intelligence level: normal Insight: fair Judgment: fair . Health Maintenance List COVID-19 VACCINE(1) Never done HPV VACCINE(1 - 2-dose series) Never done HEPATITIS C SCREENING Never done HIV SCREENING Never done PAP TESTING Never done DTAP,TDAP,TD(4 - Td or Tdap) due on 09/22/2017 INFLUENZA(1) due on 10/18/2021 DEPRESSION SCREENING due on 08/22/2022 Data reviewed ASSESSMENT/PLAN: 1. ROSS (generalized anxiety disorder) - ICD9: 300.02, ICD10: F41.1 (primary diagnosis) We discussed different options. Patient is hesitant to make changes Willing to discuss with psych. Will put in consult to start the process. Continue with counseling. - CONSULT TO [facility]IMARY [facility] ADULT 2. Panic disorder without agoraphobia - ICD9: 300.01, ICD10: F41.0 As above - CONSULT TO [facility] 3. Adjustment disorder with anxious mood - ICD9: 309.24, ICD10: F43.22 As above - CONSULT TO [facility] 4. Pituitary tumor - ICD9: 239.7, ICD10: D49.7 Cont with endo. Patient declines routine blood work at this time. Heidy Tariq PA-C documented in this encounter [facility] 08-08-2021 Miscellaneous Notes Patient needs an in person visit with Dr. Cash. Must be in person as we have not seen her since she became a patient of ours. Thanks. Heidy Tariq PA-C zakiya--12/18/20 Next---none scheduled Last refill--12/18/20 60 With 5 Last labs--12/11/20 documented in this encounter [facility] Evaluation + Plan note Future Appointments Appointment Date:11/21/2022 08:00:00 AM Scheduled Provider:ALLIE PACHECO APRN - ALONZO Location:[facility] Appointment Type:PC OV Follow Up Future Scheduled TestsFerritin 10/24/22Iron Level 10/24/22Prolactin Level 10/24/22Thyroid Stimulating Hormone 10/24/22Vitamin B12 Level 10/24/22Reticulocytes (AO) 10/24/22Complete Blood Count 10/24/22PTH, Intact 10/24/22Vitamin D Level 10/24/22Complete Metabolic Panel 10/24/22TIBC 10/24/22 [facility] Diagnosis Panic disorder with agoraphobia- Primary Agoraphobia with panic disorder [facility] Diagnosis Tinea versicolor- Primary Pityriasis versicolor [facility] Diagnosis Panic disorder with agoraphobia- Primary Agoraphobia with panic disorder documented in this encounter [facility] note* Diagnosis Panic disorder with agoraphobia- Primary Agoraphobia with panic disorder documented in this encounter [facility] note* Diagnosis Panic disorder with agoraphobia Agoraphobia with panic disorder documented in this encounter [facility] note* Diagnosis Panic disorder with agoraphobia- Primary Agoraphobia with panic disorder documented in this encounter [facility] note* Diagnosis Encounter for long-term (current) use of medications- Primary Encounter for long-term (current) use of other medications Panic disorder with agoraphobia Agoraphobia with panic disorder documented in this encounter [facility] note* Diagnosis History of ADHD- Primary Personal history of other mental disorder Panic disorder with agoraphobia Agoraphobia with panic disorder documented in this encounter [facility] note* Diagnosis Dental infection- Primary Acute apical periodontitis of pulpal origin documented in this encounter [facility] note* Diagnosis Sore throat- Primary Acute pharyngitis documented in this encounter [facility] note* Diagnosis Panic disorder with agoraphobia- Primary Agoraphobia with panic disorder Recurrent major depressive disorder, in partial remission (HCC) documented in this encounter [facility] note* Diagnosis Recurrent major depressive disorder, in partial remission (HCC)- Primary Panic disorder with agoraphobia Agoraphobia with panic disorder documented in this encounter [facility] note* Diagnosis NO SHOW- Primary documented in this encounter [facility] course Narrative No data available for this section [facility] Hospital Discharge instructions No data available for this section [facility] Progress note No data available for this section [facility] Reason for referral (narrative)* Outpatient Procedure (Routine) - Pending Review Specialty Diagnoses / Procedures Referred By Contac t Referred To [facility] Diagnoses Encounter for long-term (current) use of medications Procedures ECG COMPLETE ECG ROUTINE ECG W/LEAST 12 LDS W/I&R Sara Hernandez APRN.HOME [facility] RN [address] [place] [address] [facility] [place] [address] [place] [address] Referral ID Status Reason Start Date Expiration Date Visits Requested Visits Authorized [id number] Pending Review Auto-Generat ed Referral 05/24/2022 05/24/2023 1 1 [facility] Summary Purpose Family History No Family History Records FoundNo Family History Records FoundNo Family History Records FoundNo Family History Records FoundNo Family History Records FoundNo Family History Records Found No data available for this section No Family History Records Found Advance Directives No Advanced Directives Records FoundNo Advanced Directives Records FoundNo Advanced Directives Records FoundNo Advanced Directives Records FoundNo Advanced Directives Records FoundNo Advanced Directives Records FoundNo Advanced Directives Records Found Additional Source Comments INFORMATION SOURCE (unrecogn ized section and content) DATE CREATED AUTHOR AUTHOR'S ORGANIZ ATION 09/07/2018 [facility] DATE CREATED AUTHOR AUTHOR'S ORGANIZ ATION 01/12/2019 [facility] DATE CREATED AUTHOR AUTHOR'S ORGANIZ ATION 02/09/2019 [facility] DATE CREATED AUTHOR AUTHOR'S ORGANIZ ATION 12/13/2019 [facility] DATE CREATED AUTHOR AUTHOR'S ORGANIZ ATION 12/16/2019 [facility] DATE CREATED AUTHOR AUTHOR'S ORGANIZ ATION 03/08/2023 [facility] Source Comments (unrecognize d section and content) In the event this informatio n is protected by the Federal Confidentiality of Alcohol and Drug Abuse Patient Records regulations: The Federal rules restrict any use of the information to criminally investigate or prosecute any alcohol or drug abuse patient.[facility] the event this information is protected by the Federal Confidentiality of Alcohol and Drug Abuse Patient Records regulations: The Federal rules restrict any use of the information to criminally investigate or prosecute any alcohol or drug abuse patient.[facility] the event this information is protected by the Federal Confidentiality of Alcohol and Drug Abuse Patient Records regulations: The Federal rules restrict any use of the information to criminally investigate or prosecute any alcohol or drug abuse patient.[facility] the event this information is protected by the Federal Confidentiality of Alcohol and Drug Abuse Patient Records regulations: The Federal rules restrict any use of the information to criminally investigate or prosecute any alcohol or drug abuse patient.[facility] the event this information is protected by the Federal Confidentiality of Alcohol and Drug Abuse Patient Records regulations: The Federal rules restrict any use of the information to criminally investigate or prosecute any alcohol or drug abuse patient.[facility] the event this information is protected by the Federal Confidentiality of Alcohol and Drug Abuse Patient Records regulations: The Federal rules restrict any use of the information to criminally investigate or prosecute any alcohol or drug abuse patient.[facility] the event this information is protected by the Federal Confidentiality of Alcohol and Drug Abuse Patient Records regulations: The Federal rules restrict any use of the information to criminally investigate or prosecute any alcohol or drug abuse patient.[facility] the event this information is protected by the Federal Confidentiality of Alcohol and Drug Abuse Patient Records regulations: The Federal rules restrict any use of the information to criminally investigate or prosecute any alcohol or drug abuse patient.[facility] the event this information is protected by the Federal Confidentiality of Alcohol and Drug Abuse Patient Records regulations: The Federal rules restrict any use of the information to criminally investigate or prosecute any alcohol or drug abuse patient.[facility] the event this information is protected by the Federal Confidentiality of Alcohol and Drug Abuse Patient Records regulations: The Federal rules restrict any use of the information to criminally investigate or prosecute any alcohol or drug abuse patient.[facility] the event this information is protected by the Federal Confidentiality of Alcohol and Drug Abuse Patient Records regulations: The Federal rules restrict any use of the information to criminally investigate or prosecute any alcohol or drug abuse patient.[facility] the event this information is protected by the Federal Confidentiality of Alcohol and Drug Abuse Patient Records regulations: The Federal rules restrict any use of the information to criminally investigate or prosecute any alcohol or drug abuse patient.[facility] the event this information is protected by the Federal Confidentiality of Alcohol and Drug Abuse Patient Records regulations: The Federal rules restrict any use of the information to criminally investigate or prosecute any alcohol or drug abuse patient.[facility] the event this information is protected by the Federal Confidentiality of Alcohol and Drug Abuse Patient Records regulations: The Federal rules restrict any use of the information to criminally investigate or prosecute any alcohol or drug abuse patient.[facility] the event this information is protected by the Federal Confidentiality of Alcohol and Drug Abuse Patient Records regulations: The Federal rules restrict any use of the information to criminally investigate or prosecute any alcohol or drug abuse patient.[facility] the event this information is protected by the Federal Confidentiality of Alcohol and Drug Abuse Patient Records regulations: The Federal rules restrict any use of the information to criminally investigate or prosecute any alcohol or drug abuse patient.[facility] the event this information is protected by the Federal Confidentiality of Alcohol and Drug Abuse Patient Records regulations: The Federal rules restrict any use of the information to criminally investigate or prosecute any alcohol or drug abuse patient.[facility] Reason for Visit (unrecogniz ed section and content) Reason Comments Refill Request Reason Comments Consult Initial SW Pt Outr each Reason Comments New Patient Evaluation Reason Comments Dermatitis Neck, back ,abdomen flaky spots that itchy x 3-4 months Reason Comments Follow Up Reason Comments Follow Up Reason Comments Dental Problem Upper right tooth in fection x 1 week Reason Comments Nasal Congestion drainage, chest radha estion, cough, sore throat x 2 weeks Reason Comments No Show Care Teams (unrecognized sec tion and content) Educational Administrator Relationship Specialty Start Date End Date Kyleigh Cash MD [address] [place] [address] PCP - General Family Practice 12/14/20 Educational Administrator Relationship Specialty Start Date End Date Kyleigh Cash MD [facility] [place] [address] PCP - General Family Practice 12/14/20 Educational Administrator Relationship Specialty Start Date End Date Kyleigh Cash MD [facility] [place] [address] PCP - General Family Practice 12/14/20 Educational Administrator Relationship Specialty Start Date End Date Kyleigh Cash MD [facility] [place] [address] PCP - General Family Medicine 12/14/20 Educational Administrator Relationship Specialty Start Date End Date Kyleigh Cash MD [facility] [place] [address] PCP - General Family Medicine 12/14/20 Educational Administrator Relationship Specialty Start Date End Date Kyleigh Cash MD [address] [place] [id number] PCP - General Family Medicine 12/14/20 Educational Administrator Relationship Specialty Start Date End Date Kyleigh Cash MD [address] [place] [address] PCP - General Family Medicine 12/14/20 Educational Administrator Relationship Specialty Start Date End Date Kyleigh Cash MD [address] [place] [address] PCP - General Family Medicine 12/14/20 Educational Administrator Relationship Specialty Start Date End Date Kyleigh Cash MD [address] [place] [address] PCP - General Family Medicine 12/14/20 Educational Administrator Relationship Specialty Start Date End Date Kyleigh Cash MD [address] [place] [address] PCP - General Family Medicine 12/14/20 Educational Administrator Relationship Specialty Start Date End Date Kyleigh Cash MD [address] [place] [address] PCP - General Family Medicine 12/14/20 Educational Administrator Relationship Specialty Start Date End Date Kyleigh Cash MD [address] [place] [address] PCP - General Family Medicine 12/14/20 Educational Administrator Relationship Specialty Start Date End Date Kyleigh Cash MD [address] [place] [address] PCP - General Family Medicine 12/14/20 Educational Administrator Relationship Specialty Start Date End Date Kyleigh Cash MD [address] [place] [address] PCP - General Family Medicine 12/14/20 Educational Administrator Relationship Specialty Start Date End Date Kyleigh Cash MD [address] [place] [address] PCP - General Family Medicine 12/14/20 FOR RECORDS PERTAINING TO PATIENTS WHO ARE OR HAVE BEEN ENROLLED IN A CHEMICAL DEPENDENCY/SUBSTANCEABUSE PROGRAM, SOME INFORMATION MAY BE OMITTED. This clinical summary was aggregated from multiple sources. Caution should be exercised in using it in the provision of clinical care. This summary normalizes information from multiple sources, and as a consequence, information in this document may materially change the coding, format and clinical context of patient data. In addition, data may be omitted in some cases. CLINICAL DECISIONS SHOULD BE BASED ON THE PRIMARY CLINICAL RECORDS. [facility]. provides no warranty or guarantee of the accuracy or completeness of information in this document.
[2023-03-21 21:17] VITALS: PULSE 72; RESP 16; O2SAT 97
== END 2023-03-21 21:18 | disposition home or self-care (01) ==
PROVIDERS: Emergency Provider Emergency Medicine; PCP Nurse Practitioner Family; Visit Provider Emergency Medicine
DX: K04.7 Periapical abscess without sinus (principal); Z98.890 Other specified postprocedural states
CPT/HCPCS: 99282

== ENCOUNTER → 2023-05-28 | Outpatient (CLI) | payer MEDICAID, SELFPAY ==
[2023-05-28 16:14] LABS: ALB/GLOB Ratio 1.2 RATIO (0.9-2.4); AST(SGOT) 32 U/L (15-37); Alanine Aminotransfer ALT/SGPT 33 U/L (13-56); Alkaline Phosphatase 43 U/L (45-117); Anion Gap -1 (5-15); BUN 13 mg/dL (7-18); BUN/Creat Ratio 14.8 RATIO (10-20); Calcium,Total 9.2 mg/dL (8.5-10.1); Chloride 107 mmol/L (98-107); Creatinine, Serum 0.88 mg/dL (0.55-1.02); EST Glomerular Filtration Rate 81 mL/min (>60); Est Glom Filt Rate - Afr Amer 98 mL/min (>60); Globulin 3.2 g/dL (2.2-4.2); Glucose 84 mg/dL (74-106); Prolactin 3.9 ng/mL; Protein, Total 7.2 g/dL (6.4-8.2); Sodium Level 138 mmol/L (136-145); Thyroid Stim Hormone (TSH) 0.72 uIU/mL (0.358-3.74)
== END | disposition home or self-care (01) ==
LOC: LAB 13:58
PROVIDERS: PCP Nurse Practitioner Family; Referring Provider Internal Medicine Endocrinology, Diabetes & Metabolism; Visit Provider Internal Medicine Endocrinology, Diabetes & Metabolism
DX: E22.1 Hyperprolactinemia (principal)
CPT/HCPCS: 36415; 80053; 84146; 84443

== ENCOUNTER 2023-11-15 22:02 | Emergency (ER) | payer MEDICAID, SELFPAY ==
[2023-11-15 22:02] VITALS: BP 115/78; PULSE 63; RESP 16; TEMP 36.6; O2SAT 99; BMI 20.9
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
[2023-11-15] MEDS: Acetaminophen 325 MG Tablet 650 MG PO (22:30)
--- NOTE | 2023-11-15 22:40 | CT_ITS ---
STUDY: CT FACIAL BONES WITHOUT CONTRAST REASON FOR EXAM: Female, 28 years old. ASSUALT RADIATION DOSAGE (If Supplied By Facility): CTDIvol = ( 29.38 ) mGy, DLP = ( 584.19 ) mGycm TECHNIQUE: The patient was scanned in a multi detector CT scanner. Sagittal and coronal images were reconstructed. Individualized dose optimization techniques were used for this CT. COMPARISON: None. FINDINGS: Soft tissue swelling about the left orbit. The left globe appears intact. Normal orbital yo and orbital contents. Normal nasal bones and anterior nasal spine. Normal facial bones. There is no demonstrated fracture. Normal visualized paranasal sinuses. CT/Sinus/Facial Bone IMPRESSION: Normal unenhanced CT of the facial bones. Electronically Signed: Baltazar Rocha MD at 23:19 EDT ,
--- NOTE | 2023-11-15 22:40 | CT_ITS ---
STUDY: CT BRAIN WITHOUT CONTRAST REASON FOR EXAM: Female, 28 years old. ASSUALT RADIATION DOSAGE (If Supplied By Facility): CTDIvol = ( 44.99 ) mGy, DLP = ( 779.24 ) mGycm TECHNIQUE: Transaxial CT imaging of the brain was performed without administration of intravenous contrast material. Individualized dose optimization techniques were used for this CT. COMPARISON: No relevant priors. FINDINGS: Normal soft tissue structures. Normal calvarium. Normal size ventricles and extra-axial spaces for the patient''s age. Normal white matter tracts of the cerebral hemispheres. Normal basal ganglia and thalami. Normal brainstem. Normal cerebellum. There is no intracranial hemorrhage. There are no findings of an acute ischemic infarction. Normal visualized paranasal sinuses. CT/Brain/Head without Contrast IMPRESSION: Normal unenhanced CT scan of the brain. Electronically Signed: Baltazar Rocha MD at 23:15 EDT ,
--- NOTE | 2023-11-15 22:40 | CT_ITS ---
STUDY: CT CERVICAL SPINE WITHOUT CONTRAST REASON FOR EXAM: Female, 28 years old. ASSUALT RADIATION DOSAGE (If Supplied By Facility): CTDIvol = ( 13.22 ) mGy, DLP = ( 260.47 ) mGycm TECHNIQUE: High resolution transaxial imaging was performed without contrast material. Sagittal and coronal images were reconstructed. Individualized dose optimization techniques were used for this CT. COMPARISON: None FINDINGS: Normal craniovertebral junction. Normal anterior atlantoaxial articulation. Normal odontoid process. Normal cervical lordosis. Normal vertebral bodies and posterior osseous elements. C2-3: Normal endplates. Normal disc height and morphology. Normal central canal and intervertebral neuroforamina. C3-4: Normal endplates. Normal disc height and morphology. Normal central canal and intervertebral neuroforamina. C4-5: Normal endplates. Normal disc height and morphology. Normal central canal and intervertebral neuroforamina. C5-6: Normal endplates. Normal disc height and morphology. Normal central canal and intervertebral neuroforamina. C6-7: Normal endplates. Normal disc height and morphology. Normal central canal and intervertebral neuroforamina. C7-T1: Normal endplates. Normal disc height and morphology. Normal central canal and intervertebral neuroforamina. Normal visualized soft tissue structures. CT/Spine Cervical without Contras IMPRESSION: Normal unenhanced CT examination of the cervical spine. Electronically Signed: Baltazar Rocha MD at 23:14 EDT ,
== END 2023-11-16 00:18 | disposition home or self-care (01) ==
PROVIDERS: Emergency Provider Emergency Medicine; PCP Nurse Practitioner Family; Visit Provider Emergency Medicine
DX: S00.12XA Contusion of left eyelid and periocular area, initial encounter (principal); S09.90XA Unspecified injury of head, initial encounter; H11.32 Conjunctival hemorrhage, left eye; R55 Syncope and collapse; Y04.0XXA Assault by unarmed brawl or fight, initial encounter; F40.00 Agoraphobia, unspecified; F41.0 Panic disorder [episodic paroxysmal anxiety]; Z79.899 Other long term (current) drug therapy; Z86.018 Personal history of other benign neoplasm
CPT/HCPCS: 70450; 70486; 72125; 99282

== ENCOUNTER → 2023-11-20 | Outpatient (CLI) | payer MEDICAID, SELFPAY ==
[2023-11-20 14:06] LABS: ALB/GLOB Ratio 1.2 RATIO (0.9-2.4); AST(SGOT) 11 U/L (15-37); Alanine Aminotransfer ALT/SGPT 12 U/L (13-56); Albumin, Serum 4.1 g/dL (3.2-5.0); Alkaline Phosphatase 40 U/L (45-117); Anion Gap 4 (5-15); BUN 13 mg/dL (7-18); BUN/Creat Ratio 18.2 RATIO (10-20); Calcium,Total 9.5 mg/dL (8.5-10.1); Chloride 104 mmol/L (98-107); Creatinine, Serum 0.72 mg/dL (0.55-1.02); EST Glomerular Filtration Rate 103 mL/min (>60); Est Glom Filt Rate - Afr Amer 124 mL/min (>60); Estradiol 61.5 pg/mL; Follicle Stimulating Hormone 4.1 mIU/mL; Globulin 3.3 g/dL (2.2-4.2); Glucose 95 mg/dL (74-106); Potassium 4.2 mmol/L (3.5-5.1); Protein, Total 7.4 g/dL (6.4-8.2); Sodium Level 136 mmol/L (136-145); T4 Free Direct 0.92 ng/dL (0.76-1.46)
[2023-11-26 11:09] LABS: Insulin Like Growth Factor 222 ng/mL (91-308); PROLACTIN 20.5 ng/mL (4.8-33.4); Testosterone, % Free 1.15 % (0.50-2.80); Testosterone, Free 0.68 ng/dL (0.10-0.85); Testosterone, Total 59 ng/dL (13-71)
== END | disposition home or self-care (01) ==
LOC: LAB 12:50
PROVIDERS: PCP Nurse Practitioner Family; Referring Provider Internal Medicine Endocrinology, Diabetes & Metabolism; Visit Provider Internal Medicine Endocrinology, Diabetes & Metabolism
DX: E22.1 Hyperprolactinemia (principal); N91.4 Secondary oligomenorrhea
CPT/HCPCS: 36415; 80053; 82627; 82670; 83001; 83002; 84146; 84305; 84402; 84403; 84439; 84443; 82626

== ENCOUNTER → 2023-11-24 | Outpatient (CLI) | payer MEDICAID, SELFPAY ==
[2023-11-24 16:25] LABS: Vitamin D,25 Hydroxy 40.4 ng/mL
[2023-11-24 16:28] LABS: ALB/GLOB Ratio 1.5 RATIO (0.9-2.4); AST(SGOT) 14 U/L (15-37); Alanine Aminotransfer ALT/SGPT 15 U/L (13-56); Albumin, Serum 4.3 g/dL (3.2-5.0); Alkaline Phosphatase 38 U/L (45-117); Anion Gap 2 (5-15); BUN 27 mg/dL (7-18); BUN/Creat Ratio 29.5 RATIO (10-20); Calcium,Total 9.2 mg/dL (8.5-10.1); Chloride 106 mmol/L (98-107); Creatinine, Serum 0.91 mg/dL (0.55-1.02); EST Glomerular Filtration Rate 77 mL/min (>60); Est Glom Filt Rate - Afr Amer 94 mL/min (>60); Globulin 2.9 g/dL (2.2-4.2); Glucose 93 mg/dL (74-106); Potassium 4.3 mmol/L (3.5-5.1); Protein, Total 7.2 g/dL (6.4-8.2); Sodium Level 138 mmol/L (136-145)
== END | disposition home or self-care (01) ==
PROVIDERS: PCP Nurse Practitioner Family
DX: E55.9 Vitamin D deficiency, unspecified (principal); Z79.899 Other long term (current) drug therapy
CPT/HCPCS: 36415; 80053; 82306

== ENCOUNTER → 2024-01-23 | Outpatient (CLI) | payer MEDICAID, SELFPAY ==
[2024-01-23 17:21] LABS: Internal QC Validated? YES +Cl - CLEAR BKGD; Pregnancy, Serum, hCG Quali. NEGATIVE Negative
[2024-01-25 06:37] LABS: PROLACTIN 8.9 ng/mL (4.8-33.4)
== END | disposition home or self-care (01) ==
LOC: LAB 16:44
PROVIDERS: PCP Nurse Practitioner Family; Referring Provider Internal Medicine Endocrinology, Diabetes & Metabolism; Visit Provider Internal Medicine Endocrinology, Diabetes & Metabolism
DX: E22.1 Hyperprolactinemia (principal)
CPT/HCPCS: 36415; 84146; 84703

== ENCOUNTER → 2024-06-08 | Outpatient (CLI) | payer MEDICAID, SELFPAY ==
[2024-06-09 04:07] LABS: PROLACTIN 7.4 ng/mL (4.8-33.4)
== END | disposition home or self-care (01) ==
PROVIDERS: PCP Nurse Practitioner Family; Visit Provider Internal Medicine Endocrinology, Diabetes & Metabolism
DX: N64.3 Galactorrhea not associated with childbirth (principal)
CPT/HCPCS: 36415; 84146